=== PATIENT | male | born 1955 | race Caucasian/White ===

== ENCOUNTER 2017-05-25 12:20 | Inpatient (IN) | payer SELFPAY ==
[~2017-05-25] VITALS: Ht 188 cm; Wt 92.1 kg
[~2017-05-25 12:20] MED LIST: AMLO5TAB4 PO; CEPH-569 PO
[2017-05-25] MEDS ORDERED: METHYLPREDNISOLONE SOD SUCC 125 MG/2 ML VIAL IV STA (15:59)
[2017-05-25] MEDS ORDERED: ONDANSETRON HCL 4MG/2ML VIAL IV STA (15:59)
[2017-05-25] MEDS ORDERED: SODIUM CHLORIDE 0.9% 500 ML IV ONE (15:59)
[2017-05-25] MEDS ORDERED: FUROSEMIDE 40MG/4ML VIAL IV STA (15:59)
[2017-05-25] MEDS ORDERED: VANCOMYCIN 1 G PREMIX 200 ML IV ONE (16:00)
[2017-05-25] MEDS ORDERED: PIPERACILLIN/TAZ 3.375G PREMIX 50 ML IV ONE (16:00)
[2017-05-25] MEDS ORDERED: IPRATROPIUM/ALBUTEROL 0.5-3(2.5)MG/3ML NEB HHN ONE (16:15)
[2017-05-25 16:36] LABS: BASOPHILS % 1.2 % (0.0-2.0); EOSINOPHILS % 2.9 % (0.0-5.0); HEMATOCRIT. 41.2 % (42.0-52.0); HEMOGLOBIN. 13.4 g/dL (14.0-18.0); LYMPHOCYTES % 11.1 % (20.0-50.0); MEAN CORPUSCULAR HEMOGLOBIN 29.8 pg (28.0-32.0); MEAN CORPUSCULAR VOLUME 92.1 fL (80.0-94.0); MEAN PLATELET VOLUME 10.3 fl (7.4-10.4); MONOCYTES % 7.8 % (2.0-8.0); PLATELET 158 x1000/uL (130-400); RED BLOOD CELL COUNT 4.48 mill/uL (4.7-6.1); RED CELL DISTRIBUTION WIDTH 14.1 % (11.6-14.6)
[2017-05-25 16:42] LABS: CHLORIDE 111 mEq/L (98-107)
[2017-05-25 16:45] LABS: PARTIAL THROMBOPLASTIN TIME 24.5 sec (24.0-34.0); PROTHROMBIN TIME 10.3 sec
[2017-05-25 16:53] LABS: CARBON DIOXIDE 27 mEq/L (21-32); CREATINE KINASE 207 IU/L (39-308); ETHANOL BLOOD < 10 mg/dL
[2017-05-25] MEDS ORDERED: CLONIDINE 0.1MG TABLET PO ONE (18:45)
[2017-05-25 19:28] LABS: *AMPHETAMINES SCREEN URINE PRESUMTIVE POSITIVE (NEGATIVE); *BARBITURATES SCREEN URINE NEGATIVE (NEGATIVE); *BENZODIAZEPINES SCREEN URINE NEGATIVE (NEGATIVE); *COCAINE SCREEN URINE NEGATIVE (NEGATIVE); CANNABINOID URINE SCREEN NEGATIVE (NEGATIVE); METHADONE URINE SCREEN NEGATIVE (NEGATIVE); OPIATES URINE SCREEN NEGATIVE (NEGATIVE); PHENCYCLIDINE URINE SCREEN NEGATIVE (NEGATIVE)
[2017-05-25 20:41] VITALS: BP 160/103
[2017-05-25 20:47] VITALS: BP 160/103
[2017-05-25] MEDS ORDERED: ACETAMINOPHEN 325MG TABLET PO PRN (21:45)
[2017-05-25] MEDS ORDERED: VANCOMYCIN 1 G PREMIX 200 ML IV NR (23:00)
[2017-05-26 00:01] VITALS: BP 153/107
[2017-05-26] MEDS ORDERED: VANCOMYCIN 1 G PREMIX 200 ML IV NR (02:00)
[2017-05-26 04:00] VITALS: BP 154/98
[2017-05-26 06:02] LABS: HEMATOCRIT. 40.9 % (42.0-52.0); HEMOGLOBIN. 13.4 g/dL (14.0-18.0); MEAN CORPUSCULAR HEMOGLOBIN 29.9 pg (28.0-32.0); MEAN CORPUSCULAR VOLUME 91.3 fL (80.0-94.0); MEAN PLATELET VOLUME 10.5 fl (7.4-10.4); PLATELET 147 x1000/uL (130-400); RED BLOOD CELL COUNT 4.48 mill/uL (4.7-6.1); RED CELL DISTRIBUTION WIDTH 13.8 % (11.6-14.6)
[2017-05-26 08:00] VITALS: BP 150/99
[2017-05-26] MEDS: FUROSEMIDE 40MG TABLET PO SCH (08:22)
[2017-05-26] MEDS: AMLODIPINE 10MG TABLET PO SCH (08:25)
[2017-05-26 12:00] VITALS: BP 147/103
[2017-05-26] MEDS: CLONIDINE 0.1MG TABLET PO PRN ×2 (13:34→20:52)
[2017-05-26 13:48] LABS: PLATELET ESTIMATE NORMAL
[2017-05-26 16:00] VITALS: BP 137/99
[2017-05-26 20:00] VITALS: BP 138/109
[2017-05-27] VITALS (8 sets, daily range): BP systolic 141–156; BP diastolic 90–113
[2017-05-27] MEDS ORDERED: IPRATROPIUM/ALBUTEROL 0.5-3(2.5)MG/3ML NEB HHN PRN (06:00)
[2017-05-27] MEDS: FUROSEMIDE 40MG TABLET PO SCH (08:23)
[2017-05-27] MEDS: AMLODIPINE 10MG TABLET PO SCH (08:23)
[2017-05-27 09:33] LABS: T4 FREE 0.97 ng/dL (0.76-1.46)
[2017-05-27] MEDS: LOSARTAN POTASSIUM 50 MG TABLET PO SCH (13:05)
[2017-05-27] MEDS: VANCOMYCIN 1 G PREMIX 200 ML IV SCH (16:27)
[2017-05-27] MEDS: CLONIDINE 0.1MG TABLET PO PRN (16:33)
[2017-05-27 18:42] LABS: CREATINE KINASE MB FRACTION 3.2 ng/mL (0.5-3.6); TROPONIN I 0.08 ng/mL (0.00-0.04)
[2017-05-28 00:05] VITALS: BP 152/100
[2017-05-28 02:55] LABS: TROPONIN I 0.08 ng/mL (0.00-0.04)
[2017-05-28 04:00] VITALS: BP 155/99
[2017-05-28 08:00] VITALS: BP 162/97
[2017-05-28] MEDS: LOSARTAN POTASSIUM 50 MG TABLET PO SCH (08:57)
[2017-05-28] MEDS: FUROSEMIDE 40MG TABLET PO SCH (08:57)
[2017-05-28] MEDS: AMLODIPINE 10MG TABLET PO SCH (08:57)
[2017-05-28 09:18] LABS: CREATINE KINASE MB FRACTION 2.7 ng/mL (0.5-3.6); TROPONIN I 0.09 ng/mL (0.00-0.04)
[2017-05-28 12:00] VITALS: BP 127/87
[2017-05-28] MEDS ORDERED: CEFTRIAXONE 1 G PREMIX 50 ML IV SCH (12:00)
[2017-05-28 12:12] LABS: BASOPHILS % 1.3 % (0.0-2.0); EOSINOPHILS % 1.2 % (0.0-5.0); HEMATOCRIT. 45.1 % (42.0-52.0); HEMOGLOBIN. 14.8 g/dL (14.0-18.0); LYMPHOCYTES % 7.8 % (20.0-50.0); MEAN CORPUSCULAR HEMOGLOBIN 29.7 pg (28.0-32.0); MEAN CORPUSCULAR VOLUME 90.7 fL (80.0-94.0); MONOCYTES % 6.5 % (2.0-8.0); NEUTROPHILS % 83.2 % (40.0-76.0); PLATELET 171 x1000/uL (130-400); RED BLOOD CELL COUNT 4.97 mill/uL (4.7-6.1); RED CELL DISTRIBUTION WIDTH 14.1 % (11.6-14.6)
[2017-05-28 12:24] LABS: CARBON DIOXIDE 28 mEq/L (21-32); CHLORIDE 103 mEq/L (98-107)
[2017-05-28 16:00] VITALS: BP 140/99
[2017-05-28] MEDS: VANCOMYCIN 1 G PREMIX 200 ML IV SCH (16:03)
== END 2017-05-28 18:08 | disposition left against medical advice (07) | DRG 460 ==
LOC: ER 18:48 → 7WST 18:49 → EDBEDREQ 18:51 → ER 18:59 → ENRESERV 19:19
PROVIDERS: ADMIT Family Medicine; ATTEND Family Medicine
DX: N17.9 Acute kidney failure, unspecified (principal); E11.22 Type 2 diabetes mellitus with diabetic chronic kidney disease; I12.9 Hypertensive chronic kidney disease with stage 1 through stage 4 chronic kidney disease, or unspecified chronic kidney disease; J44.9 Chronic obstructive pulmonary disease, unspecified; Z53.21 Procedure and treatment not carried out due to patient leaving prior to being seen by health care provider; F15.10 Other stimulant abuse, uncomplicated; F17.210 Nicotine dependence, cigarettes, uncomplicated; I86.1 Scrotal varices; I89.0 Lymphedema, not elsewhere classified; N18.9 Chronic kidney disease, unspecified; Z60.2 Problems related to living alone; L03.90 Cellulitis, unspecified
CPT/HCPCS: 36415; 71010; 76770; 80048; 80053; 80061; 80202; 80305; 82550; 82553; 83036; 83605; 83690; 83880; 84439; 84443; 84484; 85025; 85379; 85610; 85730; 87040; 87086; 93005; 93970; 94640; 96365; 96367; 96375; 99285; 99406; G0482; J0696; J1940; J2405; J2543; J2930; J3370; J7040; J7050; J7620

== ENCOUNTER 2017-07-08 06:23 | Inpatient (IN) | payer SELFPAY ==
[~2017-07-08] VITALS: Ht 188 cm; Wt 93.7 kg
[2017-07-08 07:25] LABS: EOSINOPHILS % 2.7 % (0.0-5.0); HEMATOCRIT. 39.6 % (42.0-52.0); HEMOGLOBIN. 12.8 g/dL (14.0-18.0); LYMPHOCYTES % 11.8 % (20.0-50.0); MEAN CORPUSCULAR VOLUME 89.7 fL (80.0-94.0); MEAN PLATELET VOLUME 10.1 fl (7.4-10.4); MONOCYTES % 9.5 % (2.0-8.0); PLATELET 179 x1000/uL (130-400); RED BLOOD CELL COUNT 4.41 mill/uL (4.7-6.1); RED CELL DISTRIBUTION WIDTH 14.3 % (11.6-14.6)
[2017-07-08 07:30] LABS: PROTHROMBIN TIME 10.7 sec (9.4-11.6)
[2017-07-08 07:40] LABS: CARBON DIOXIDE 23 mEq/L (21-32); CHLORIDE 109 mEq/L (98-107); TROPONIN I 0.09 ng/mL (0.00-0.04)
[2017-07-08] MEDS ORDERED: FUROSEMIDE 20MG/2ML VIAL IVP ONE (09:00)
[2017-07-08] MEDS ORDERED: HYDRALAZINE 20MG/ML VIAL IV ONE (09:45)
[2017-07-08] MEDS ORDERED: MAGNESIUM/ALUMINUM HYDROXIDE/SIMETHICONE 30ML UDC PO PRN (10:45)
[2017-07-08] MEDS ORDERED: FUROSEMIDE 40MG/4ML VIAL IV SCH ×2 (10:45→15:45)
[2017-07-08] MEDS ORDERED: IPRATROPIUM/ALBUTEROL 0.5-3(2.5)MG/3ML NEB INH PRN (10:45)
[2017-07-08] MEDS ORDERED: GUAIFENESIN 200MG/10ML SUGAR FREE UDC PO PRN (10:45)
[2017-07-08] MEDS ORDERED: DOCUSATE SODIUM 100MG CAPSULE PO PRN (10:45)
[2017-07-08] MEDS ORDERED: CLONIDINE 0.1MG TABLET PO PRN (10:45)
[2017-07-08] MEDS ORDERED: AMLODIPINE 10MG TABLET PO SCH (10:45)
[2017-07-08] MEDS ORDERED: ENOXAPARIN 40MG/0.4ML SYR SUBCUT SCH (10:45)
[2017-07-08] MEDS ORDERED: DIPHENHYDRAMINE 50MG/ML VIAL IV PRN (10:45)
[2017-07-08] MEDS ORDERED: ONDANSETRON HCL 4MG/2ML VIAL IV PRN (10:45)
[2017-07-08] MEDS ORDERED: HYDROMORPHONE HCL/PF 2MG/ML CPJ IV PRN ×2 (10:45→15:45)
[2017-07-08] MEDS ORDERED: ACETAMINOPHEN 325MG TABLET PO PRN (10:45)
[2017-07-08 15:25] VITALS: BP 152/115
[2017-07-08 15:52] VITALS: BP 152/115
[2017-07-08 16:58] LABS: CREATINE KINASE MB FRACTION 5.9 ng/mL (0.5-3.6); TROPONIN I 0.07 ng/mL (0.00-0.04)
[2017-07-08] MEDS: CLONIDINE 0.1MG TABLET PO PRN (18:02)
[2017-07-08 18:03] VITALS: BP 159/118
[2017-07-08 19:59] VITALS: BP 148/88
[2017-07-09 00:02] VITALS: BP 154/115
[2017-07-09] MEDS: CLONIDINE 0.1MG TABLET PO PRN (00:30)
[2017-07-09 04:00] VITALS: BP 159/115
[2017-07-09 08:00] VITALS: BP 148/99
[2017-07-09] MEDS: ASPIRIN 81MG EC TABLET PO SCH (08:49)
[2017-07-09] MEDS: AMLODIPINE 10MG TABLET PO SCH (08:50)
[2017-07-09] MEDS: ENOXAPARIN 40MG/0.4ML SYR SUBCUT SCH (08:57)
[2017-07-09] MEDS ORDERED: ASPIRIN 81MG EC TABLET PO SCH (09:00)
[2017-07-09 12:00] VITALS: BP 145/93
[2017-07-09] MEDS: METOPROLOL TARTRATE 25MG TABLET PO SCH ×2 (12:30→20:59)
[2017-07-09 16:00] VITALS: BP 142/95
[2017-07-09 20:00] VITALS: BP 138/96
[2017-07-10] VITALS: BP 132/83
[2017-07-10 04:00] VITALS: BP 124/78
[2017-07-10 08:00] VITALS: BP 143/94
[2017-07-10] MEDS: METOPROLOL TARTRATE 25MG TABLET PO SCH (08:26)
[2017-07-10] MEDS: AMLODIPINE 10MG TABLET PO SCH (08:26)
[2017-07-10] MEDS: ASPIRIN 81MG EC TABLET PO SCH (08:26)
[2017-07-10] MEDS: ENOXAPARIN 40MG/0.4ML SYR SUBCUT SCH (08:27)
[2017-07-10] MEDS ORDERED: FUROSEMIDE 40MG/4ML VIAL IV SCH (09:00)
[2017-07-10 12:00] VITALS: BP 140/78
== END 2017-07-10 12:39 | disposition home or self-care (01) | DRG 194 ==
LOC: ER 06:23 → ENRESERV 13:23 → ER 15:30 → 7WST 15:39
PROVIDERS: ADMIT Hospitalist; ATTEND Hospitalist
DX: I13.0 Hypertensive heart and chronic kidney disease with heart failure and stage 1 through stage 4 chronic kidney disease, or unspecified chronic kidney disease (principal); F15.10 Other stimulant abuse, uncomplicated; I50.21 Acute systolic (congestive) heart failure; F17.200 Nicotine dependence, unspecified, uncomplicated; N18.9 Chronic kidney disease, unspecified; N50.89 Other specified disorders of the male genital organs
CPT/HCPCS: 36415; 71010; 80053; 82550; 82553; 83880; 84484; 85025; 85610; 93005; 93306; 93970; 96374; 96375; 99285; J0360; J1650; J1940

== ENCOUNTER 2017-08-09 14:51 | Emergency (ER) | payer SELFPAY ==
[~2017-08-09] VITALS: Ht 188 cm; Wt 95.0 kg
[2017-08-09 15:40] VITALS: BP 144/94
== END 2017-08-09 16:00 | disposition left against medical advice (07) ==
LOC: ER 15:53
DX: M79.89 Other specified soft tissue disorders (principal); Z53.21 Procedure and treatment not carried out due to patient leaving prior to being seen by health care provider

== ENCOUNTER 2017-08-10 03:32 | Emergency (ER) | payer SELFPAY ==
[~2017-08-10] VITALS: Ht 188 cm; Wt 95.0 kg
[2017-08-10 10:05] VITALS: BP 145/90
== END 2017-08-10 10:15 | disposition home or self-care (01) ==
LOC: ER 03:33
DX: L03.116 Cellulitis of left lower limb (principal); I10 Essential (primary) hypertension; F17.200 Nicotine dependence, unspecified, uncomplicated; F15.10 Other stimulant abuse, uncomplicated
CPT/HCPCS: 99283; Z7610

== ENCOUNTER 2017-10-13 12:48 | Inpatient (IN) | payer SELFPAY ==
[~2017-10-13] VITALS: Ht 190.5 cm; Wt 106.6 kg
[2017-10-13] MEDS ORDERED: SODIUM CHLORIDE 0.9% 1000ML BAG (SEPSIS BOLUS) IV ONE (17:15)
[2017-10-13] MEDS ORDERED: VANCOMYCIN 1 G PREMIX 200 ML IV ONE (17:15)
[2017-10-13 17:24] LABS: BASOPHILS % 0.9 % (0.0-2.0); EOSINOPHILS % 1.5 % (0.0-5.0); HEMATOCRIT. 39.9 % (42.0-52.0); HEMOGLOBIN. 12.5 g/dL (14.0-18.0); LYMPHOCYTES % 8.2 % (20.0-50.0); MEAN CORPUSCULAR HEMOGLOBIN 27.2 pg (28.0-32.0); MEAN CORPUSCULAR VOLUME 86.8 fL (80.0-94.0); MEAN PLATELET VOLUME 9.7 fl (7.4-10.4); MONOCYTES % 10.7 % (2.0-8.0); NEUTROPHILS % 78.7 % (40.0-76.0); PLATELET 149 x1000/uL (130-400); RED CELL DISTRIBUTION WIDTH 16.4 % (11.6-14.6)
[2017-10-13 17:28] LABS: CHLORIDE 109 mEq/L (98-107)
[2017-10-13 17:33] LABS: CARBON DIOXIDE 21 mEq/L (21-32)
[2017-10-13] MEDS ORDERED: DIPHENHYDRAMINE 50MG/ML VIAL IV PRN (19:30)
[2017-10-13] MEDS ORDERED: SODIUM CHLORIDE 0.9% 1,000 ML IV ONE (19:30)
[2017-10-13] MEDS ORDERED: DOCUSATE SODIUM 100MG CAPSULE PO PRN (19:30)
[2017-10-13] MEDS ORDERED: ACETAMINOPHEN 325MG TABLET PO PRN (19:30)
[2017-10-13] MEDS ORDERED: ONDANSETRON HCL 4MG/2ML VIAL IV PRN (19:30)
[2017-10-13] MEDS ORDERED: MORPHINE SULFATE 2 MG/ML CPJ (NOT FOR IM USE) IV PRN (19:30)
[2017-10-13] MEDS ORDERED: MAGNESIUM/ALUMINUM HYDROXIDE/SIMETHICONE 30ML UDC PO PRN (19:30)
[2017-10-13] MEDS: CLONIDINE 0.1MG TABLET PO PRN (20:51)
[2017-10-13 22:00] VITALS: BP 146/100
[2017-10-14] VITALS: BP 126/89
[2017-10-14] MEDS ORDERED: DEXTROSE 50% WATER 50ML SYRINGE IV PRN ×2 (01:45→02:45)
[2017-10-14 04:00] VITALS: BP 152/99
[2017-10-14 05:21] LABS: CLARITY URINE CLEAR (CLEAR); COLOR URINE YELLOW (YELLOW); KETONES URINE NEGATIVE (NEGATIVE); LEUKOCYTE ESTERASE URINE NEGATIVE (NEGATIVE); NITRITE URINE NEGATIVE (NEGATIVE); OCCULT BLOOD URINE NEGATIVE (NEGATIVE); PROTEIN URINE 2+ (NEGATIVE)
[2017-10-14 06:02] LABS: *AMPHETAMINES SCREEN URINE PRESUMTIVE POSITIVE (NEGATIVE); *BARBITURATES SCREEN URINE NEGATIVE (NEGATIVE); *BENZODIAZEPINES SCREEN URINE NEGATIVE (NEGATIVE); *COCAINE SCREEN URINE NEGATIVE (NEGATIVE); CANNABINOID URINE SCREEN NEGATIVE (NEGATIVE); METHADONE URINE SCREEN NEGATIVE (NEGATIVE); OPIATES URINE SCREEN NEGATIVE (NEGATIVE); PHENCYCLIDINE URINE SCREEN NEGATIVE (NEGATIVE)
[2017-10-14] MEDS: BLOOD SUGAR DIAGNOSTIC STRIP TEST SCH ×4 (06:42→21:21)
[2017-10-14 07:03] LABS: HEMATOCRIT. 36.5 % (42.0-52.0); HEMOGLOBIN. 11.8 g/dL (14.0-18.0); MEAN CORPUSCULAR HEMOGLOBIN 27.9 pg (28.0-32.0); MEAN CORPUSCULAR VOLUME 86.5 fL (80.0-94.0); MEAN PLATELET VOLUME 9.9 fl (7.4-10.4); PLATELET 135 x1000/uL (130-400); RED BLOOD CELL COUNT 4.22 mill/uL (4.7-6.1); RED CELL DISTRIBUTION WIDTH 16.7 % (11.6-14.6)
[2017-10-14 07:47] LABS: PHOSPHORUS 4.5 mg/dL (2.5-4.9)
[2017-10-14 08:00] VITALS: BP 156/100
[2017-10-14] MEDS: INSULIN LISPRO 100 UNITS/ML SUBCUT SCH ×4 (08:10→21:00)
[2017-10-14] MEDS: ENOXAPARIN 40MG/0.4ML SYR SUBCUT SCH (09:22)
[2017-10-14] MEDS: AMLODIPINE 5MG TABLET PO SCH (09:23)
[2017-10-14 09:26] LABS: PLATELET ESTIMATE NORMAL
[2017-10-14 12:00] VITALS: BP 147/97
[2017-10-14] MEDS ORDERED: VANCOMYCIN 1 G PREMIX 200 ML IV SCH (12:00)
[2017-10-14 16:00] VITALS: BP 155/97
[2017-10-14 20:00] VITALS: BP 156/89
[2017-10-14 22:17] LABS: PHOSPHORUS 3.7 mg/dL (2.5-4.9)
[2017-10-15] VITALS (7 sets, daily range): BP systolic 130–163; BP diastolic 83–100
[2017-10-15 07:32] LABS: HEMATOCRIT. 36.2 % (42.0-52.0); HEMOGLOBIN. 11.6 g/dL (14.0-18.0); MEAN CORPUSCULAR HEMOGLOBIN 27.6 pg (28.0-32.0); MEAN CORPUSCULAR VOLUME 86.4 fL (80.0-94.0); MEAN PLATELET VOLUME 10.2 fl (7.4-10.4); PLATELET 143 x1000/uL (130-400); RED BLOOD CELL COUNT 4.19 mill/uL (4.7-6.1); RED CELL DISTRIBUTION WIDTH 16.6 % (11.6-14.6)
[2017-10-15] MEDS: BLOOD SUGAR DIAGNOSTIC STRIP TEST SCH ×4 (07:40→21:56)
[2017-10-15] MEDS: INSULIN LISPRO 100 UNITS/ML SUBCUT SCH ×4 (08:10→21:00)
[2017-10-15] MEDS: AMLODIPINE 5MG TABLET PO SCH (09:36)
[2017-10-15] MEDS: ENOXAPARIN 40MG/0.4ML SYR SUBCUT SCH (09:37)
[2017-10-15 11:24] LABS: PLATELET ESTIMATE NORMAL
[2017-10-15] MEDS ORDERED: VANCOMYCIN 1 G PREMIX 200 ML IV SCH ×2 (12:00→14:00)
[2017-10-15] MEDS: PIPERACILLIN/TAZ 3.375G PREMIX 50 ML IV SCH ×2 (17:03→21:56)
[2017-10-15] MEDS ORDERED: IPRATROPIUM BROMIDE (0.02%) 0.5MG/2.5ML NEB HHN PRN (17:30)
[2017-10-15] MEDS: FUROSEMIDE 40MG/4ML VIAL IVP SCH (17:52)
[2017-10-16] VITALS: BP 122/73
[2017-10-16] MEDS: PIPERACILLIN/TAZ 3.375G PREMIX 50 ML IV SCH ×3 (03:45→17:23)
[2017-10-16 04:00] VITALS: BP 152/83
[2017-10-16] MEDS: BLOOD SUGAR DIAGNOSTIC STRIP TEST SCH ×4 (05:33→21:00)
[2017-10-16 07:28] LABS: BASOPHILS % 1.1 % (0.0-2.0); EOSINOPHILS % 3.2 % (0.0-5.0); HEMATOCRIT. 36.1 % (42.0-52.0); HEMOGLOBIN. 11.6 g/dL (14.0-18.0); MEAN CORPUSCULAR VOLUME 86.9 fL (80.0-94.0); MEAN PLATELET VOLUME 9.9 fl (7.4-10.4); MONOCYTES % 12.1 % (2.0-8.0); NEUTROPHILS % 74.6 % (40.0-76.0); PLATELET 146 x1000/uL (130-400); RED BLOOD CELL COUNT 4.15 mill/uL (4.7-6.1); RED CELL DISTRIBUTION WIDTH 16.7 % (11.6-14.6)
[2017-10-16 08:00] VITALS: BP 147/82
[2017-10-16] MEDS: INSULIN LISPRO 100 UNITS/ML SUBCUT SCH ×4 (08:10→20:59)
[2017-10-16] MEDS: AMLODIPINE 5MG TABLET PO SCH (09:20)
[2017-10-16] MEDS: ENOXAPARIN 40MG/0.4ML SYR SUBCUT SCH (09:21)
[2017-10-16] MEDS: VANCOMYCIN 1 G PREMIX 200 ML IV SCH (11:00)
[2017-10-16 12:00] VITALS: BP 146/89
[2017-10-16 13:59] LABS: HEPATITIS B CORE AB IGM <0.05
[2017-10-16 14:19] LABS: HEPATITIS B SURFACE AB < 3.1 mIU/mL
[2017-10-16 16:00] VITALS: BP 162/90
[2017-10-16] MEDS: FUROSEMIDE 40MG/4ML VIAL IVP SCH (17:23)
[2017-10-16 20:00] VITALS: BP 162/99
[2017-10-16] MEDS: CLONIDINE 0.1MG TABLET PO PRN (20:58)
[2017-10-17] VITALS: BP 149/92
[2017-10-17] MEDS: PIPERACILLIN/TAZ 3.375G PREMIX 50 ML IV SCH ×3 (02:34→16:19)
[2017-10-17 04:00] VITALS: BP 158/93
[2017-10-17] MEDS: INSULIN LISPRO 100 UNITS/ML SUBCUT SCH ×3 (07:33→16:20)
[2017-10-17] MEDS: BLOOD SUGAR DIAGNOSTIC STRIP TEST SCH ×3 (07:33→16:20)
[2017-10-17 08:00] VITALS: BP 166/104
[2017-10-17] MEDS: AMLODIPINE 5MG TABLET PO SCH (08:45)
[2017-10-17] MEDS: ENOXAPARIN 40MG/0.4ML SYR SUBCUT SCH (08:45)
[2017-10-17] MEDS: VANCOMYCIN 1 G PREMIX 200 ML IV SCH (11:35)
[2017-10-17 12:00] VITALS: BP 152/84
[2017-10-17 16:00] VITALS: BP 156/86
[2017-10-17] MEDS: FUROSEMIDE 40MG/4ML VIAL IVP SCH (16:19)
== END 2017-10-17 18:18 | disposition home or self-care (01) | DRG 383 ==
LOC: ER 12:48 → 7WST 17:06 → SUPCPDRO 19:19 → ENRESERV 20:56
PROVIDERS: ADMIT Internal Medicine Nephrology; ATTEND Internal Medicine Nephrology
DX: L03.116 Cellulitis of left lower limb (principal); E11.22 Type 2 diabetes mellitus with diabetic chronic kidney disease; N17.9 Acute kidney failure, unspecified; N18.4 Chronic kidney disease, stage 4 (severe); E44.1 Mild protein-calorie malnutrition; L03.115 Cellulitis of right lower limb; F17.210 Nicotine dependence, cigarettes, uncomplicated; I12.9 Hypertensive chronic kidney disease with stage 1 through stage 4 chronic kidney disease, or unspecified chronic kidney disease; F15.90 Other stimulant use, unspecified, uncomplicated; I87.2 Venous insufficiency (chronic) (peripheral); J44.1 Chronic obstructive pulmonary disease with (acute) exacerbation; K76.9 Liver disease, unspecified; F19.10 Other psychoactive substance abuse, uncomplicated; Z68.29 Body mass index [BMI] 29.0-29.9, adult; Z91.19 Patient's noncompliance with other medical treatment and regimen
CPT/HCPCS: 36415; 76770; 80048; 80053; 80202; 80305; 81001; 82962; 83036; 83735; 83970; 84100; 84153; 85025; 86705; 86706; 86803; 87040; 87186; 93970; 94640; 94664; 96365; 99285; A6261; J1650; J1940; J2543; J3370; J7030; J7040; A4315

== ENCOUNTER 2017-11-10 11:02 | Inpatient (IN) | payer SELFPAY ==
[~2017-11-10] VITALS: Ht 182.9 cm; Wt 105.7 kg
[2017-11-10] MEDS ORDERED: FUROSEMIDE 40MG/4ML VIAL IVP ONE (11:45)
[2017-11-10 12:13] LABS: BASOPHILS % 0.5 % (0.0-2.0); EOSINOPHILS % 1.6 % (0.0-5.0); HEMATOCRIT. 37.9 % (42.0-52.0); HEMOGLOBIN. 11.7 g/dL (14.0-18.0); MEAN CORPUSCULAR HEMOGLOBIN 26.1 pg (28.0-32.0); MEAN CORPUSCULAR VOLUME 84.8 fL (80.0-94.0); MEAN PLATELET VOLUME 9.6 fl (7.4-10.4); MONOCYTES % 9.1 % (2.0-8.0); NEUTROPHILS % 80.8 % (40.0-76.0); PLATELET 160 x1000/uL (130-400); RED BLOOD CELL COUNT 4.47 mill/uL (4.7-6.1); RED CELL DISTRIBUTION WIDTH 16.8 % (11.6-14.6)
[2017-11-10 12:16] LABS: INR 1.1; PROTHROMBIN TIME 11.7 sec (9.4-11.6)
[2017-11-10 12:28] LABS: CARBON DIOXIDE 24 mEq/L (21-32); CHLORIDE 110 mEq/L (98-107); TROPONIN I 0.26 ng/mL (0.00-0.04)
[2017-11-10] MEDS ORDERED: ASPIRIN 325MG TABLET PO ONE (13:00)
[2017-11-10] MEDS ORDERED: DOCUSATE SODIUM 100MG CAPSULE PO PRN (17:15)
[2017-11-10] MEDS ORDERED: CLONIDINE 0.1MG TABLET PO PRN (17:15)
[2017-11-10] MEDS ORDERED: DIPHENHYDRAMINE 50MG/ML VIAL IV PRN (17:15)
[2017-11-10] MEDS ORDERED: MAGNESIUM/ALUMINUM HYDROXIDE/SIMETHICONE 30ML UDC PO PRN (17:15)
[2017-11-10] MEDS ORDERED: NA PHOS,M-B/NA PHOS,DI-BA ENEMA 118ML PR PRN (17:15)
[2017-11-10] MEDS ORDERED: ACETAMINOPHEN 325MG TABLET PO PRN (17:15)
[2017-11-10] MEDS ORDERED: GUAIFENESIN 200MG/10ML SUGAR FREE UDC PO PRN (17:15)
[2017-11-10] MEDS ORDERED: MORPHINE SULFATE 4 MG/ML CPJ (NOT FOR IM USE) IV PRN (17:15)
[2017-11-10] MEDS ORDERED: HYDROCODONE/ACETAMINOPHEN 5/325MG TABLET PO PRN (17:15)
[2017-11-10] MEDS ORDERED: IPRATROPIUM/ALBUTEROL 0.5-3(2.5)MG/3ML NEB INH PRN (17:15)
[2017-11-10] MEDS ORDERED: ALBUTEROL (0.083%) 2.5MG/3ML NEB ONE (17:49)
[2017-11-10] MEDS ORDERED: IPRATROPIUM BROMIDE (0.02%) 0.5MG/2.5ML NEB ONE (17:49)
[2017-11-10 20:30] VITALS: BP 158/89
[2017-11-10] MEDS ORDERED: LORAZEPAM 2MG/ML CPJ IV PRN (20:32)
[2017-11-10] MEDS: ENOXAPARIN 30MG/0.3ML SYR SUBCUT SCH (21:18)
[2017-11-10 22:12] LABS: TROPONIN I 0.22 ng/mL (0.00-0.04)
[2017-11-10 22:32] VITALS: BP 158/89
[2017-11-11 00:21] VITALS: BP 128/79
[2017-11-11 04:00] VITALS: BP_SYST 120; BP_SYST 150; BP_DIAS 70; BP_DIAS 99
[2017-11-11 05:50] LABS: BASOPHILS % 1.4 % (0.0-2.0); EOSINOPHILS % 1.9 % (0.0-5.0); HEMATOCRIT. 37.2 % (42.0-52.0); HEMOGLOBIN. 11.9 g/dL (14.0-18.0); LYMPHOCYTES % 11.5 % (20.0-50.0); MEAN CORPUSCULAR HEMOGLOBIN 27.1 pg (28.0-32.0); MEAN CORPUSCULAR VOLUME 84.5 fL (80.0-94.0); MEAN PLATELET VOLUME 9.6 fl (7.4-10.4); NEUTROPHILS % 76.2 % (40.0-76.0); PLATELET 159 x1000/uL (130-400); RED CELL DISTRIBUTION WIDTH 16.6 % (11.6-14.6)
[2017-11-11 07:15] LABS: CARBON DIOXIDE 24 mEq/L (21-32); CHLORIDE 107 mEq/L (98-107); HDL CHOLESTEROL 30 mg/dL (40-59); LDL CHOLESTEROL 66 mg/dL (5-100); T4 FREE 1.18 ng/dL (0.76-1.46); TROPONIN I 0.27 ng/mL (0.00-0.04)
[2017-11-11 08:00] VITALS: BP 154/106
[2017-11-11] MEDS: FUROSEMIDE 40MG/4ML VIAL IV SCH ×2 (08:12→14:12)
[2017-11-11] MEDS: HYDRALAZINE HCL 25MG TABLET PO SCH ×2 (08:13→14:14)
[2017-11-11] MEDS: ENOXAPARIN 30MG/0.3ML SYR SUBCUT SCH (08:14)
[2017-11-11] MEDS ORDERED: ASPIRIN 81MG EC TABLET PO SCH (09:00)
[2017-11-11] MEDS ORDERED: CARVEDILOL 3.125 MG TABLET PO SCH (09:00)
[2017-11-11] MEDS ORDERED: FUROSEMIDE 40MG/4ML VIAL IV SCH (09:00)
[2017-11-11 12:00] VITALS: BP 147/106
[2017-11-11 16:00] VITALS: BP 154/107
[2017-11-11 17:03] VITALS: BP 154/107
[2017-11-12] MEDS ORDERED: ENOXAPARIN 40MG/0.4ML SYR SUBCUT SCH (09:00)
== END 2017-11-11 18:40 | disposition home or self-care (01) | DRG 194 ==
LOC: ER 11:02 → 7WST 13:06 → EDBEDREQTM 13:08 → EDBEDREQ 13:08 → ENRESERV 18:57
PROVIDERS: ADMIT Internal Medicine; ATTEND Internal Medicine
DX: I13.0 Hypertensive heart and chronic kidney disease with heart failure and stage 1 through stage 4 chronic kidney disease, or unspecified chronic kidney disease (principal); N17.0 Acute kidney failure with tubular necrosis; I24.9 Acute ischemic heart disease, unspecified; I25.10 Atherosclerotic heart disease of native coronary artery without angina pectoris; N18.9 Chronic kidney disease, unspecified; F17.200 Nicotine dependence, unspecified, uncomplicated; F15.10 Other stimulant abuse, uncomplicated; D64.9 Anemia, unspecified; I50.43 Acute on chronic combined systolic (congestive) and diastolic (congestive) heart failure; E46 Unspecified protein-calorie malnutrition; Z68.31 Body mass index [BMI] 31.0-31.9, adult; Z91.19 Patient's noncompliance with other medical treatment and regimen
CPT/HCPCS: 36415; 71045; 80048; 80053; 80061; 83605; 83690; 83880; 84439; 84443; 84484; 85025; 85610; 87040; 93005; 94640; 96374; 99285; J1650; J1940; J7611

== ENCOUNTER 2018-03-08 07:42 | Emergency (ER) | payer MEDICAID ==
[~2018-03-08] VITALS: Ht 188 cm; Wt 95.0 kg
[~2018-03-08 07:42] MED LIST changes: +ALBU6.7H INH; -AMLO5TAB4 PO; -CEPH-569 PO; +FLUT1DIS3 IH; +NICO-682 TD
[2018-03-08 08:50] VITALS: BP 162/98
== END 2018-03-08 08:52 | disposition home or self-care (01) ==
LOC: ER 07:42
DX: R60.9 Edema, unspecified (principal); I50.9 Heart failure, unspecified; I11.0 Hypertensive heart disease with heart failure; F17.200 Nicotine dependence, unspecified, uncomplicated; F15.10 Other stimulant abuse, uncomplicated
CPT/HCPCS: 99283; Z7610

== ENCOUNTER 2018-07-16 11:17 | Inpatient (IN) | payer MEDICAID ==
[~2018-07-16] VITALS: Ht 190.5 cm; Wt 72.6 kg
[2018-07-16] MEDS ORDERED: ALBUTEROL (0.083%) 2.5MG/3ML NEB HHN STA (12:56)
[2018-07-16] MEDS ORDERED: PREDNISONE 20MG TABLET PO STA (12:56)
[2018-07-16] MEDS ORDERED: IPRATROPIUM BROMIDE (0.02%) 0.5MG/2.5ML NEB HHN STA (12:56)
[2018-07-16 14:51] LABS: BASOPHILS % 1.5 % (0.0-2.0); EOSINOPHILS % 0.6 % (0.0-5.0); HEMATOCRIT. 40.1 % (42.0-52.0); LYMPHOCYTES % 18.3 % (20.0-50.0); MEAN CORPUSCULAR HEMOGLOBIN 27.8 pg (28.0-32.0); MEAN CORPUSCULAR VOLUME 85.9 fL (80.0-94.0); MEAN PLATELET VOLUME 10.7 fl (7.4-10.4); MONOCYTES % 10.5 % (2.0-8.0); NEUTROPHILS % 69.1 % (40.0-76.0); PLATELET 120 x1000/uL (130-400); RED BLOOD CELL COUNT 4.67 mill/uL (4.7-6.1); RED CELL DISTRIBUTION WIDTH 18.6 % (11.6-14.6)
[2018-07-16 14:53] LABS: CHLORIDE 105 mEq/L (98-107); INR 1.2; PROTHROMBIN TIME 12.4 sec (9.1-11.1)
[2018-07-16] MEDS ORDERED: NITROGLYCERIN 0.4MG TABLET SL SL PRN ×2 (15:30→16:30)
[2018-07-16] MEDS ORDERED: ASPIRIN 81MG TABLET PO ONE (15:30)
[2018-07-16] MEDS ORDERED: FUROSEMIDE 40MG/4ML VIAL IVP ONE (15:30)
[2018-07-16] MEDS ORDERED: NITROGLYCERIN OINT 1GM/INCH UDPKT TD ONE (15:30)
[2018-07-16] MEDS ORDERED: DOCUSATE SODIUM 100MG CAPSULE PO PRN (16:30)
[2018-07-16] MEDS ORDERED: MAGNESIUM/ALUMINUM HYDROXIDE/SIMETHICONE 30ML UDC PO PRN (16:30)
[2018-07-16] MEDS ORDERED: IPRATROPIUM/ALBUTEROL 0.5-3(2.5)MG/3ML NEB INH PRN (16:30)
[2018-07-16] MEDS ORDERED: LORAZEPAM 0.5MG TABLET PO PRN (16:30)
[2018-07-16] MEDS ORDERED: ONDANSETRON HCL 4MG/2ML INJ IV PRN (16:30)
[2018-07-16] MEDS ORDERED: GUAIFENESIN 200MG/10ML SUGAR FREE UDC PO PRN (16:30)
[2018-07-16] MEDS ORDERED: LEVOFLOXACIN 500MG PREMIX 100 ML IV SCH (16:30)
[2018-07-16] MEDS ORDERED: ACETAMINOPHEN 325MG TABLET PO PRN (16:30)
[2018-07-16] MEDS ORDERED: NA PHOS,M-B/NA PHOS,DI-BA ENEMA 118ML PR PRN (16:30)
[2018-07-16] MEDS ORDERED: ENOXAPARIN 40MG/0.4ML SYR SUBCUT SCH (16:30)
[2018-07-16] MEDS ORDERED: TRAMADOL 50MG TABLET PO PRN (17:15)
[2018-07-16] MEDS: CLONIDINE 0.2MG TABLET PO PRN ×2 (20:17→22:34)
[2018-07-16] MEDS ORDERED: ZOLPIDEM TARTRATE 5MG TABLET PO PRN (21:00)
[2018-07-16 22:55] VITALS: BP 164/100
[2018-07-17] MEDS: HYDRALAZINE HCL 50MG TABLET PO SCH ×3 (01:10→14:00)
[2018-07-17] MEDS: LISINOPRIL 20MG TABLET PO SCH ×2 (01:10→09:52)
[2018-07-17] MEDS: AMLODIPINE 10MG TABLET PO SCH ×2 (01:10→09:52)
[2018-07-17] MEDS: FUROSEMIDE 40MG/4ML VIAL IVP SCH ×2 (01:11→09:51)
[2018-07-17] MEDS ORDERED: LEVOFLOXACIN 500MG PREMIX 100 ML IV SCH (02:00)
[2018-07-17] MEDS: IPRATROPIUM/ALBUTEROL 0.5-3(2.5)MG/3ML NEB HHN SCH ×4 (04:21→15:53)
[2018-07-17] MEDS: METHYLPREDNISOLONE SOD SUCC 125 MG/2 ML VIAL IV SCH ×2 (05:14→14:00)
[2018-07-17 07:55] VITALS: BP 123/75
[2018-07-17 08:08] LABS: CREATINE KINASE MB FRACTION 8.9 ng/mL (0.5-3.6)
[2018-07-17] MEDS ORDERED: ASPIRIN 325MG EC TABLET PO SCH (09:00)
[2018-07-17] MEDS ORDERED: ENOXAPARIN 30MG/0.3ML SYR SUBCUT SCH (09:00)
[2018-07-17] MEDS ORDERED: GUAIFENESIN/DM 600MG/30MG ER TAB 12HR PO SCH (09:00)
[2018-07-17] MEDS ORDERED: FAMOTIDINE 20MG TABLET PO SCH ×2 (09:00)
[2018-07-17 12:00] VITALS: BP 115/74
[2018-07-17 13:33] VITALS: BP 115/74
[2018-07-17 16:00] VITALS: BP 105/70
[2018-07-17 17:34] LABS: *BENZODIAZEPINES SCREEN URINE NEGATIVE (NEGATIVE); *COCAINE SCREEN URINE NEGATIVE (NEGATIVE); METHADONE URINE SCREEN NEGATIVE (NEGATIVE); OPIATES URINE SCREEN NEGATIVE (NEGATIVE)
[2018-07-17 17:35] LABS: *AMPHETAMINES SCREEN URINE PRESUMTIVE POSITIVE (NEGATIVE); *BARBITURATES SCREEN URINE NEGATIVE (NEGATIVE); CANNABINOID URINE SCREEN NEGATIVE (NEGATIVE); PHENCYCLIDINE URINE SCREEN NEGATIVE (NEGATIVE)
[2018-07-18] MEDS ORDERED: LEVOFLOXACIN 250MG PREMIX 50 ML IV SCH (02:00)
== END 2018-07-17 14:35 | disposition home or self-care (01) | DRG 194 ==
LOC: ER 11:17 → 8WST 16:36 → EDBEDREQ 16:45 → ENRESERV 20:23
PROVIDERS: ADMIT Internal Medicine; ATTEND Internal Medicine
DX: I13.0 Hypertensive heart and chronic kidney disease with heart failure and stage 1 through stage 4 chronic kidney disease, or unspecified chronic kidney disease (principal); J96.00 Acute respiratory failure, unspecified whether with hypoxia or hypercapnia; N17.0 Acute kidney failure with tubular necrosis; D63.8 Anemia in other chronic diseases classified elsewhere; F15.10 Other stimulant abuse, uncomplicated; F17.210 Nicotine dependence, cigarettes, uncomplicated; J44.1 Chronic obstructive pulmonary disease with (acute) exacerbation; R79.89 Other specified abnormal findings of blood chemistry; K59.00 Constipation, unspecified; F41.9 Anxiety disorder, unspecified; I50.40 Unspecified combined systolic (congestive) and diastolic (congestive) heart failure; E44.1 Mild protein-calorie malnutrition; Z68.20 Body mass index [BMI] 20.0-20.9, adult
CPT/HCPCS: 36415; 71045; 80053; 80061; 80305; 82550; 82553; 83036; 83880; 84484; 85025; 85610; 93005; 93970; 99285; J1650; J1940; J1956; J2930; J7512; J7611; J7620

== ENCOUNTER 2018-08-17 09:11 | Inpatient (IN) | payer MEDICAID ==
[~2018-08-17] VITALS: Ht 188 cm; Wt 88.5 kg
[2018-08-17] MEDS ORDERED: METHYLPREDNISOLONE SOD SUCC 125 MG/2 ML VIAL IV STA (10:11)
[2018-08-17] MEDS ORDERED: IPRATROPIUM/ALBUTEROL 0.5-3(2.5)MG/3ML NEB HHN ONE (10:15)
[2018-08-17] MEDS ORDERED: FUROSEMIDE 40MG/4ML VIAL IV ONE (10:15)
[2018-08-17] MEDS ORDERED: ASPIRIN 81MG TABLET PO ONE (10:15)
[2018-08-17 10:27] LABS: BASOPHILS % 1.1 % (0.0-2.0); EOSINOPHILS % 0.5 % (0.0-5.0); HEMATOCRIT. 40.8 % (42.0-52.0); HEMOGLOBIN. 13.2 g/dL (14.0-18.0); LYMPHOCYTES % 13.3 % (20.0-50.0); MEAN CORPUSCULAR HEMOGLOBIN 27.9 pg (28.0-32.0); MEAN CORPUSCULAR VOLUME 86.2 fL (80.0-94.0); MEAN PLATELET VOLUME 10.2 fl (7.4-10.4); MONOCYTES % 9.5 % (2.0-8.0); NEUTROPHILS % 75.6 % (40.0-76.0); PLATELET 137 x1000/uL (130-400); RED BLOOD CELL COUNT 4.74 mill/uL (4.7-6.1); RED CELL DISTRIBUTION WIDTH 16.8 % (11.6-14.6)
[2018-08-17 10:36] LABS: INR 1.1; PARTIAL THROMBOPLASTIN TIME 26.8 sec (23.4-31.0); PROTHROMBIN TIME 11.5 sec (9.1-11.1)
[2018-08-17 10:37] LABS: BG BASE EXCESS -3.4 mmol/L (-2.0-2.0); BG CARBOXYHEMOGLOBIN 1.2 % (0.5-1.5); BG DEOXYHEMOGLOBIN 3.3 % (0.0-5.0); BG FRACTION INSPIRED OXYGEN 21; BG METHEMOGLOBIN 0.2 % (0.0-1.5); BG OXYGEN SATURATION 96.7 % (92.0-98.5); BG OXYHEMOGLOBIN 95.3 % (94.0-97.0); BG PCO2 27.4 mmHg (35.0-45.0); BG PO2 90.5 mmHg (75.0-100.0); BG SAMPLE SITE LEFT RADIAL; BG TOTAL HEMOGLOBIN 13.2 g/dL (12.0-18.0); BG VENT MODE ROOM AIR
[2018-08-17 10:39] LABS: CHLORIDE 106 mEq/L (98-107); ETHANOL BLOOD < 10 mg/dL
[2018-08-17 11:07] LABS: CLARITY URINE CLEAR (CLEAR); COLOR URINE YELLOW (YELLOW); KETONES URINE NEGATIVE (NEGATIVE); LEUKOCYTE ESTERASE URINE NEGATIVE (NEGATIVE); NITRITE URINE NEGATIVE (NEGATIVE); OCCULT BLOOD URINE TRACE (NEGATIVE); PROTEIN URINE 2+ (NEGATIVE); SPECIFIC GRAVITY URINE 1.011 (1.005-1.030); UROBILINOGEN URINE 0.2 E.U./dL (0.2-1.0)
[2018-08-17 11:22] LABS: *AMPHETAMINES SCREEN URINE PRESUMTIVE POSITIVE (NEGATIVE); *BARBITURATES SCREEN URINE NEGATIVE (NEGATIVE); *BENZODIAZEPINES SCREEN URINE NEGATIVE (NEGATIVE); *COCAINE SCREEN URINE NEGATIVE (NEGATIVE); CANNABINOID URINE SCREEN NEGATIVE (NEGATIVE); METHADONE URINE SCREEN NEGATIVE (NEGATIVE); OPIATES URINE SCREEN NEGATIVE (NEGATIVE); PHENCYCLIDINE URINE SCREEN NEGATIVE (NEGATIVE)
[2018-08-17] MEDS ORDERED: CLONIDINE 0.2MG TABLET PO ONE (14:30)
[2018-08-17 15:36] VITALS: BP 162/106
[2018-08-17 15:51] VITALS: BP 162/106
[2018-08-17] MEDS ORDERED: ACETAMINOPHEN 325MG TABLET PO PRN (16:00)
[2018-08-17] MEDS ORDERED: ONDANSETRON HCL 4MG/2ML INJ IV PRN (16:00)
[2018-08-17] MEDS ORDERED: CLONIDINE 0.1MG TABLET PO PRN (16:00)
[2018-08-17] MEDS ORDERED: IPRATROPIUM/ALBUTEROL 0.5-3(2.5)MG/3ML NEB INH PRN (16:00)
[2018-08-17] MEDS ORDERED: MAGNESIUM/ALUMINUM HYDROXIDE/SIMETHICONE 30ML UDC PO PRN (16:00)
[2018-08-17] MEDS ORDERED: ACETAMINOPHEN 650MG/20.3ML UDC GT PRN (16:00)
[2018-08-17] MEDS ORDERED: ACETAMINOPHEN 650MG SUPP PR PRN (16:00)
[2018-08-17] MEDS ORDERED: AMLODIPINE 10MG TABLET PO NR (18:00)
[2018-08-17] MEDS: METHYLPREDNISOLONE SOD SUCC 125 MG/2 ML VIAL IV SCH (18:18)
[2018-08-17] MEDS: ENOXAPARIN 30MG/0.3ML SYR SUBCUT SCH (18:18)
[2018-08-17 20:00] VITALS: BP 138/87
[2018-08-17] MEDS: IPRATROPIUM/ALBUTEROL 0.5-3(2.5)MG/3ML NEB INH SCH (20:20)
[2018-08-17] MEDS: SODIUM CHLORIDE 0.9% INJ 3ML FLUSH IVF SCH (20:57)
[2018-08-17] MEDS ORDERED: NA PHOS,M-B/NA PHOS,DI-BA ENEMA 118ML PR PRN (21:00)
[2018-08-17 23:32] LABS: CREATINE KINASE MB FRACTION 7.4 ng/mL (0.5-3.6)
[2018-08-18 00:05] VITALS: BP 141/69
[2018-08-18] MEDS: METHYLPREDNISOLONE SOD SUCC 125 MG/2 ML VIAL IV SCH ×4 (00:07→18:41)
[2018-08-18] MEDS: IPRATROPIUM/ALBUTEROL 0.5-3(2.5)MG/3ML NEB INH SCH ×4 (02:36→20:05)
[2018-08-18 04:00] VITALS: BP 133/79
[2018-08-18] MEDS: SODIUM CHLORIDE 0.9% INJ 3ML FLUSH IVF SCH ×3 (05:41→21:03)
[2018-08-18 07:49] LABS: CREATINE KINASE MB FRACTION 6.6 ng/mL (0.5-3.6)
[2018-08-18 08:00] VITALS: BP 138/90
[2018-08-18] MEDS: AMLODIPINE 10MG TABLET PO SCH (09:24)
[2018-08-18 12:00] VITALS: BP 124/84
[2018-08-18 16:00] VITALS: BP 137/96
[2018-08-18] MEDS: ENOXAPARIN 30MG/0.3ML SYR SUBCUT SCH (18:41)
[2018-08-18] MEDS ORDERED: FUROSEMIDE 40MG/4ML VIAL IVP NR (19:30)
[2018-08-18 20:00] VITALS: BP 129/88
[2018-08-19] VITALS (7 sets, daily range): BP systolic 117–149; BP diastolic 76–104
[2018-08-19] MEDS: IPRATROPIUM/ALBUTEROL 0.5-3(2.5)MG/3ML NEB INH SCH ×4 (01:50→20:11)
[2018-08-19] MEDS: SODIUM CHLORIDE 0.9% INJ 3ML FLUSH IVF SCH ×3 (05:23→21:32)
[2018-08-19] MEDS: METHYLPREDNISOLONE SOD SUCC 40 MG/ML VIAL IV SCH ×2 (05:23→19:09)
[2018-08-19 06:26] LABS: HEMATOCRIT. 39.4 % (42.0-52.0); HEMOGLOBIN. 12.8 g/dL (14.0-18.0); MEAN CORPUSCULAR HEMOGLOBIN 27.7 pg (28.0-32.0); MEAN CORPUSCULAR VOLUME 85.4 fL (80.0-94.0); MEAN PLATELET VOLUME 10.1 fl (7.4-10.4); PLATELET 138 x1000/uL (130-400); RED BLOOD CELL COUNT 4.62 mill/uL (4.7-6.1); RED CELL DISTRIBUTION WIDTH 16.8 % (11.6-14.6)
[2018-08-19 06:55] LABS: CHLORIDE 101 mEq/L (98-107)
[2018-08-19] MEDS: FUROSEMIDE 40MG/4ML VIAL IVP SCH (09:18)
[2018-08-19] MEDS: AMLODIPINE 10MG TABLET PO SCH (09:19)
[2018-08-19 13:40] LABS: T4 FREE 0.91 ng/dL (0.76-1.46)
[2018-08-19 14:01] LABS: PLATELET ESTIMATE NORMAL
[2018-08-19] MEDS: ENOXAPARIN 30MG/0.3ML SYR SUBCUT SCH (19:10)
[2018-08-19] MEDS ORDERED: BUMETANIDE 1MG TABLET PO SCH (20:30)
[2018-08-19] MEDS ORDERED: DIPHENHYDRAMINE 50MG/ML VIAL ONE (22:06)
[2018-08-20 01:04] LABS: CREATINE KINASE MB FRACTION 3.8 ng/mL (0.5-3.6)
[2018-08-20] MEDS: IPRATROPIUM/ALBUTEROL 0.5-3(2.5)MG/3ML NEB INH SCH ×3 (01:50→14:24)
[2018-08-20 04:00] VITALS: BP 133/79
[2018-08-20] MEDS: METHYLPREDNISOLONE SOD SUCC 40 MG/ML VIAL IV SCH ×2 (06:11→09:21)
[2018-08-20] MEDS: SODIUM CHLORIDE 0.9% INJ 3ML FLUSH IVF SCH (06:11)
[2018-08-20 06:36] LABS: HEMATOCRIT. 40.2 % (42.0-52.0); HEMOGLOBIN. 12.7 g/dL (14.0-18.0); MEAN CORPUSCULAR HEMOGLOBIN 27.2 pg (28.0-32.0); MEAN CORPUSCULAR VOLUME 85.8 fL (80.0-94.0); MEAN PLATELET VOLUME 10.3 fl (7.4-10.4); PLATELET 144 x1000/uL (130-400); RED BLOOD CELL COUNT 4.69 mill/uL (4.7-6.1); RED CELL DISTRIBUTION WIDTH 17.2 % (11.6-14.6)
[2018-08-20 07:01] LABS: CREATINE KINASE MB FRACTION 3.7 ng/mL (0.5-3.6); PHOSPHORUS 3.3 mg/dL (2.5-4.9)
[2018-08-20 07:58] VITALS: BP 129/82
[2018-08-20] MEDS: FUROSEMIDE 40MG/4ML VIAL IVP SCH (09:21)
[2018-08-20] MEDS: AMLODIPINE 10MG TABLET PO SCH (09:21)
[2018-08-20] MEDS: ENOXAPARIN 30MG/0.3ML SYR SUBCUT SCH (09:22)
[2018-08-20 12:11] VITALS: BP 130/97
[2018-08-20 13:56] LABS: PLATELET ESTIMATE NORMAL
[2018-08-20 15:44] VITALS: BP 130/97
[2018-08-21] MEDS ORDERED: ENOXAPARIN 40MG/0.4ML SYR SUBCUT SCH (09:00)
== END 2018-08-20 16:00 | disposition home or self-care (01) | DRG 133 ==
LOC: ER 10:50 → 7WST 13:29 → EDBEDREQ 13:31 → ENRESERV 14:17
PROVIDERS: ADMIT Family Medicine; ATTEND Family Medicine
DX: J96.90 Respiratory failure, unspecified, unspecified whether with hypoxia or hypercapnia (principal); E43 Unspecified severe protein-calorie malnutrition; E87.3 Alkalosis; N17.9 Acute kidney failure, unspecified; N18.4 Chronic kidney disease, stage 4 (severe); I13.0 Hypertensive heart and chronic kidney disease with heart failure and stage 1 through stage 4 chronic kidney disease, or unspecified chronic kidney disease; J44.1 Chronic obstructive pulmonary disease with (acute) exacerbation; I50.9 Heart failure, unspecified; E44.1 Mild protein-calorie malnutrition; D72.829 Elevated white blood cell count, unspecified; E78.5 Hyperlipidemia, unspecified; R80.9 Proteinuria, unspecified; F15.129 Other stimulant abuse with intoxication, unspecified; R74.8 Abnormal levels of other serum enzymes; F17.210 Nicotine dependence, cigarettes, uncomplicated; Z82.49 Family history of ischemic heart disease and other diseases of the circulatory system; Z59.0 Homelessness; Z68.25 Body mass index [BMI] 25.0-25.9, adult; Z71.6 Tobacco abuse counseling
CPT/HCPCS: 36415; 36600; 71045; 76770; 80048; 80061; 80305; 82375; 82550; 82553; 82805; 83036; 83735; 83880; 84100; 84153; 84439; 84443; 84484; 85379; 93005; 93306; 93970; 94640; 96374; 96375; 99285; G0482; J1200; J1650; J1940; J2920; J2930; J7620; G0103

== ENCOUNTER 2018-10-18 23:21 | Inpatient (IN) | payer SELFPAY ==
[~2018-10-18] VITALS: Ht 182.9 cm; Wt 90.7 kg
[~2018-10-18 23:21] MED LIST changes: +FURO-151 PO; +SPIR25TA PO
[2018-10-19] MEDS ORDERED: FUROSEMIDE 40MG/4ML VIAL IV ONE (00:45)
[2018-10-19] MEDS ORDERED: PIPERACILLIN/TAZ 3.375G PREMIX 50 ML IV ONE (00:45)
[2018-10-19] MEDS ORDERED: VANCOMYCIN 1 G PREMIX 200 ML IV SCH (00:45)
[2018-10-19] MEDS ORDERED: ASPIRIN 81MG TABLET PO ONE (00:45)
[2018-10-19] MEDS ORDERED: NITROGLYCERIN OINT 1GM/INCH UDPKT TD ONE (00:45)
[2018-10-19 00:58] LABS: BASOPHILS % 0.4 % (0.0-2.0); EOSINOPHILS % 0.2 % (0.0-5.0); HEMATOCRIT. 41.4 % (42.0-52.0); HEMOGLOBIN. 12.6 g/dL (14.0-18.0); LYMPHOCYTES % 11.2 % (20.0-50.0); MEAN CORPUSCULAR HEMOGLOBIN 25.8 pg (28.0-32.0); MEAN CORPUSCULAR VOLUME 84.5 fL (80.0-94.0); MEAN PLATELET VOLUME 9.3 fl (7.4-10.4); MONOCYTES % 4.8 % (2.0-8.0); NEUTROPHILS % 83.4 % (40.0-76.0); PLATELET 180 x1000/uL (130-400); RED BLOOD CELL COUNT 4.89 mill/uL (4.7-6.1); RED CELL DISTRIBUTION WIDTH 18.8 % (11.6-14.6)
[2018-10-19 01:03] LABS: CHLORIDE 110 mEq/L (98-107)
[2018-10-19 01:04] LABS: INR 1.1; PROTHROMBIN TIME 11.1 sec (9.1-11.1)
[2018-10-19 01:47] LABS: CLARITY URINE CLEAR (CLEAR); COLOR URINE YELLOW (YELLOW); KETONES URINE NEGATIVE (NEGATIVE); LEUKOCYTE ESTERASE URINE NEGATIVE (NEGATIVE); NITRITE URINE NEGATIVE (NEGATIVE); OCCULT BLOOD URINE NEGATIVE (NEGATIVE); PH URINE 5.5 (4.5-8.0); PROTEIN URINE 2+ (NEGATIVE); SPECIFIC GRAVITY URINE 1.011 (1.005-1.030); UROBILINOGEN URINE 0.2 E.U./dL (0.2-1.0)
[2018-10-19] MEDS: ALBUTEROL (0.083%) 2.5MG/3ML NEB HHN SCH (03:00)
[2018-10-19] MEDS ORDERED: IPRATROPIUM/ALBUTEROL 0.5-3(2.5)MG/3ML NEB INH PRN (08:15)
[2018-10-19] MEDS ORDERED: NA PHOS,M-B/NA PHOS,DI-BA ENEMA 118ML PR PRN (08:15)
[2018-10-19] MEDS ORDERED: MAGNESIUM/ALUMINUM HYDROXIDE/SIMETHICONE 30ML UDC PO PRN (08:15)
[2018-10-19] MEDS ORDERED: ACETAMINOPHEN 325MG TABLET PO PRN (08:15)
[2018-10-19] MEDS ORDERED: ONDANSETRON HCL 4MG/2ML INJ IV PRN (08:15)
[2018-10-19] MEDS ORDERED: ACETAMINOPHEN 650MG SUPP PR PRN (08:15)
[2018-10-19] MEDS ORDERED: ACETAMINOPHEN 650MG/20.3ML UDC GT PRN (08:15)
[2018-10-19] MEDS ORDERED: HYDROCODONE/ACETAMINOPHEN 5/325MG TABLET PO PRN (08:15)
[2018-10-19] MEDS ORDERED: DIPHENHYDRAMINE 50MG/ML VIAL IV PRN (08:15)
[2018-10-19 08:46] LABS: BASOPHILS % 1.1 % (0.0-2.0); EOSINOPHILS % 0.6 % (0.0-5.0); HEMATOCRIT. 37.7 % (42.0-52.0); HEMOGLOBIN. 11.9 g/dL (14.0-18.0); LYMPHOCYTES % 12.7 % (20.0-50.0); MEAN CORPUSCULAR HEMOGLOBIN 26.4 pg (28.0-32.0); MEAN PLATELET VOLUME 9.3 fl (7.4-10.4); NEUTROPHILS % 76.6 % (40.0-76.0); PLATELET 170 x1000/uL (130-400); RED BLOOD CELL COUNT 4.48 mill/uL (4.7-6.1); RED CELL DISTRIBUTION WIDTH 18.8 % (11.6-14.6)
[2018-10-19 08:50] LABS: CHLORIDE 109 mEq/L (98-107)
[2018-10-19 10:00] VITALS: BP 145/111
[2018-10-19 11:24] LABS: *BARBITURATES SCREEN URINE NEGATIVE (NEGATIVE)
[2018-10-19 11:25] LABS: *BENZODIAZEPINES SCREEN URINE NEGATIVE (NEGATIVE); *COCAINE SCREEN URINE NEGATIVE (NEGATIVE); CANNABINOID URINE SCREEN NEGATIVE (NEGATIVE); METHADONE URINE SCREEN NEGATIVE (NEGATIVE); OPIATES URINE SCREEN NEGATIVE (NEGATIVE); PHENCYCLIDINE URINE SCREEN NEGATIVE (NEGATIVE)
[2018-10-19] MEDS: FUROSEMIDE 40MG/4ML VIAL IV SCH ×2 (11:28→17:33)
[2018-10-19] MEDS: ENOXAPARIN 30MG/0.3ML SYR SUBCUT SCH (11:29)
[2018-10-19 11:36] LABS: *AMPHETAMINES SCREEN URINE PRESUMTIVE POSITIVE (NEGATIVE)
[2018-10-19 12:00] VITALS: BP 153/98
[2018-10-19 12:57] VITALS: BP 145/111
[2018-10-19] MEDS ORDERED: VANCOMYCIN 500 MG PREMIX 100 ML IV NR (13:00)
[2018-10-19] MEDS: SODIUM CHLORIDE 0.9% INJ 3ML FLUSH IVF SCH ×2 (13:04→21:15)
[2018-10-19 16:09] VITALS: BP 153/115
[2018-10-19 17:23] LABS: CREATINE KINASE MB FRACTION 5.5 ng/mL (0.5-3.6)
[2018-10-19 17:34] LABS: T4 FREE 1.03 ng/dL (0.76-1.46)
[2018-10-19 20:00] VITALS: BP 151/102
[2018-10-19 21:00] VITALS: BP 145/85
[2018-10-19] MEDS ORDERED: VANCOMYCIN 750 MG PREMIX 150 ML IV SCH (22:00)
[2018-10-19 23:07] LABS: CREATINE KINASE MB FRACTION 4.4 ng/mL (0.5-3.6)
[2018-10-20] VITALS (7 sets, daily range): BP systolic 135–159; BP diastolic 80–117
[2018-10-20] MEDS: CLONIDINE 0.1MG TABLET PO PRN ×3 (01:39→16:50)
[2018-10-20] MEDS: SODIUM CHLORIDE 0.9% INJ 3ML FLUSH IVF SCH ×2 (06:12→13:49)
[2018-10-20] MEDS: FUROSEMIDE 40MG/4ML VIAL IV SCH ×2 (06:12→16:50)
[2018-10-20] MEDS ORDERED: AMLODIPINE 5MG TABLET PO NR (06:55)
[2018-10-20 07:02] LABS: BASOPHILS % 1.3 % (0.0-2.0); EOSINOPHILS % 1.7 % (0.0-5.0); HEMATOCRIT. 36.7 % (42.0-52.0); HEMOGLOBIN. 11.6 g/dL (14.0-18.0); LYMPHOCYTES % 14.1 % (20.0-50.0); MEAN CORPUSCULAR HEMOGLOBIN 26.4 pg (28.0-32.0); MEAN CORPUSCULAR VOLUME 83.6 fL (80.0-94.0); MEAN PLATELET VOLUME 9.8 fl (7.4-10.4); MONOCYTES % 7.9 % (2.0-8.0); PLATELET 158 x1000/uL (130-400); RED BLOOD CELL COUNT 4.39 mill/uL (4.7-6.1); RED CELL DISTRIBUTION WIDTH 18.6 % (11.6-14.6)
[2018-10-20 07:44] LABS: CHLORIDE 107 mEq/L (98-107)
[2018-10-20 07:54] LABS: LDL CHOLESTEROL 77 mg/dL (5-100)
[2018-10-20 07:55] LABS: HDL CHOLESTEROL 38 mg/dL (40-59)
[2018-10-20] MEDS: ENOXAPARIN 30MG/0.3ML SYR SUBCUT SCH (11:24)
[2018-10-20] MEDS ORDERED: VANCOMYCIN 1500MG in DEXTROSE 5% WATER 250ML IV NR (12:00)
[2018-10-20] MEDS: ALBUTEROL (0.083%) 2.5MG/3ML NEB HHN SCH ×2 (14:53→20:24)
[2018-10-21 00:11] VITALS: BP 120/77
[2018-10-21 04:00] VITALS: BP 145/87
[2018-10-21] MEDS: SODIUM CHLORIDE 0.9% INJ 3ML FLUSH IVF SCH ×3 (05:25→14:08)
[2018-10-21] MEDS: FUROSEMIDE 40MG/4ML VIAL IV SCH (05:26)
[2018-10-21] MEDS: ALBUTEROL (0.083%) 2.5MG/3ML NEB HHN SCH (07:47)
[2018-10-21 08:00] VITALS: BP 131/87
[2018-10-21 12:00] VITALS: BP 142/78
[2018-10-21] MEDS: ENOXAPARIN 30MG/0.3ML SYR SUBCUT SCH (13:49)
[2018-10-21 14:27] VITALS: BP 131/87
[2018-10-21] MEDS ORDERED: VANCOMYCIN 1500MG in DEXTROSE 5% WATER 250ML IV NR (15:00)
== END 2018-10-21 17:07 | disposition home or self-care (01) | DRG 194 ==
LOC: ER 23:21 → 7WST 10-19 01:39 → EDBEDREQ 10-19 01:41 → EDBEDREQTM 10-19 01:41 → ENRESERV 10-19 08:55
PROVIDERS: ADMIT Family Medicine; ATTEND Family Medicine
DX: I13.0 Hypertensive heart and chronic kidney disease with heart failure and stage 1 through stage 4 chronic kidney disease, or unspecified chronic kidney disease (principal); E11.22 Type 2 diabetes mellitus with diabetic chronic kidney disease; E44.0 Moderate protein-calorie malnutrition; I42.9 Cardiomyopathy, unspecified; L03.115 Cellulitis of right lower limb; I50.33 Acute on chronic diastolic (congestive) heart failure; L03.116 Cellulitis of left lower limb; F15.10 Other stimulant abuse, uncomplicated; F17.210 Nicotine dependence, cigarettes, uncomplicated; J44.9 Chronic obstructive pulmonary disease, unspecified; K46.9 Unspecified abdominal hernia without obstruction or gangrene; N18.9 Chronic kidney disease, unspecified; Z59.0 Homelessness; Z79.899 Other long term (current) drug therapy; Z68.27 Body mass index [BMI] 27.0-27.9, adult
CPT/HCPCS: 36415; 71045; 78580; 80061; 80202; 80305; 82550; 82553; 83036; 83605; 83880; 84439; 84443; 84484; 85379; 93005; 93306; 93970; 94640; 96365; 96366; 99291; J1650; J1940; J2543; J3370; J7040; J7060; J7611

== ENCOUNTER 2018-11-04 09:20 | Inpatient (IN) | payer MEDICAID ==
[~2018-11-04] VITALS: Ht 184.2 cm; Wt 77.2 kg
[2018-11-04] MEDS ORDERED: FUROSEMIDE 40MG/4ML VIAL IV ONE (10:45)
[2018-11-04] MEDS ORDERED: NITROGLYCERIN OINT 1GM/INCH UDPKT TD ONE (10:45)
[2018-11-04] MEDS ORDERED: ASPIRIN 81MG TABLET PO ONE (10:45)
[2018-11-04 11:42] LABS: HEMATOCRIT. 38.9 % (42.0-52.0); HEMOGLOBIN. 12.1 g/dL (14.0-18.0); MEAN CORPUSCULAR HEMOGLOBIN 26.2 pg (28.0-32.0); MEAN CORPUSCULAR VOLUME 84.2 fL (80.0-94.0); MEAN PLATELET VOLUME 9.7 fl (7.4-10.4); PLATELET 160 x1000/uL (130-400); RED BLOOD CELL COUNT 4.63 mill/uL (4.7-6.1); RED CELL DISTRIBUTION WIDTH 19.8 % (11.6-14.6)
[2018-11-04 11:50] LABS: CHLORIDE 110 mEq/L (98-107)
[2018-11-04 11:56] LABS: INR 1.1; PARTIAL THROMBOPLASTIN TIME 26.6 sec (23.4-31.0); PROTHROMBIN TIME 10.8 sec (9.1-11.1)
[2018-11-04 12:32] LABS: PLATELET ESTIMATE NORMAL
[2018-11-04] MEDS ORDERED: CLONIDINE 0.1MG TABLET PO PRN (14:15)
[2018-11-04] MEDS ORDERED: HYDROCODONE/ACETAMINOPHEN 5/325MG TABLET PO PRN (14:15)
[2018-11-04] MEDS ORDERED: ONDANSETRON HCL 4MG/2ML INJ IV PRN (14:15)
[2018-11-04] MEDS ORDERED: ACETAMINOPHEN 325MG TABLET PO PRN (14:15)
[2018-11-04] MEDS ORDERED: DOCUSATE SODIUM 100MG CAPSULE PO PRN (14:15)
[2018-11-04] MEDS ORDERED: AMLODIPINE 2.5MG TABLET PO NR (20:34)
[2018-11-04] MEDS ORDERED: FUROSEMIDE 40MG/4ML VIAL IV NR (20:36)
[2018-11-04] MEDS ORDERED: SPIRONOLACTONE 25MG TABLET PO SCH (20:38)
[2018-11-04 21:30] VITALS: BP 155/110
[2018-11-05] VITALS: BP 155/89
[2018-11-05 04:00] VITALS: BP 150/85
[2018-11-05 06:07] LABS: BASOPHILS % 1.1 % (0.0-2.0); EOSINOPHILS % 1.3 % (0.0-5.0); HEMATOCRIT. 35.4 % (42.0-52.0); HEMOGLOBIN. 11.3 g/dL (14.0-18.0); LYMPHOCYTES % 16.3 % (20.0-50.0); MEAN CORPUSCULAR HEMOGLOBIN 26.4 pg (28.0-32.0); MEAN CORPUSCULAR VOLUME 82.8 fL (80.0-94.0); MEAN PLATELET VOLUME 9.4 fl (7.4-10.4); MONOCYTES % 8.3 % (2.0-8.0); PLATELET 150 x1000/uL (130-400); RED BLOOD CELL COUNT 4.28 mill/uL (4.7-6.1); RED CELL DISTRIBUTION WIDTH 19.9 % (11.6-14.6)
[2018-11-05 06:22] LABS: CLARITY URINE CLEAR (CLEAR); COLOR URINE YELLOW (YELLOW); KETONES URINE NEGATIVE (NEGATIVE); LEUKOCYTE ESTERASE URINE NEGATIVE (NEGATIVE); NITRITE URINE NEGATIVE (NEGATIVE); OCCULT BLOOD URINE NEGATIVE (NEGATIVE); PROTEIN URINE 1+ (NEGATIVE); SPECIFIC GRAVITY URINE 1.013 (1.005-1.030); UROBILINOGEN URINE 0.2 E.U./dL (0.2-1.0)
[2018-11-05 06:40] LABS: *AMPHETAMINES SCREEN URINE PRESUMTIVE POSITIVE (NEGATIVE); *BARBITURATES SCREEN URINE NEGATIVE (NEGATIVE); *BENZODIAZEPINES SCREEN URINE NEGATIVE (NEGATIVE); *COCAINE SCREEN URINE NEGATIVE (NEGATIVE); CANNABINOID URINE SCREEN NEGATIVE (NEGATIVE); METHADONE URINE SCREEN NEGATIVE (NEGATIVE); OPIATES URINE SCREEN NEGATIVE (NEGATIVE); PHENCYCLIDINE URINE SCREEN NEGATIVE (NEGATIVE)
[2018-11-05 08:00] VITALS: BP 164/100
[2018-11-05] MEDS: SPIRONOLACTONE 25MG TABLET PO SCH (08:16)
[2018-11-05] MEDS: FUROSEMIDE 40MG/4ML VIAL IV SCH ×2 (08:18→16:52)
[2018-11-05] MEDS ORDERED: AMLODIPINE 2.5MG TABLET PO SCH (09:00)
[2018-11-05 12:00] VITALS: BP 144/81
[2018-11-05] MEDS: CLONIDINE 0.1MG TABLET PO SCH ×2 (14:26→21:35)
[2018-11-05] MEDS: HEPARIN 5000 UNITS/ML VIAL SUBCUT SCH ×2 (14:28→20:22)
[2018-11-05 16:41] VITALS: BP 146/91
[2018-11-05 19:55] VITALS: BP 155/97
[2018-11-05] MEDS: AMLODIPINE 5MG TABLET PO SCH (20:23)
[2018-11-06] VITALS: BP 149/89
[2018-11-06 04:00] VITALS: BP 145/85
[2018-11-06 06:18] LABS: CHLORIDE 107 mEq/L (98-107)
[2018-11-06] MEDS: FUROSEMIDE 40MG/4ML VIAL IV SCH ×2 (06:22→18:57)
[2018-11-06 06:25] LABS: HEMOGLOBIN. 11.5 g/dL (14.0-18.0); MEAN CORPUSCULAR HEMOGLOBIN 25.6 pg (28.0-32.0); MEAN CORPUSCULAR VOLUME 82.7 fL (80.0-94.0); MEAN PLATELET VOLUME 9.7 fl (7.4-10.4); PLATELET 151 x1000/uL (130-400); RED BLOOD CELL COUNT 4.47 mill/uL (4.7-6.1); RED CELL DISTRIBUTION WIDTH 19.6 % (11.6-14.6)
[2018-11-06] MEDS: SPIRONOLACTONE 25MG TABLET PO SCH (08:40)
[2018-11-06] MEDS: AMLODIPINE 5MG TABLET PO SCH ×2 (08:40→21:36)
[2018-11-06] MEDS: CLONIDINE 0.1MG TABLET PO SCH ×2 (08:41→21:00)
[2018-11-06] MEDS: HEPARIN 5000 UNITS/ML VIAL SUBCUT SCH ×2 (08:43→21:54)
[2018-11-06] MEDS ORDERED: FUROSEMIDE 40MG/4ML VIAL IVP NR (13:45)
[2018-11-06 15:19] LABS: PLATELET ESTIMATE NORMAL
[2018-11-07] VITALS: BP 141/93
[2018-11-07 04:00] VITALS: BP 141/93
[2018-11-07] MEDS: FUROSEMIDE 40MG/4ML VIAL IV SCH ×2 (06:29→19:11)
[2018-11-07 08:00] VITALS: BP 146/98
[2018-11-07] MEDS: AMLODIPINE 5MG TABLET PO SCH ×2 (09:27→21:00)
[2018-11-07] MEDS: CLONIDINE 0.1MG TABLET PO SCH ×2 (09:27→21:00)
[2018-11-07] MEDS: SPIRONOLACTONE 25MG TABLET PO SCH (09:27)
[2018-11-07] MEDS: HEPARIN 5000 UNITS/ML VIAL SUBCUT SCH ×2 (09:28→21:46)
[2018-11-07 12:00] VITALS: BP 137/95
[2018-11-07] MEDS: IPRATROPIUM/ALBUTEROL 0.5-3(2.5)MG/3ML NEB INH PRN ×2 (14:17→21:11)
[2018-11-07 16:00] VITALS: BP 147/100
[2018-11-07 20:00] VITALS: BP 115/58
[2018-11-08] VITALS: BP 129/78
[2018-11-08 04:00] VITALS: BP 125/79
[2018-11-08] MEDS: FUROSEMIDE 40MG/4ML VIAL IV SCH ×2 (06:43→16:39)
[2018-11-08 07:00] LABS: BASOPHILS % 1.2 % (0.0-2.0); EOSINOPHILS % 1.3 % (0.0-5.0); HEMATOCRIT. 41.7 % (42.0-52.0); HEMOGLOBIN. 13.2 g/dL (14.0-18.0); LYMPHOCYTES % 17.7 % (20.0-50.0); MEAN CORPUSCULAR HEMOGLOBIN 26.2 pg (28.0-32.0); MEAN CORPUSCULAR VOLUME 82.4 fL (80.0-94.0); MONOCYTES % 8.7 % (2.0-8.0); NEUTROPHILS % 71.1 % (40.0-76.0); PLATELET 163 x1000/uL (130-400); RED BLOOD CELL COUNT 5.06 mill/uL (4.7-6.1); RED CELL DISTRIBUTION WIDTH 19.6 % (11.6-14.6)
[2018-11-08 07:57] LABS: PHOSPHORUS 3.6 mg/dL (2.5-4.9)
[2018-11-08 08:00] VITALS: BP 141/95
[2018-11-08] MEDS: AMLODIPINE 5MG TABLET PO SCH (09:13)
[2018-11-08] MEDS: CLONIDINE 0.1MG TABLET PO SCH (09:13)
[2018-11-08] MEDS: HEPARIN 5000 UNITS/ML VIAL SUBCUT SCH (09:14)
[2018-11-08] MEDS: SPIRONOLACTONE 25MG TABLET PO SCH (09:14)
[2018-11-08 12:00] VITALS: BP 109/79
[2018-11-08] MEDS ORDERED: AMLO5TAB88 PO (13:24)
[2018-11-08 16:00] VITALS: BP 121/78
[2018-11-08 17:18] VITALS: BP 121/78
== END 2018-11-08 19:10 | disposition home or self-care (01) | DRG 812 ==
LOC: ER 09:20 → 7WST 14:43 → EDBEDREQ 14:46 → EDBEDREQTM 14:46 → ENRESERV 20:12 → 7WST 23:58
PROVIDERS: ADMIT Internal Medicine; ATTEND Internal Medicine
DX: T43.621A Poisoning by amphetamines, accidental (unintentional), initial encounter (principal); J96.91 Respiratory failure, unspecified with hypoxia; I47.2 Ventricular tachycardia; E43 Unspecified severe protein-calorie malnutrition; N18.4 Chronic kidney disease, stage 4 (severe); N17.9 Acute kidney failure, unspecified; I07.1 Rheumatic tricuspid insufficiency; I13.0 Hypertensive heart and chronic kidney disease with heart failure and stage 1 through stage 4 chronic kidney disease, or unspecified chronic kidney disease; D64.9 Anemia, unspecified; I27.20 Pulmonary hypertension, unspecified; I50.9 Heart failure, unspecified; R74.0 Nonspecific elevation of levels of transaminase and lactic acid dehydrogenase [LDH]; F17.210 Nicotine dependence, cigarettes, uncomplicated; J44.9 Chronic obstructive pulmonary disease, unspecified; F15.129 Other stimulant abuse with intoxication, unspecified; I42.0 Dilated cardiomyopathy; Z82.49 Family history of ischemic heart disease and other diseases of the circulatory system; Z59.0 Homelessness; Z79.899 Other long term (current) drug therapy; Z68.22 Body mass index [BMI] 22.0-22.9, adult; Z79.51 Long term (current) use of inhaled steroids; Y92.89 Other specified places as the place of occurrence of the external cause
CPT/HCPCS: 36415; 71045; 76770; 78582; 80048; 80061; 80305; 82550; 82553; 83735; 83880; 84100; 84443; 84484; 85379; 93005; 93970; 94640; 99285; A9558; J1644; J1940; J7620

== ENCOUNTER 2018-12-08 06:01 | Inpatient (IN) | payer MEDICAID ==
[~2018-12-08] VITALS: Ht 188 cm; Wt 98.0 kg
[~2018-12-08 06:01] MED LIST changes: +AMLO5TAB88 PO
[2018-12-08] MEDS ORDERED: FUROSEMIDE 100MG/10ML VIAL IVP ONE (09:00)
[2018-12-08 09:11] LABS: HEMATOCRIT. 39.4 % (42.0-52.0); HEMOGLOBIN. 12.1 g/dL (14.0-18.0); MEAN CORPUSCULAR HEMOGLOBIN 25.4 pg (28.0-32.0); MEAN CORPUSCULAR VOLUME 82.8 fL (80.0-94.0); MEAN PLATELET VOLUME 9.5 fl (7.4-10.4); PLATELET 152 x1000/uL (130-400); RED BLOOD CELL COUNT 4.76 mill/uL (4.7-6.1); RED CELL DISTRIBUTION WIDTH 20.6 % (11.6-14.6)
[2018-12-08 09:17] LABS: CHLORIDE 112 mEq/L (98-107)
[2018-12-08 09:54] LABS: PLATELET ESTIMATE NORMAL
[2018-12-08 11:19] LABS: HEMATOCRIT. 37.2 % (42.0-52.0); HEMOGLOBIN. 11.5 g/dL (14.0-18.0); MEAN CORPUSCULAR HEMOGLOBIN 25.6 pg (28.0-32.0); MEAN CORPUSCULAR VOLUME 83.2 fL (80.0-94.0); MEAN PLATELET VOLUME 9.7 fl (7.4-10.4); PLATELET 157 x1000/uL (130-400); RED BLOOD CELL COUNT 4.47 mill/uL (4.7-6.1); RED CELL DISTRIBUTION WIDTH 20.6 % (11.6-14.6)
[2018-12-08 11:25] LABS: CHLORIDE 112 mEq/L (98-107)
[2018-12-08] MEDS ORDERED: LABETALOL HCL 20MG/4ML CARPUJECT IV ONE (11:45)
[2018-12-08 11:56] LABS: NUCLEATED RED BLOOD CELLS 2 /100 WBC
[2018-12-08 11:59] LABS: PLATELET ESTIMATE NORMAL
[2018-12-08] MEDS ORDERED: HYDROCODONE/ACETAMINOPHEN 5/325MG TABLET PO PRN (13:15)
[2018-12-08] MEDS ORDERED: IPRATROPIUM/ALBUTEROL 0.5-3(2.5)MG/3ML NEB HHN PRN (13:15)
[2018-12-08] MEDS ORDERED: DOCUSATE SODIUM 100MG CAPSULE PO PRN (13:15)
[2018-12-08] MEDS ORDERED: ACETAMINOPHEN 325MG TABLET PO PRN (13:15)
[2018-12-08] MEDS: CLONIDINE 0.1MG TABLET PO PRN (18:51)
[2018-12-09] MEDS: CLONIDINE 0.1MG TABLET PO PRN (01:22)
[2018-12-09 03:09] VITALS: BP 171/122
[2018-12-09 04:00] VITALS: BP 152/96
[2018-12-09 06:14] LABS: CHLORIDE 110 mEq/L (98-107)
[2018-12-09 06:18] LABS: BASOPHILS % 0.9 % (0.0-2.0); EOSINOPHILS % 1.5 % (0.0-5.0); HEMATOCRIT. 36.8 % (42.0-52.0); HEMOGLOBIN. 11.4 g/dL (14.0-18.0); LYMPHOCYTES % 12.6 % (20.0-50.0); MEAN CORPUSCULAR HEMOGLOBIN 25.6 pg (28.0-32.0); MEAN CORPUSCULAR VOLUME 82.5 fL (80.0-94.0); MEAN PLATELET VOLUME 9.5 fl (7.4-10.4); MONOCYTES % 8.9 % (2.0-8.0); NEUTROPHILS % 76.1 % (40.0-76.0); PLATELET 141 x1000/uL (130-400); RED BLOOD CELL COUNT 4.47 mill/uL (4.7-6.1); RED CELL DISTRIBUTION WIDTH 20.7 % (11.6-14.6)
[2018-12-09 06:23] LABS: LDL CHOLESTEROL 77 mg/dL (5-100)
[2018-12-09 06:25] LABS: HDL CHOLESTEROL 28 mg/dL (40-59)
[2018-12-09 08:00] VITALS: BP 146/114
[2018-12-09] MEDS: FUROSEMIDE 40MG/4ML VIAL IV SCH ×2 (08:55→16:56)
[2018-12-09] MEDS: SPIRONOLACTONE 50MG TABLET PO SCH (08:56)
[2018-12-09] MEDS: AMLODIPINE 10MG TABLET PO SCH (08:56)
[2018-12-09] MEDS: ENOXAPARIN 30MG/0.3ML SYR SUBCUT SCH (08:56)
[2018-12-09] MEDS: ASPIRIN 81MG EC TABLET PO SCH (08:56)
[2018-12-09] MEDS ORDERED: INFLUENZA VIRUS VACCINE(AFLURIA) 0.5ML SYR IM ONE (10:00)
[2018-12-09 12:00] VITALS: BP 137/86
[2018-12-09] MEDS ORDERED: ONDANSETRON HCL 4MG/2ML INJ IV PRN (15:30)
[2018-12-09 16:00] VITALS: BP 131/89
[2018-12-09 20:00] VITALS: BP 128/86
[2018-12-10] VITALS: BP 132/82
[2018-12-10 04:00] VITALS: BP 136/89
[2018-12-10 08:05] VITALS: BP 123/89
[2018-12-10] MEDS: FUROSEMIDE 40MG/4ML VIAL IV SCH (09:07)
[2018-12-10] MEDS: ASPIRIN 81MG EC TABLET PO SCH (09:07)
[2018-12-10] MEDS: SPIRONOLACTONE 50MG TABLET PO SCH (09:08)
[2018-12-10] MEDS: ENOXAPARIN 30MG/0.3ML SYR SUBCUT SCH (09:08)
[2018-12-10] MEDS: AMLODIPINE 10MG TABLET PO SCH (09:08)
[2018-12-10 12:00] VITALS: BP 130/79
[2018-12-10 16:00] VITALS: BP 125/80
[2018-12-10 20:27] VITALS: BP 143/86
[2018-12-11 00:30] VITALS: BP 132/70
[2018-12-11 04:10] VITALS: BP 128/69
[2018-12-11 08:00] VITALS: BP 134/83
[2018-12-11] MEDS: AMLODIPINE 10MG TABLET PO SCH (08:35)
[2018-12-11] MEDS: ASPIRIN 81MG EC TABLET PO SCH (08:35)
[2018-12-11] MEDS: SPIRONOLACTONE 50MG TABLET PO SCH (08:35)
[2018-12-11] MEDS: ENOXAPARIN 30MG/0.3ML SYR SUBCUT SCH (08:36)
[2018-12-11] MEDS ORDERED: FUROSEMIDE 40MG TABLET PO SCH (09:00)
[2018-12-11] MEDS ORDERED: IODIXANOL 320MG/ML 100 ML BOTTLE IV ONE (11:05)
[2018-12-11] MEDS ORDERED: LIDOCAINE HCL 1% 20ML VIAL (Pyxis) INJ ONE (11:06)
[2018-12-11 11:57] VITALS: BP 123/67
[2018-12-11 12:00] VITALS: BP 123/67
== END 2018-12-11 14:15 | disposition home or self-care (01) | DRG 194 ==
LOC: ER 06:01 → 7WST 11:13 → EDBEDREQSVC 11:18 → EDBEDREQTM 11:18 → EDBEDREQ 11:18 → EDBEDREQSVC 11:32 → EDBEDREQTM 11:32 → ENRESERV 12-09 00:54
PROVIDERS: ADMIT Hospitalist; ATTEND Hospitalist
DX: I13.0 Hypertensive heart and chronic kidney disease with heart failure and stage 1 through stage 4 chronic kidney disease, or unspecified chronic kidney disease (principal); E87.8 Other disorders of electrolyte and fluid balance, not elsewhere classified; E44.1 Mild protein-calorie malnutrition; F17.210 Nicotine dependence, cigarettes, uncomplicated; J44.9 Chronic obstructive pulmonary disease, unspecified; I50.23 Acute on chronic systolic (congestive) heart failure; N18.9 Chronic kidney disease, unspecified
CPT/HCPCS: 36415; 71045; 80061; 83880; 84484; 93005; 93970; 96374; 96375; 99285; J1644; J1650; J1940; J2405; J3490; Q9967

== ENCOUNTER 2019-01-13 04:19 | Emergency (ER) | payer MEDICAID ==
[~2019-01-13] VITALS: Ht 188 cm; Wt 97.0 kg
[~2019-01-13 04:19] MED LIST changes: -FLUT1DIS3 IH; -NICO-682 TD; -SPIR25TA PO
[2019-01-13 04:33] VITALS: BP 151/101
== END 2019-01-13 14:49 | disposition left against medical advice (07) ==
LOC: ER 04:19
DX: Z53.21 Procedure and treatment not carried out due to patient leaving prior to being seen by health care provider (principal)

== ENCOUNTER 2019-01-14 07:15 | Emergency (ER) | payer MEDICAID ==
[~2019-01-14] VITALS: Ht 188 cm; Wt 95.0 kg
[2019-01-14 07:31] VITALS: BP 147/98
== END 2019-01-14 12:43 | disposition left against medical advice (07) ==
LOC: ER 07:15
DX: I50.9 Heart failure, unspecified (principal); Z53.21 Procedure and treatment not carried out due to patient leaving prior to being seen by health care provider

== ENCOUNTER 2019-08-02 11:36 | Emergency (ER) | payer MEDICAID ==
[~2019-08-02] VITALS: Ht 188 cm; Wt 90.0 kg
[~2019-08-02 11:36] MED LIST changes: +COR25 MT; -FURO-151 PO
[2019-08-02 12:37] LABS: CHLORIDE 110 mEq/L (98-107)
[2019-08-02 12:39] LABS: BASOPHILS % 0.8 % (0.0-2.0); EOSINOPHILS % 0.8 % (0.0-5.0); HEMATOCRIT. 33.7 % (42.0-52.0); HEMOGLOBIN. 10.6 g/dL (14.0-18.0); LYMPHOCYTES % 7.6 % (20.0-50.0); MEAN CORPUSCULAR HEMOGLOBIN 26.5 pg (28.0-32.0); MEAN CORPUSCULAR VOLUME 84.7 fL (80.0-94.0); MEAN PLATELET VOLUME 9.2 fl (7.4-10.4); MONOCYTES % 10.3 % (2.0-8.0); NEUTROPHILS % 80.5 % (40.0-76.0); PLATELET 148 x1000/uL (130-400); RED BLOOD CELL COUNT 3.98 mill/uL (4.7-6.1); RED CELL DISTRIBUTION WIDTH 18.7 % (11.6-14.6)
[2019-08-02 12:46] LABS: INR 1.1; PARTIAL THROMBOPLASTIN TIME 28.2 sec (23.4-31.0)
[2019-08-02] MEDS ORDERED: PIPERACILLIN/TAZ 3.375G PREMIX 50 ML IV ONE (13:30)
[2019-08-02] MEDS ORDERED: FUROSEMIDE 40MG/4ML VIAL IVP ONE (13:30)
[2019-08-02] MEDS ORDERED: VANCOMYCIN 1 G PREMIX 200 ML IV SCH (13:30)
[2019-08-02 16:01] VITALS: BP 115/68
== END 2019-08-02 17:30 | disposition home or self-care (01) ==
LOC: ER 12:02
DX: L03.116 Cellulitis of left lower limb (principal); L03.115 Cellulitis of right lower limb; R60.9 Edema, unspecified; I11.0 Hypertensive heart disease with heart failure; I50.9 Heart failure, unspecified; F17.200 Nicotine dependence, unspecified, uncomplicated
CPT/HCPCS: 36415; 71045; 80053; 83880; 84484; 85025; 85610; 85730; 93005; 93970; 96365; 96368; 96375; 99284; J1940; J2543; J3370

== ENCOUNTER 2019-09-14 06:58 | Inpatient (IN) | payer MEDICAID ==
[~2019-09-14] VITALS: Ht 188 cm; Wt 83.9 kg
[2019-09-14] MEDS ORDERED: METHYLPREDNISOLONE SOD SUCC 125 MG/2 ML VIAL IV STA (07:36)
[2019-09-14] MEDS ORDERED: ALBUTEROL (0.083%) 2.5MG/3ML NEB HHN STA (07:36)
[2019-09-14] MEDS ORDERED: IPRATROPIUM BROMIDE (0.02%) 0.5MG/2.5ML NEB HHN STA (07:36)
[2019-09-14] MEDS ORDERED: MAGNESIUM 2 G PREMIX 50 ML IV STA (07:36)
[2019-09-14] MEDS ORDERED: FUROSEMIDE 20MG/2ML VIAL IVP ONE (07:45)
[2019-09-14 08:25] LABS: BASOPHILS % 1.6 % (0.0-2.0); EOSINOPHILS % 0.3 % (0.0-5.0); HEMATOCRIT. 37.1 % (42.0-52.0); HEMOGLOBIN. 11.5 g/dL (14.0-18.0); LYMPHOCYTES % 11.2 % (20.0-50.0); MEAN CORPUSCULAR HEMOGLOBIN 26.2 pg (28.0-32.0); MEAN CORPUSCULAR VOLUME 84.2 fL (80.0-94.0); MONOCYTES % 10.7 % (2.0-8.0); NEUTROPHILS % 76.2 % (40.0-76.0); PLATELET 166 x1000/uL (130-400); RED BLOOD CELL COUNT 4.41 mill/uL (4.7-6.1)
[2019-09-14 08:30] LABS: CHLORIDE 108 mEq/L (98-107)
[2019-09-14 08:34] LABS: ETHANOL BLOOD < 10 mg/dL
[2019-09-14] MEDS ORDERED: HYDRALAZINE 20MG/ML VIAL IV ONE (08:45)
[2019-09-14] MEDS ORDERED: LORAZEPAM 2MG/ML CPJ IV ONE (08:45)
[2019-09-14] MEDS ORDERED: ONDANSETRON HCL 4MG/2ML INJ IV ONE (10:30)
[2019-09-14] MEDS ORDERED: MORPHINE SULFATE 4 MG/ML CPJ (NOT FOR IM USE) IV ONE (10:30)
[2019-09-14 12:00] VITALS: BP 157/117
[2019-09-14] MEDS ORDERED: MILRINONE 20MG-DEXT 5% PREMIX 100 ML IV SCH (12:15)
[2019-09-14] MEDS ORDERED: FENTANYL CITRATE/PF 50MCG/ML 2ML VIAL ONE (12:18)
[2019-09-14] MEDS ORDERED: PHENYLEPHRINE HCL 10 MG/ML 1ML (IV VIAL) IV ONE (12:21)
[2019-09-14] MEDS ORDERED: MIDAZOLAM HCL 2 MG/2 ML VIAL ONE (12:22)
[2019-09-14] MEDS ORDERED: ROCURONIUM BROMIDE 10MG/ML VIAL 5ML IV ONE (12:24)
[2019-09-14] MEDS ORDERED: SUCCINYLCHOLINE CHLORIDE 200MG/10ML IV ONE (12:24)
[2019-09-14 12:38] LABS: *BARBITURATES SCREEN URINE NEGATIVE (NEGATIVE); *COCAINE SCREEN URINE NEGATIVE (NEGATIVE); OPIATES URINE SCREEN NEGATIVE (NEGATIVE)
[2019-09-14 12:39] LABS: *AMPHETAMINES SCREEN URINE PRESUMTIVE POSITIVE (NEGATIVE); CANNABINOID URINE SCREEN NEGATIVE (NEGATIVE); PHENCYCLIDINE URINE SCREEN NEGATIVE (NEGATIVE)
[2019-09-14 12:45] LABS: METHADONE URINE SCREEN NEGATIVE (NEGATIVE)
[2019-09-14 12:47] LABS: *BENZODIAZEPINES SCREEN URINE NEGATIVE (NEGATIVE)
[2019-09-14 13:25] VITALS: BP 157/117
[2019-09-14 16:00] VITALS: BP 157/113
[2019-09-14] MEDS ORDERED: CLONIDINE 0.1MG TABLET PO PRN (16:00)
[2019-09-14] MEDS ORDERED: MAGNESIUM/ALUMINUM HYDROXIDE/SIMETHICONE 30ML UDC PO PRN (16:00)
[2019-09-14] MEDS ORDERED: LORAZEPAM 0.5MG TABLET PO PRN (16:00)
[2019-09-14] MEDS ORDERED: KETOROLAC 15MG/ML VIAL IV PRN (16:00)
[2019-09-14] MEDS ORDERED: ACETAMINOPHEN 325MG TABLET PO PRN (16:00)
[2019-09-14] MEDS ORDERED: GUAIFENESIN 200MG/10ML SUGAR FREE UDC PO PRN (16:00)
[2019-09-14] MEDS ORDERED: DOCUSATE SODIUM 100MG CAPSULE PO PRN (16:00)
[2019-09-14] MEDS ORDERED: NITROGLYCERIN 0.4MG TABLET SL SL PRN (16:00)
[2019-09-14] MEDS ORDERED: ONDANSETRON HCL 4MG/2ML INJ IV PRN (16:00)
[2019-09-14] MEDS ORDERED: IPRATROPIUM/ALBUTEROL 0.5-3(2.5)MG/3ML NEB NEB PRN (16:00)
[2019-09-14] MEDS ORDERED: METOLAZONE 10MG TABLET PO NR (16:30)
[2019-09-14] MEDS: FUROSEMIDE 40MG/4ML VIAL IVP SCH (16:42)
[2019-09-14] MEDS: DILTIAZEM HCL 300MG CAPSULE SR 24HR PO SCH (16:49)
[2019-09-14] MEDS ORDERED: ENOXAPARIN 30MG/0.3ML SYR SUBCUT SCH (17:00)
[2019-09-14 20:00] VITALS: BP 165/115
[2019-09-14] MEDS ORDERED: ZOLPIDEM TARTRATE 5MG TABLET PO PRN (21:00)
[2019-09-14] MEDS ORDERED: FAMOTIDINE 20MG TABLET PO SCH (21:00)
[2019-09-15] VITALS: BP 130/85
[2019-09-15 04:00] VITALS: BP 104/68
[2019-09-15] MEDS: FUROSEMIDE 40MG/4ML VIAL IVP SCH (06:55)
[2019-09-15 07:36] LABS: CHLORIDE 104 mEq/L (98-107)
[2019-09-15 08:00] VITALS: BP 145/96
[2019-09-15] MEDS: DILTIAZEM HCL 300MG CAPSULE SR 24HR PO SCH (09:32)
[2019-09-15 09:36] VITALS: BP 145/96
[2019-09-15] MEDS ORDERED: INFLUENZA VIRUS VACCINE(AFLURIA) 0.5ML SYR IM ONE (10:00)
== END 2019-09-15 11:19 | disposition home or self-care (01) | DRG 254 ==
LOC: ER 06:58 → 6WST 10:15 → ENRESERV 12:45
PROVIDERS: ADMIT Internal Medicine; ATTEND Internal Medicine
DX: K42.0 Umbilical hernia with obstruction, without gangrene (principal); N17.0 Acute kidney failure with tubular necrosis; I50.43 Acute on chronic combined systolic (congestive) and diastolic (congestive) heart failure; I13.0 Hypertensive heart and chronic kidney disease with heart failure and stage 1 through stage 4 chronic kidney disease, or unspecified chronic kidney disease; F15.10 Other stimulant abuse, uncomplicated; N18.9 Chronic kidney disease, unspecified; K43.6 Other and unspecified ventral hernia with obstruction, without gangrene; F17.210 Nicotine dependence, cigarettes, uncomplicated; I48.91 Unspecified atrial fibrillation; J44.9 Chronic obstructive pulmonary disease, unspecified; Z91.11 Patient's noncompliance with dietary regimen; Z91.14 Patient's other noncompliance with medication regimen; Z71.51 Drug abuse counseling and surveillance of drug abuser
CPT/HCPCS: 36415; 71045; 74176; 80305; 80320; 83036; 83880; 84484; 93005; 93970; 94644; 96365; 96366; 96375; 99285; J0330; J0360; J1650; J1940; J2060; J2250; J2260; J2370; J2930; J3010; J3475; J3490; J7611; G0480

== ENCOUNTER 2019-09-17 19:12 | Inpatient (IN) | payer MEDICAID ==
[~2019-09-17] VITALS: Ht 188 cm; Wt 94.4 kg
[~2019-09-17 19:12] MED LIST changes: -ALBU6.7H INH; +ALBU6.7H11 INH
[2019-09-17] MEDS ORDERED: HYDROCODONE/APAP 7.5/325MG 1 TAB TABLET PO ONE (19:45)
[2019-09-17] MEDS ORDERED: FUROSEMIDE 40MG TABLET PO ONE (19:45)
[2019-09-17 20:56] LABS: HEMATOCRIT. 38.8 % (42.0-52.0); HEMOGLOBIN. 12.4 g/dL (14.0-18.0); MEAN CORPUSCULAR HEMOGLOBIN 26.3 pg (28.0-32.0); MEAN CORPUSCULAR VOLUME 82.1 fL (80.0-94.0); MEAN PLATELET VOLUME 10.2 fl (7.4-10.4); RED BLOOD CELL COUNT 4.73 mill/uL (4.7-6.1); RED CELL DISTRIBUTION WIDTH 18.1 % (11.6-14.6)
[2019-09-17 20:59] LABS: PLATELET 34 x1000/uL (130-400)
[2019-09-17 21:28] LABS: CHLORIDE 101 mEq/L (98-107)
[2019-09-17] MEDS ORDERED: ONDANSETRON HCL 4MG/2ML INJ IV ONE (21:45)
[2019-09-17] MEDS ORDERED: MORPHINE SULFATE 4 MG/ML CPJ (NOT FOR IM USE) IV ONE (21:45)
[2019-09-17 21:53] LABS: ETHANOL BLOOD < 10 mg/dL
[2019-09-17] MEDS ORDERED: PIPERACILLIN/TAZ 3.375G PREMIX 50 ML IV ONE (22:15)
[2019-09-17] MEDS ORDERED: DEXTROSE 50% WATER 50ML SYRINGE IV ONE ×4 (22:15→23:15)
[2019-09-17] MEDS ORDERED: VANCOMYCIN 1 G PREMIX 200 ML IV SCH (22:15)
[2019-09-17 22:16] LABS: NUCLEATED RED BLOOD CELLS 2 /100 WBC
[2019-09-17 22:17] LABS: PLATELET ESTIMATE MARKEDLY DECREASED
[2019-09-17] MEDS ORDERED: DEXT 10% WATER 1,000 ML IV ONE (22:43)
[2019-09-17] MEDS ORDERED: GLUCAGON,HUMAN RECOMBINANT 1MG/VIAL IM ONE (22:45)
[2019-09-17] MEDS ORDERED: GLUCAGON,HUMAN RECOMBINANT 1MG/VIAL ONE (22:47)
[2019-09-17] MEDS ORDERED: OCTREOTIDE ACETATE 50 MCG/ML 1ML IV ONE (23:15)
[2019-09-18] VITALS (78 sets, daily range): BP systolic 59–151; BP diastolic 19–83
[2019-09-18 00:09] LABS: HEMATOCRIT. 34.8 % (42.0-52.0); HEMOGLOBIN. 11.1 g/dL (14.0-18.0); MEAN CORPUSCULAR HEMOGLOBIN 26.3 pg (28.0-32.0); MEAN CORPUSCULAR VOLUME 82.2 fL (80.0-94.0); MEAN PLATELET VOLUME 9.5 fl (7.4-10.4); RED BLOOD CELL COUNT 4.23 mill/uL (4.7-6.1); RED CELL DISTRIBUTION WIDTH 17.8 % (11.6-14.6)
[2019-09-18 00:14] LABS: PLATELET 21 x1000/uL (130-400)
[2019-09-18] MEDS: MORPHINE SULFATE 2 MG/ML CPJ (NOT FOR IM USE) IV PRN ×3 (01:07→21:01)
[2019-09-18 01:11] LABS: PLATELET ESTIMATE MARKEDLY DECREASED
[2019-09-18 01:42] LABS: *AMPHETAMINES SCREEN URINE PRESUMTIVE POSITIVE (NEGATIVE); *BARBITURATES SCREEN URINE NEGATIVE (NEGATIVE); *BENZODIAZEPINES SCREEN URINE NEGATIVE (NEGATIVE); *COCAINE SCREEN URINE NEGATIVE (NEGATIVE)
[2019-09-18 01:43] LABS: CANNABINOID URINE SCREEN NEGATIVE (NEGATIVE); METHADONE URINE SCREEN NEGATIVE (NEGATIVE); OPIATES URINE SCREEN PRESUMTIVE POSITIVE (NEGATIVE); PHENCYCLIDINE URINE SCREEN NEGATIVE (NEGATIVE)
[2019-09-18] MEDS ORDERED: POTASSIUM CHLORIDE 20MEQ TABLET SR PO SCH (03:15)
[2019-09-18] MEDS ORDERED: DEXT 10% WATER 1,000 ML IV SCH (03:15)
[2019-09-18] MEDS: BLOOD SUGAR DIAGNOSTIC STRIP TEST SCH ×7 (05:24→23:59)
[2019-09-18] MEDS ORDERED: PIPERACILLIN/TAZOBACTAM 3.375 G in DEXT 5% WATER 100 ML IV SCH (06:00)
[2019-09-18] MEDS ORDERED: VASOTEC (06:06)
[2019-09-18] MEDS ORDERED: CARDIZEM (06:06)
[2019-09-18 06:07] LABS: HEMATOCRIT 35.5 % (42.0-52.0); HEMOGLOBIN 11.4 g/dL (14.0-18.0); MEAN CORPUSCULAR HEMOGLOBIN 26.2 pg (28.0-32.0); MEAN CORPUSCULAR VOLUME 81.5 fL (80.0-94.0); RED BLOOD CELL COUNT 4.35 mill/uL (4.7-6.1); RED CELL DISTRIBUTION WIDTH 17.7 % (11.6-14.6)
[2019-09-18] MEDS: PIPERACILLIN/TAZOBACTAM 2.25 G in DEXTROSE 5% WATER 50 ML IV SCH ×3 (06:19→22:16)
[2019-09-18] MEDS ORDERED: PHENYLEPHRINE 40 MG in DEXT 5% WATER 246 ML IV PRN ×2 (07:00→08:00)
[2019-09-18] MEDS ORDERED: SODIUM CHLORIDE 0.9% 1,000 ML IV SCH (07:00)
[2019-09-18] MEDS: DILTIAZEM HCL 125 MG in DEXT 5% WATER 100 ML IV SCH ×2 (07:56→21:01)
[2019-09-18 11:08] LABS: PHOSPHORUS 8.4 mg/dL (2.5-4.9)
[2019-09-18 11:40] LABS: PLATELET 19 x1000/uL (130-400)
[2019-09-18] MEDS ORDERED: PHENYLEPHRINE 80 MG in DEXT 5% WATER 500 ML IV PRN (12:00)
[2019-09-18] MEDS ORDERED: ALBUMIN HUMAN 12.5G/250ML (5%) IV NR (12:15)
[2019-09-18] MEDS: DEXT 5%/0.9% NACL 1,000 ML IV SCH (12:44)
[2019-09-18] MEDS: DEXTROSE 50% WATER 50ML SYRINGE IV PRN ×2 (12:44→22:16)
[2019-09-18] MEDS: PHENYLEPHRINE 80 MG in DEXT 5% WATER 500 ML IV PRN (14:42)
[2019-09-18] MEDS ORDERED: AMIKACIN 500MG in SODIUM CHLORIDE 0.9% 100ML IV SCH (18:00)
[2019-09-19] VITALS (93 sets, daily range): BP systolic 26–115; BP diastolic 15–67
[2019-09-19] MEDS: MORPHINE SULFATE 2 MG/ML CPJ (NOT FOR IM USE) IV PRN (01:51)
[2019-09-19] MEDS: DEXT 5%/0.9% NACL 1,000 ML IV SCH (02:08)
[2019-09-19] MEDS: BLOOD SUGAR DIAGNOSTIC STRIP TEST SCH ×6 (04:51→23:29)
[2019-09-19] MEDS: PIPERACILLIN/TAZOBACTAM 2.25 G in DEXTROSE 5% WATER 50 ML IV SCH (05:02)
[2019-09-19 05:27] LABS: CHLORIDE 101 mEq/L (98-107)
[2019-09-19 05:32] LABS: PHOSPHORUS 7.7 mg/dL (2.5-4.9)
[2019-09-19 05:36] LABS: CREATINE KINASE 88 IU/L (39-308)
[2019-09-19 05:40] LABS: HEMATOCRIT. 32.5 % (42.0-52.0); HEMOGLOBIN. 10.5 g/dL (14.0-18.0); MEAN CORPUSCULAR HEMOGLOBIN 26.2 pg (28.0-32.0); MEAN CORPUSCULAR VOLUME 81.1 fL (80.0-94.0); MEAN PLATELET VOLUME 12.6 fl (7.4-10.4); RED BLOOD CELL COUNT 4.01 mill/uL (4.7-6.1); RED CELL DISTRIBUTION WIDTH 17.8 % (11.6-14.6)
[2019-09-19 06:02] LABS: HEPATITIS B SURFACE ANTIGEN NEGATIVE
[2019-09-19 06:32] LABS: HEPATITIS A AB IGM NEGATIVE (NEGATIVE)
[2019-09-19] MEDS ORDERED: DILTIAZEM HCL 125 MG in DEXT 5% WATER 100 ML IV PRN (07:15)
[2019-09-19] MEDS: DEXTROSE 50% WATER 50ML SYRINGE IV PRN (07:46)
[2019-09-19 08:03] LABS: PLATELET ESTIMATE MARKEDLY DECREASED
[2019-09-19 08:04] LABS: PLATELET 7 x1000/uL (130-400)
[2019-09-19] MEDS: PHENYLEPHRINE 80 MG in DEXT 5% WATER 500 ML IV PRN (08:22)
[2019-09-19] MEDS ORDERED: FILGRASTIM-TBO 480 MCG/0.8 ML SYRINGE SQ SCH (09:00)
[2019-09-19] MEDS: DILTIAZEM HCL 125 MG in DEXT 5% WATER 100 ML IV SCH (09:22)
[2019-09-19 09:36] LABS: BG BASE EXCESS -11.2 mmol/L (-2.0-2.0); BG DEOXYHEMOGLOBIN 3.1 % (0.0-5.0); BG FRACTION INSPIRED OXYGEN 32; BG HCO3 ACT 15.3 mmol/L (22.0-26.0); BG OXYGEN SATURATION 96.9 % (92.0-98.5); BG OXYHEMOGLOBIN 95.9 % (94.0-97.0); BG PCO2 36.2 mmHg (35.0-45.0); BG PH 7.243 (7.350-7.450); BG PO2 104.4 mmHg (75.0-100.0); BG SAMPLE SITE RIGHT RADIAL; BG TOTAL HEMOGLOBIN 11.1 g/dL (12.0-18.0); BG VENT MODE NASAL CANNULA
[2019-09-19] MEDS ORDERED: SODIUM BICARBONATE 8.4% 1 MEQ/ML 50ML SYR IV NR (09:45)
[2019-09-19 10:52] LABS: CLARITY URINE CLEAR (CLEAR); COLOR URINE DARK YELLOW (YELLOW); KETONES URINE NEGATIVE (NEGATIVE); LEUKOCYTE ESTERASE URINE NEGATIVE (NEGATIVE); NITRITE URINE NEGATIVE (NEGATIVE); OCCULT BLOOD URINE NEGATIVE (NEGATIVE); PH URINE >=9.0 (4.5-8.0); PROTEIN URINE 3+ (NEGATIVE); SPECIFIC GRAVITY URINE 1.015 (1.005-1.030)
[2019-09-19] MEDS: DEXT 10% WATER 1,000 ML IV SCH ×2 (11:28→23:09)
[2019-09-19] MEDS ORDERED: CEFEPIME 1,000 MG in DEXTROSE 5% WATER 50 ML IV SCH (12:00)
[2019-09-19] MEDS: METRONIDAZOLE 500 MG PREMIX 100 ML IV SCH ×2 (12:37→23:09)
[2019-09-19] MEDS ORDERED: VANCOMYCIN 1500MG in DEXTROSE 5% WATER 250ML IV NR (15:00)
[2019-09-19] MEDS ORDERED: VANCOMYCIN 750 MG PREMIX 150 ML IV SCH (22:00)
[2019-09-20] VITALS (88 sets, daily range): BP systolic 90–141; BP diastolic 51–105
[2019-09-20] MEDS: CEFAZOLIN 1000MG PREMIX 50 ML IV SCH ×3 (00:48→17:16)
[2019-09-20] MEDS: BLOOD SUGAR DIAGNOSTIC STRIP TEST SCH ×5 (03:50→20:33)
[2019-09-20] MEDS: PHENYLEPHRINE 80 MG in DEXT 5% WATER 500 ML IV PRN (05:52)
[2019-09-20 07:08] LABS: HEMATOCRIT. 31.7 % (42.0-52.0); HEMOGLOBIN. 10.3 g/dL (14.0-18.0); MEAN CORPUSCULAR HEMOGLOBIN 25.9 pg (28.0-32.0); MEAN PLATELET VOLUME 10.7 fl (7.4-10.4); RED BLOOD CELL COUNT 3.97 mill/uL (4.7-6.1); RED CELL DISTRIBUTION WIDTH 17.7 % (11.6-14.6)
[2019-09-20 07:17] LABS: PHOSPHORUS 7.6 mg/dL (2.5-4.9)
[2019-09-20] MEDS: DILTIAZEM HCL 125 MG in DEXT 5% WATER 100 ML IV SCH ×2 (07:20→22:06)
[2019-09-20 08:07] LABS: HIV SCREEN 4G Non Reactive (Non Reactive)
[2019-09-20] MEDS: THIAMINE HCL 100MG TABLET PO SCH (09:06)
[2019-09-20] MEDS: FOLIC ACID/VITAMIN B COMP W-C TABLET PO SCH (09:06)
[2019-09-20] MEDS: FOLIC ACID 1MG TABLET PO SCH (09:06)
[2019-09-20 10:31] LABS: PLATELET ESTIMATE MARKEDLY DECREASED
[2019-09-20 10:32] LABS: PLATELET 11 x1000/uL (130-400)
[2019-09-20] MEDS ORDERED: GUAIFENESIN-DM 200MG-20MG/10ML UDC PO PRN (11:30)
[2019-09-20] MEDS: METRONIDAZOLE 500 MG PREMIX 100 ML IV SCH (12:41)
[2019-09-20] MEDS: DEXT 10% WATER 1,000 ML IV SCH (12:42)
[2019-09-20] MEDS: SODIUM BICARBONATE 150 MEQ in DEXTROSE 5% WATER 850 ML IV SCH (20:34)
[2019-09-20] MEDS ORDERED: FILGRASTIM-TBO 480 MCG/0.8 ML SYRINGE SQ SCH (21:00)
[2019-09-20] MEDS: GUAIFENESIN 600MG ER TABLET PO SCH (22:10)
[2019-09-21] VITALS (96 sets, daily range): BP systolic 33–140; BP diastolic 22–96
[2019-09-21] MEDS: CEFAZOLIN 1000MG PREMIX 50 ML IV SCH ×3 (01:00→16:04)
[2019-09-21] MEDS: PHENYLEPHRINE 80 MG in DEXT 5% WATER 500 ML IV PRN (02:53)
[2019-09-21] MEDS: BLOOD SUGAR DIAGNOSTIC STRIP TEST SCH ×6 (04:00→20:24)
[2019-09-21 05:35] LABS: HEMATOCRIT. 31.2 % (42.0-52.0); HEMOGLOBIN. 10.2 g/dL (14.0-18.0); MEAN CORPUSCULAR HEMOGLOBIN 25.9 pg (28.0-32.0); MEAN CORPUSCULAR VOLUME 79.2 fL (80.0-94.0); MEAN PLATELET VOLUME 11.9 fl (7.4-10.4); RED BLOOD CELL COUNT 3.95 mill/uL (4.7-6.1)
[2019-09-21 06:13] LABS: PLATELET 10 x1000/uL (130-400)
[2019-09-21 06:40] LABS: INR 1.3; PARTIAL THROMBOPLASTIN TIME 42.4 sec (23.4-31.0)
[2019-09-21] MEDS: GUAIFENESIN 600MG ER TABLET PO SCH ×2 (08:35→21:22)
[2019-09-21] MEDS: THIAMINE HCL 100MG TABLET PO SCH (08:35)
[2019-09-21] MEDS: FOLIC ACID 1MG TABLET PO SCH (08:35)
[2019-09-21] MEDS: FOLIC ACID/VITAMIN B COMP W-C TABLET PO SCH (08:35)
[2019-09-21 09:05] LABS: BG BASE EXCESS -6.1 mmol/L (-2.0-2.0); BG CARBOXYHEMOGLOBIN 1.5 % (0.5-1.5); BG DEOXYHEMOGLOBIN 6.2 % (0.0-5.0); BG FRACTION INSPIRED OXYGEN 21; BG HCO3 ACT 18.1 mmol/L (22.0-26.0); BG METHEMOGLOBIN 0.4 % (0.0-1.5); BG OXYGEN SATURATION 93.7 % (92.0-98.5); BG OXYHEMOGLOBIN 91.9 % (94.0-97.0); BG PCO2 31.3 mmHg (35.0-45.0); BG PH 7.379 (7.350-7.450); BG SAMPLE SITE RIGHT RADIAL; BG TOTAL HEMOGLOBIN 10.9 g/dL (12.0-18.0); BG VENT MODE ROOM AIR
[2019-09-21 10:38] LABS: PLATELET ESTIMATE MARKEDLY DECREASED
[2019-09-21] MEDS: METRONIDAZOLE 500 MG PREMIX 100 ML IV SCH ×2 (12:09)
[2019-09-21] MEDS: METHYLPREDNISOLONE SOD SUCC 40 MG/ML VIAL IV SCH ×2 (14:32→21:22)
[2019-09-21] MEDS: MORPHINE SULFATE 2 MG/ML CPJ (NOT FOR IM USE) IV PRN (21:21)
[2019-09-21] MEDS: SODIUM BICARBONATE 150 MEQ in DEXTROSE 5% WATER 850 ML IV SCH (21:21)
[2019-09-22] VITALS (88 sets, daily range): BP systolic 54–165; BP diastolic 24–120
[2019-09-22] MEDS: BLOOD SUGAR DIAGNOSTIC STRIP TEST SCH ×7 (00:22→20:19)
[2019-09-22] MEDS: METRONIDAZOLE 500 MG PREMIX 100 ML IV SCH ×3 (00:31→23:07)
[2019-09-22] MEDS: CEFAZOLIN 1000MG PREMIX 50 ML IV SCH ×3 (00:36→17:09)
[2019-09-22] MEDS: MORPHINE SULFATE 2 MG/ML CPJ (NOT FOR IM USE) IV PRN ×3 (03:19→19:54)
[2019-09-22] MEDS: METHYLPREDNISOLONE SOD SUCC 40 MG/ML VIAL IV SCH ×3 (05:26→21:02)
[2019-09-22 07:11] LABS: HEMATOCRIT. 31.9 % (42.0-52.0); HEMOGLOBIN. 10.3 g/dL (14.0-18.0); MEAN CORPUSCULAR HEMOGLOBIN 25.5 pg (28.0-32.0); MEAN CORPUSCULAR VOLUME 78.6 fL (80.0-94.0); MEAN PLATELET VOLUME 11.7 fl (7.4-10.4); RED BLOOD CELL COUNT 4.06 mill/uL (4.7-6.1); RED CELL DISTRIBUTION WIDTH 18.2 % (11.6-14.6)
[2019-09-22 07:24] LABS: PLATELET 13 x1000/uL (130-400)
[2019-09-22 09:39] LABS: PLATELET ESTIMATE MARKEDLY DECREASED
[2019-09-22] MEDS: FOLIC ACID/VITAMIN B COMP W-C TABLET PO SCH (09:50)
[2019-09-22] MEDS: THIAMINE HCL 100MG TABLET PO SCH (09:50)
[2019-09-22] MEDS: GUAIFENESIN 600MG ER TABLET PO SCH ×2 (09:51→20:01)
[2019-09-22] MEDS: FOLIC ACID 1MG TABLET PO SCH (09:51)
[2019-09-22] MEDS ORDERED: PHENYLEPHRINE 80 MG in SODIUM CHLORIDE 0.9% 492 ML IV PRN (11:15)
[2019-09-22] MEDS ORDERED: PHENYLEPHRINE 80 MG in DEXT 5% WATER 500 ML IV PRN (11:18)
[2019-09-22] MEDS ORDERED: DEXTROSE 50% WATER 50ML SYRINGE IV PRN (11:30)
[2019-09-22] MEDS: MIDODRINE HCL 5MG TABLET PO SCH ×3 (12:15→17:10)
[2019-09-22] MEDS: DILTIAZEM HCL 30MG TABLET PO SCH ×3 (12:15→23:07)
[2019-09-22] MEDS: SODIUM BICARBONATE 150 MEQ in DEXTROSE 5% WATER 850 ML IV SCH (21:04)
[2019-09-23] VITALS (56 sets, daily range): BP systolic 65–155; BP diastolic 14–96
[2019-09-23] MEDS: CEFAZOLIN 1000MG PREMIX 50 ML IV SCH ×3 (00:40→21:59)
[2019-09-23] MEDS: MORPHINE SULFATE 2 MG/ML CPJ (NOT FOR IM USE) IV PRN (00:54)
[2019-09-23] MEDS: LINEZOLID 600 MG PREMIX 300 ML IV SCH ×2 (01:11→12:03)
[2019-09-23] MEDS: METHYLPREDNISOLONE SOD SUCC 40 MG/ML VIAL IV SCH (05:04)
[2019-09-23] MEDS: DILTIAZEM HCL 30MG TABLET PO SCH ×3 (05:05→17:46)
[2019-09-23 06:08] LABS: HEMATOCRIT. 30.3 % (42.0-52.0); HEMOGLOBIN. 9.8 g/dL (14.0-18.0); MEAN CORPUSCULAR HEMOGLOBIN 25.5 pg (28.0-32.0); MEAN CORPUSCULAR VOLUME 78.6 fL (80.0-94.0); MEAN PLATELET VOLUME 11.9 fl (7.4-10.4); RED BLOOD CELL COUNT 3.85 mill/uL (4.7-6.1); RED CELL DISTRIBUTION WIDTH 18.1 % (11.6-14.6)
[2019-09-23 06:42] LABS: PLATELET 17 x1000/uL (130-400)
[2019-09-23 07:47] LABS: PLATELET ESTIMATE MARKEDLY DECREASED
[2019-09-23] MEDS: BLOOD SUGAR DIAGNOSTIC STRIP TEST SCH ×4 (07:50→21:54)
[2019-09-23] MEDS: THIAMINE HCL 100MG TABLET PO SCH (09:49)
[2019-09-23] MEDS: GUAIFENESIN 600MG ER TABLET PO SCH ×2 (09:49→21:59)
[2019-09-23] MEDS: FOLIC ACID/VITAMIN B COMP W-C TABLET PO SCH (09:49)
[2019-09-23] MEDS: FOLIC ACID 1MG TABLET PO SCH (09:49)
[2019-09-23] MEDS ORDERED: MIDODRINE HCL 2.5MG TABLET PO SCH (10:00)
[2019-09-23] MEDS: HYDROCODONE/ACETAMINOPHEN 5/325MG TABLET PO PRN ×2 (11:26→17:51)
[2019-09-23] MEDS: METRONIDAZOLE 500 MG PREMIX 100 ML IV SCH (12:03)
[2019-09-23] MEDS: CALCIUM ACETATE 667MG CAPSULE PO SCH ×2 (13:48→17:46)
[2019-09-23] MEDS: MIDODRINE HCL 5MG TABLET PO SCH ×2 (15:21→17:46)
[2019-09-23] MEDS: SODIUM BICARBONATE 150 MEQ in DEXTROSE 5% WATER 850 ML IV SCH (18:40)
[2019-09-23] MEDS ORDERED: LORAZEPAM 2MG/ML CPJ IV PRN (22:42)
[2019-09-24] VITALS (47 sets, daily range): BP systolic 85–128; BP diastolic 50–96
[2019-09-24] MEDS: METRONIDAZOLE 500 MG PREMIX 100 ML IV SCH ×2 (00:47→14:16)
[2019-09-24] MEDS: DILTIAZEM HCL 30MG TABLET PO SCH ×4 (00:47→21:08)
[2019-09-24] MEDS: LINEZOLID 600 MG PREMIX 300 ML IV SCH ×2 (00:47→14:16)
[2019-09-24] MEDS: SODIUM BICARBONATE 150 MEQ in DEXTROSE 5% WATER 850 ML IV SCH ×2 (02:00→18:02)
[2019-09-24 05:43] LABS: HEMATOCRIT. 29.4 % (42.0-52.0); HEMOGLOBIN. 9.6 g/dL (14.0-18.0); MEAN CORPUSCULAR HEMOGLOBIN 25.5 pg (28.0-32.0); MEAN CORPUSCULAR VOLUME 78.1 fL (80.0-94.0); MEAN PLATELET VOLUME 11.2 fl (7.4-10.4); RED BLOOD CELL COUNT 3.77 mill/uL (4.7-6.1); RED CELL DISTRIBUTION WIDTH 17.6 % (11.6-14.6)
[2019-09-24 05:57] LABS: PHOSPHORUS 8.5 mg/dL (2.5-4.9)
[2019-09-24] MEDS ORDERED: SODIUM CHLORIDE 0.9% 500 ML IV ONE (06:15)
[2019-09-24] MEDS: BLOOD SUGAR DIAGNOSTIC STRIP TEST SCH ×4 (07:50→19:33)
[2019-09-24 09:17] LABS: PLATELET ESTIMATE MARKEDLY DECREASED
[2019-09-24 09:26] LABS: PLATELET 20 x1000/uL (130-400)
[2019-09-24] MEDS ORDERED: MORPHINE SULFATE 4 MG/ML CPJ (NOT FOR IM USE) IV ONE (09:28)
[2019-09-24] MEDS ORDERED: MORPHINE SULFATE 4 MG/ML CPJ (NOT FOR IM USE) IV SCH (09:30)
[2019-09-24] MEDS ORDERED: LORAZEPAM 2MG/ML CPJ IV SCH ×2 (09:30→10:15)
[2019-09-24] MEDS ORDERED: LORAZEPAM 2MG/ML CPJ IV ONE (09:50)
[2019-09-24] MEDS: CALCIUM ACETATE 667MG CAPSULE PO SCH ×3 (10:17→18:08)
[2019-09-24] MEDS: FOLIC ACID/VITAMIN B COMP W-C TABLET PO SCH (10:17)
[2019-09-24] MEDS: FOLIC ACID 1MG TABLET PO SCH (10:17)
[2019-09-24] MEDS: METHYLPREDNISOLONE SOD SUCC 40 MG/ML VIAL IV SCH (10:17)
[2019-09-24] MEDS: THIAMINE HCL 100MG TABLET PO SCH (10:17)
[2019-09-24] MEDS: CEFAZOLIN 1000MG PREMIX 50 ML IV SCH ×2 (10:17→19:33)
[2019-09-24] MEDS: GUAIFENESIN 600MG ER TABLET PO SCH ×2 (10:18→19:33)
[2019-09-24] MEDS: MIDODRINE HCL 5MG TABLET PO SCH ×3 (10:18→18:09)
[2019-09-24] MEDS ORDERED: ALBUMIN HUMAN 25GM/100ML (25%) IV NR (12:15)
[2019-09-25] VITALS (16 sets, daily range): BP systolic 95–158; BP diastolic 56–90
[2019-09-25] MEDS: METRONIDAZOLE 500 MG PREMIX 100 ML IV SCH ×2 (00:10→12:35)
[2019-09-25] MEDS: LINEZOLID 600 MG PREMIX 300 ML IV SCH ×2 (00:25→13:59)
[2019-09-25] MEDS: DILTIAZEM HCL 30MG TABLET PO SCH ×3 (06:32→22:12)
[2019-09-25] MEDS: BLOOD SUGAR DIAGNOSTIC STRIP TEST SCH ×4 (06:33→21:00)
[2019-09-25] MEDS: CALCIUM ACETATE 667MG CAPSULE PO SCH (06:35)
[2019-09-25 07:14] LABS: HEMATOCRIT. 30.7 % (42.0-52.0); HEMOGLOBIN. 9.9 g/dL (14.0-18.0); MEAN CORPUSCULAR HEMOGLOBIN 25.4 pg (28.0-32.0); MEAN CORPUSCULAR VOLUME 78.7 fL (80.0-94.0); MEAN PLATELET VOLUME 11.9 fl (7.4-10.4); RED CELL DISTRIBUTION WIDTH 17.8 % (11.6-14.6)
[2019-09-25 07:40] LABS: PLATELET 18 x1000/uL (130-400)
[2019-09-25 08:22] LABS: PHOSPHORUS 0.7 mg/dL (2.5-4.9)
[2019-09-25] MEDS: MIDODRINE HCL 5MG TABLET PO SCH ×3 (09:28→17:00)
[2019-09-25] MEDS: GUAIFENESIN 600MG ER TABLET PO SCH ×2 (09:28→22:14)
[2019-09-25] MEDS: FOLIC ACID/VITAMIN B COMP W-C TABLET PO SCH (09:29)
[2019-09-25] MEDS: METHYLPREDNISOLONE SOD SUCC 40 MG/ML VIAL IV SCH (09:29)
[2019-09-25] MEDS: THIAMINE HCL 100MG TABLET PO SCH (09:29)
[2019-09-25] MEDS: FOLIC ACID 1MG TABLET PO SCH (09:29)
[2019-09-25] MEDS: HYDROCODONE/ACETAMINOPHEN 5/325MG TABLET PO PRN (09:39)
[2019-09-25] MEDS ORDERED: LIDOCAINE HCL 1% 20ML VIAL (Pyxis) INJ ONE (09:58)
[2019-09-25 11:10] LABS: PLATELET ESTIMATE MARKEDLY DECREASED
[2019-09-25] MEDS: CEFAZOLIN 1000MG PREMIX 50 ML IV SCH ×2 (11:42→22:13)
[2019-09-25] MEDS ORDERED: SODIUM PHOS,M-BASIC-D-BASIC 30 MM in DEXT 5% WATER 500 ML IV NR (12:30)
[2019-09-25] MEDS ORDERED: BLOOD SUGAR DIAGNOSTIC STRIP TEST SCH (16:50)
[2019-09-25] MEDS ORDERED: DEXTROSE 50% WATER 50ML SYRINGE IV PRN (17:00)
[2019-09-25] MEDS: INSULIN LISPRO 100 UNITS/ML SUBCUT SCH ×2 (18:05→21:00)
[2019-09-25] MEDS ORDERED: METOPROLOL TARTRATE 5MG/5ML VIAL IV NR (18:15)
[2019-09-26] VITALS (12 sets, daily range): BP systolic 114–137; BP diastolic 69–89
[2019-09-26] MEDS: METRONIDAZOLE 500 MG PREMIX 100 ML IV SCH ×2 (01:26→12:16)
[2019-09-26] MEDS: LINEZOLID 600 MG PREMIX 300 ML IV SCH ×2 (02:33→14:05)
[2019-09-26] MEDS: DILTIAZEM HCL 30MG TABLET PO SCH ×3 (06:01→22:05)
[2019-09-26] MEDS: BLOOD SUGAR DIAGNOSTIC STRIP TEST SCH ×4 (06:01→21:00)
[2019-09-26] MEDS: INSULIN LISPRO 100 UNITS/ML SUBCUT SCH ×4 (07:20→21:00)
[2019-09-26] MEDS: MORPHINE SULFATE 2 MG/ML CPJ (NOT FOR IM USE) IV PRN (07:44)
[2019-09-26 07:45] LABS: HEMATOCRIT. 27.5 % (42.0-52.0); MEAN CORPUSCULAR HEMOGLOBIN 25.8 pg (28.0-32.0); MEAN CORPUSCULAR VOLUME 79.1 fL (80.0-94.0); MEAN PLATELET VOLUME 11.7 fl (7.4-10.4); RED BLOOD CELL COUNT 3.47 mill/uL (4.7-6.1); RED CELL DISTRIBUTION WIDTH 17.7 % (11.6-14.6)
[2019-09-26 07:52] LABS: PLATELET 28 x1000/uL (130-400)
[2019-09-26] MEDS: FOLIC ACID/VITAMIN B COMP W-C TABLET PO SCH ×2 (09:00→09:19)
[2019-09-26] MEDS: FOLIC ACID 1MG TABLET PO SCH ×2 (09:00→09:19)
[2019-09-26] MEDS: THIAMINE HCL 100MG TABLET PO SCH ×2 (09:00→09:19)
[2019-09-26] MEDS: MIDODRINE HCL 5MG TABLET PO SCH ×4 (09:00→18:25)
[2019-09-26] MEDS: GUAIFENESIN 600MG ER TABLET PO SCH ×3 (09:00→21:34)
[2019-09-26 09:12] LABS: PLATELET ESTIMATE MARKEDLY DECREASED
[2019-09-26] MEDS: CEFAZOLIN 1000MG PREMIX 50 ML IV SCH ×2 (09:18→22:17)
[2019-09-26] MEDS: METHYLPREDNISOLONE SOD SUCC 40 MG/ML VIAL IV SCH (09:19)
[2019-09-26 09:23] LABS: PHOSPHORUS 8.9 mg/dL (2.5-4.9)
[2019-09-26] MEDS: FUROSEMIDE 100MG/10ML VIAL IVP SCH (12:15)
[2019-09-27] VITALS (13 sets, daily range): BP systolic 112–137; BP diastolic 69–89
[2019-09-27] MEDS: LINEZOLID 600 MG PREMIX 300 ML IV SCH (01:00)
[2019-09-27] MEDS: HYDROCODONE/ACETAMINOPHEN 5/325MG TABLET PO PRN (01:27)
[2019-09-27] MEDS: BLOOD SUGAR DIAGNOSTIC STRIP TEST SCH ×4 (06:46→21:00)
[2019-09-27] MEDS: DILTIAZEM HCL 30MG TABLET PO SCH ×3 (06:46→23:32)
[2019-09-27] MEDS: INSULIN LISPRO 100 UNITS/ML SUBCUT SCH ×4 (07:12→21:00)
[2019-09-27 07:17] LABS: HEMATOCRIT. 27.7 % (42.0-52.0); HEMOGLOBIN. 8.9 g/dL (14.0-18.0); MEAN CORPUSCULAR HEMOGLOBIN 25.7 pg (28.0-32.0); MEAN CORPUSCULAR VOLUME 80.5 fL (80.0-94.0); MEAN PLATELET VOLUME 13.2 fl (7.4-10.4); RED BLOOD CELL COUNT 3.44 mill/uL (4.7-6.1); RED CELL DISTRIBUTION WIDTH 17.7 % (11.6-14.6)
[2019-09-27 07:21] LABS: PLATELET 33 x1000/uL (130-400)
[2019-09-27] MEDS: GUAIFENESIN 600MG ER TABLET PO SCH ×2 (08:07→23:32)
[2019-09-27] MEDS: THIAMINE HCL 100MG TABLET PO SCH (08:07)
[2019-09-27] MEDS: CEFAZOLIN 1000MG PREMIX 50 ML IV SCH ×2 (08:08→23:32)
[2019-09-27] MEDS: FUROSEMIDE 100MG/10ML VIAL IVP SCH (08:08)
[2019-09-27] MEDS: FOLIC ACID/VITAMIN B COMP W-C TABLET PO SCH (08:08)
[2019-09-27] MEDS: METHYLPREDNISOLONE SOD SUCC 40 MG/ML VIAL IV SCH (08:08)
[2019-09-27 08:27] LABS: PHOSPHORUS 8.7 mg/dL (2.5-4.9)
[2019-09-27] MEDS: MIDODRINE HCL 5MG TABLET PO SCH ×3 (09:00→16:19)
[2019-09-27 10:09] LABS: PLATELET ESTIMATE MARKEDLY DECREASED
[2019-09-27] MEDS: CALCIUM ACETATE 667MG CAPSULE PO SCH ×2 (12:19→16:18)
[2019-09-28] VITALS (10 sets, daily range): BP systolic 111–155; BP diastolic 70–85
[2019-09-28] MEDS: BLOOD SUGAR DIAGNOSTIC STRIP TEST SCH ×4 (06:08→21:55)
[2019-09-28] MEDS: DILTIAZEM HCL 30MG TABLET PO SCH ×3 (06:08→21:55)
[2019-09-28 06:34] LABS: HEMOGLOBIN. 8.9 g/dL (14.0-18.0); MEAN CORPUSCULAR HEMOGLOBIN 25.5 pg (28.0-32.0); MEAN CORPUSCULAR VOLUME 80.6 fL (80.0-94.0); RED BLOOD CELL COUNT 3.47 mill/uL (4.7-6.1); RED CELL DISTRIBUTION WIDTH 17.6 % (11.6-14.6)
[2019-09-28 06:41] LABS: PLATELET 19 x1000/uL (130-400)
[2019-09-28 07:01] LABS: PHOSPHORUS 7.6 mg/dL (2.5-4.9)
[2019-09-28] MEDS: CALCIUM ACETATE 667MG CAPSULE PO SCH ×2 (07:56→12:20)
[2019-09-28] MEDS: INSULIN LISPRO 100 UNITS/ML SUBCUT SCH ×5 (07:57→21:00)
[2019-09-28] MEDS: THIAMINE HCL 100MG TABLET PO SCH (09:30)
[2019-09-28] MEDS: FOLIC ACID/VITAMIN B COMP W-C TABLET PO SCH (09:30)
[2019-09-28] MEDS: MIDODRINE HCL 5MG TABLET PO SCH ×3 (09:32→18:48)
[2019-09-28] MEDS: METHYLPREDNISOLONE SOD SUCC 40 MG/ML VIAL IV SCH (09:32)
[2019-09-28] MEDS: FUROSEMIDE 100MG/10ML VIAL IVP SCH (09:34)
[2019-09-28] MEDS: CEFAZOLIN 1000MG PREMIX 50 ML IV SCH ×2 (09:41→21:55)
[2019-09-28] MEDS: GUAIFENESIN 600MG ER TABLET PO SCH ×2 (09:41→21:53)
[2019-09-28 17:03] LABS: PLATELET ESTIMATE MARKEDLY DECREASED
[2019-09-28] MEDS: SEVELAMER CARBONATE 800 MG TABLET PO SCH (18:48)
[2019-09-29] VITALS (7 sets, daily range): BP systolic 119–162; BP diastolic 62–86
[2019-09-29] MEDS: BLOOD SUGAR DIAGNOSTIC STRIP TEST SCH ×4 (06:34→21:26)
[2019-09-29] MEDS: DILTIAZEM HCL 30MG TABLET PO SCH ×3 (06:34→21:02)
[2019-09-29 07:28] LABS: PHOSPHORUS 7.8 mg/dL (2.5-4.9)
[2019-09-29 07:37] LABS: HEMOGLOBIN. 8.3 g/dL (14.0-18.0); MEAN CORPUSCULAR VOLUME 81.1 fL (80.0-94.0); MEAN PLATELET VOLUME 15.9 fl (7.4-10.4); RED BLOOD CELL COUNT 3.21 mill/uL (4.7-6.1); RED CELL DISTRIBUTION WIDTH 17.5 % (11.6-14.6)
[2019-09-29 07:41] LABS: PLATELET 38 x1000/uL (130-400)
[2019-09-29] MEDS: INSULIN LISPRO 100 UNITS/ML SUBCUT SCH ×4 (07:50→21:00)
[2019-09-29] MEDS: GUAIFENESIN 600MG ER TABLET PO SCH ×2 (09:00→20:33)
[2019-09-29] MEDS: THIAMINE HCL 100MG TABLET PO SCH (09:38)
[2019-09-29] MEDS: SEVELAMER CARBONATE 800 MG TABLET PO SCH ×3 (09:38→18:11)
[2019-09-29] MEDS: FUROSEMIDE 100MG/10ML VIAL IVP SCH (09:38)
[2019-09-29] MEDS: METHYLPREDNISOLONE SOD SUCC 40 MG/ML VIAL IV SCH (09:38)
[2019-09-29] MEDS: CEFAZOLIN 1000MG PREMIX 50 ML IV SCH ×2 (09:39→20:32)
[2019-09-29] MEDS: MIDODRINE HCL 5MG TABLET PO SCH ×3 (09:39→17:13)
[2019-09-29] MEDS: FOLIC ACID/VITAMIN B COMP W-C TABLET PO SCH (09:39)
[2019-09-29 13:32] LABS: PLATELET ESTIMATE MARKEDLY DECREASED
[2019-09-29] MEDS: DIPHENHYDRAMINE 50MG/ML VIAL IV PRN (20:33)
[2019-09-29] MEDS: ZOLPIDEM TARTRATE 5MG TABLET PO PRN (20:55)
[2019-09-30] VITALS (7 sets, daily range): BP systolic 131–153; BP diastolic 72–95
[2019-09-30] MEDS: MORPHINE SULFATE 2 MG/ML CPJ (NOT FOR IM USE) IV PRN ×2 (02:06→20:49)
[2019-09-30] MEDS: DILTIAZEM HCL 30MG TABLET PO SCH ×3 (05:31→21:02)
[2019-09-30] MEDS: BLOOD SUGAR DIAGNOSTIC STRIP TEST SCH ×4 (05:32→21:14)
[2019-09-30] MEDS: INSULIN LISPRO 100 UNITS/ML SUBCUT SCH ×4 (07:50→21:00)
[2019-09-30 08:58] LABS: HEMATOCRIT. 26.3 % (42.0-52.0); HEMOGLOBIN. 8.2 g/dL (14.0-18.0); MEAN CORPUSCULAR HEMOGLOBIN 25.9 pg (28.0-32.0); MEAN CORPUSCULAR VOLUME 83.2 fL (80.0-94.0); RED BLOOD CELL COUNT 3.16 mill/uL (4.7-6.1); RED CELL DISTRIBUTION WIDTH 18.1 % (11.6-14.6)
[2019-09-30] MEDS: GUAIFENESIN 600MG ER TABLET PO SCH ×2 (09:00→20:49)
[2019-09-30] MEDS: FOLIC ACID/VITAMIN B COMP W-C TABLET PO SCH (09:00)
[2019-09-30] MEDS: FUROSEMIDE 100MG/10ML VIAL IVP SCH (09:00)
[2019-09-30] MEDS: THIAMINE HCL 100MG TABLET PO SCH (09:00)
[2019-09-30 09:59] LABS: PHOSPHORUS 8.1 mg/dL (2.5-4.9)
[2019-09-30 10:06] LABS: PLATELET 25 x1000/uL (130-400)
[2019-09-30] MEDS: SEVELAMER CARBONATE 800 MG TABLET PO SCH ×3 (10:36→19:06)
[2019-09-30] MEDS: MIDODRINE HCL 5MG TABLET PO SCH ×3 (10:37→19:06)
[2019-09-30] MEDS: METHYLPREDNISOLONE SOD SUCC 40 MG/ML VIAL IV SCH (10:37)
[2019-09-30 18:48] LABS: PLATELET ESTIMATE MARKEDLY DECREASED
[2019-09-30] MEDS: DIPHENHYDRAMINE 50MG/ML VIAL IV PRN (21:02)
[2019-09-30] MEDS: ZOLPIDEM TARTRATE 5MG TABLET PO PRN (21:22)
[2019-10-01] VITALS: BP_SYST 130; BP_SYST 132; BP_DIAS 80; BP_DIAS 82
[2019-10-01 04:00] VITALS: BP 135/90
[2019-10-01] MEDS: DILTIAZEM HCL 30MG TABLET PO SCH ×3 (05:09→21:16)
[2019-10-01] MEDS: BLOOD SUGAR DIAGNOSTIC STRIP TEST SCH ×4 (05:24→21:17)
[2019-10-01 07:36] LABS: HEMATOCRIT. 25.4 % (42.0-52.0); MEAN CORPUSCULAR HEMOGLOBIN 26.1 pg (28.0-32.0); MEAN CORPUSCULAR VOLUME 82.7 fL (80.0-94.0); MEAN PLATELET VOLUME 8.8 fl (7.4-10.4); RED BLOOD CELL COUNT 3.07 mill/uL (4.7-6.1); RED CELL DISTRIBUTION WIDTH 17.8 % (11.6-14.6)
[2019-10-01 07:48] LABS: PLATELET 44 x1000/uL (130-400)
[2019-10-01] MEDS: INSULIN LISPRO 100 UNITS/ML SUBCUT SCH ×4 (07:50→21:00)
[2019-10-01 08:17] VITALS: BP 122/84
[2019-10-01 09:16] LABS: PHOSPHORUS 6.5 mg/dL (2.5-4.9)
[2019-10-01] MEDS: GUAIFENESIN 600MG ER TABLET PO SCH ×2 (10:16→20:33)
[2019-10-01] MEDS: FOLIC ACID/VITAMIN B COMP W-C TABLET PO SCH (10:16)
[2019-10-01] MEDS: THIAMINE HCL 100MG TABLET PO SCH (10:16)
[2019-10-01] MEDS: SEVELAMER CARBONATE 800 MG TABLET PO SCH ×3 (10:16→17:50)
[2019-10-01] MEDS: MIDODRINE HCL 5MG TABLET PO SCH ×3 (10:17→17:00)
[2019-10-01] MEDS: METHYLPREDNISOLONE SOD SUCC 40 MG/ML VIAL IV SCH (10:32)
[2019-10-01 12:09] VITALS: BP 166/85
[2019-10-01 16:11] VITALS: BP 125/84
[2019-10-01 20:00] VITALS: BP 147/84
[2019-10-01 20:03] LABS: PLATELET ESTIMATE MARKEDLY DECREASED
[2019-10-01] MEDS: MORPHINE SULFATE 2 MG/ML CPJ (NOT FOR IM USE) IV PRN (20:33)
[2019-10-01] MEDS: ZOLPIDEM TARTRATE 5MG TABLET PO PRN (21:17)
[2019-10-02] VITALS (12 sets, daily range): BP systolic 121–151; BP diastolic 74–96
[2019-10-02] MEDS: MORPHINE SULFATE 2 MG/ML CPJ (NOT FOR IM USE) IV PRN (01:45)
[2019-10-02] MEDS: DIPHENHYDRAMINE 50MG/ML VIAL IV PRN (02:03)
[2019-10-02] MEDS: DILTIAZEM HCL 30MG TABLET PO SCH ×3 (06:05→21:40)
[2019-10-02] MEDS: BLOOD SUGAR DIAGNOSTIC STRIP TEST SCH ×4 (06:15→21:40)
[2019-10-02] MEDS: INSULIN LISPRO 100 UNITS/ML SUBCUT SCH ×4 (07:50→21:00)
[2019-10-02] MEDS: SEVELAMER CARBONATE 800 MG TABLET PO SCH ×3 (07:50→17:14)
[2019-10-02] MEDS: GUAIFENESIN 600MG ER TABLET PO SCH ×2 (09:04→21:40)
[2019-10-02] MEDS: MIDODRINE HCL 5MG TABLET PO SCH ×3 (09:05→17:00)
[2019-10-02] MEDS: METHYLPREDNISOLONE SOD SUCC 40 MG/ML VIAL IV SCH (09:05)
[2019-10-02] MEDS: FOLIC ACID/VITAMIN B COMP W-C TABLET PO SCH (09:05)
[2019-10-02] MEDS: THIAMINE HCL 100MG TABLET PO SCH (09:11)
[2019-10-02 09:27] LABS: HEMATOCRIT. 24.3 % (42.0-52.0); HEMOGLOBIN. 7.6 g/dL (14.0-18.0); MEAN CORPUSCULAR HEMOGLOBIN 25.8 pg (28.0-32.0); MEAN CORPUSCULAR VOLUME 82.8 fL (80.0-94.0); MEAN PLATELET VOLUME 11.7 fl (7.4-10.4); RED BLOOD CELL COUNT 2.94 mill/uL (4.7-6.1); RED CELL DISTRIBUTION WIDTH 17.7 % (11.6-14.6)
[2019-10-02 09:30] LABS: PLATELET 31 x1000/uL (130-400)
[2019-10-02 16:37] LABS: PLATELET ESTIMATE MARKEDLY DECREASED
[2019-10-03] VITALS (14 sets, daily range): BP systolic 127–149; BP diastolic 67–98
[2019-10-03] MEDS: DILTIAZEM HCL 30MG TABLET PO SCH ×3 (05:11→21:51)
[2019-10-03 06:54] LABS: HEMATOCRIT. 22.6 % (42.0-52.0); HEMOGLOBIN. 7.1 g/dL (14.0-18.0); MEAN CORPUSCULAR VOLUME 83.4 fL (80.0-94.0); MEAN PLATELET VOLUME 10.6 fl (7.4-10.4); RED BLOOD CELL COUNT 2.72 mill/uL (4.7-6.1); RED CELL DISTRIBUTION WIDTH 17.9 % (11.6-14.6)
[2019-10-03] MEDS: BLOOD SUGAR DIAGNOSTIC STRIP TEST SCH ×5 (07:20→21:00)
[2019-10-03 07:46] LABS: PLATELET 44 x1000/uL (130-400)
[2019-10-03] MEDS: INSULIN LISPRO 100 UNITS/ML SUBCUT SCH ×4 (07:50→21:50)
[2019-10-03 07:59] LABS: PHOSPHORUS 6.6 mg/dL (2.5-4.9)
[2019-10-03] MEDS: FOLIC ACID/VITAMIN B COMP W-C TABLET PO SCH (10:00)
[2019-10-03] MEDS: THIAMINE HCL 100MG TABLET PO SCH (10:00)
[2019-10-03] MEDS: METHYLPREDNISOLONE SOD SUCC 40 MG/ML VIAL IV SCH (10:00)
[2019-10-03] MEDS: SEVELAMER CARBONATE 800 MG TABLET PO SCH ×3 (10:01→18:26)
[2019-10-03] MEDS: MIDODRINE HCL 5MG TABLET PO SCH ×3 (10:01→18:27)
[2019-10-03] MEDS: GUAIFENESIN 600MG ER TABLET PO SCH ×2 (10:07→21:50)
[2019-10-03] MEDS ORDERED: SODIUM BICARBONATE 4% (2.4MEQ) 5ML VIAL IV ONE (13:21)
[2019-10-03] MEDS ORDERED: LIDOCAINE HCL 1% 20ML VIAL (Pyxis) INJ ONE (13:21)
[2019-10-03] MEDS ORDERED: LIDOCAINE HCL/EPINEPHRINE 1%-EPI 1:100,000 20 ML VIAL ONE (13:21)
[2019-10-03] MEDS ORDERED: HEPARIN 1000 UNITS/ML 10ML ONE (13:22)
[2019-10-03] MEDS ORDERED: CEFAZOLIN 1000MG PREMIX 50 ML IV NR (13:30)
[2019-10-03 13:44] LABS: PLATELET ESTIMATE MARKEDLY DECREASED
[2019-10-03] MEDS ORDERED: CEFAZOLIN 1000MG PREMIX 50 ML IV ONE (14:16)
[2019-10-03] MEDS: ZOLPIDEM TARTRATE 5MG TABLET PO PRN (21:51)
[2019-10-04 00:08] VITALS: BP 126/74
[2019-10-04 04:25] VITALS: BP 154/99
[2019-10-04] MEDS: DILTIAZEM HCL 30MG TABLET PO SCH ×3 (06:14→21:43)
[2019-10-04] MEDS: BLOOD SUGAR DIAGNOSTIC STRIP TEST SCH ×4 (06:42→21:43)
[2019-10-04] MEDS: INSULIN LISPRO 100 UNITS/ML SUBCUT SCH ×4 (07:41→21:00)
[2019-10-04 08:00] VITALS: BP 141/102
[2019-10-04 08:21] LABS: HEMATOCRIT. 24.5 % (42.0-52.0); HEMOGLOBIN. 7.6 g/dL (14.0-18.0); MEAN CORPUSCULAR VOLUME 84.1 fL (80.0-94.0); MEAN PLATELET VOLUME 11.9 fl (7.4-10.4); RED BLOOD CELL COUNT 2.91 mill/uL (4.7-6.1); RED CELL DISTRIBUTION WIDTH 17.9 % (11.6-14.6)
[2019-10-04] MEDS: METHYLPREDNISOLONE SOD SUCC 40 MG/ML VIAL IV SCH (08:38)
[2019-10-04 08:39] LABS: PHOSPHORUS 7.2 mg/dL (2.5-4.9)
[2019-10-04] MEDS: FOLIC ACID/VITAMIN B COMP W-C TABLET PO SCH (08:39)
[2019-10-04] MEDS: THIAMINE HCL 100MG TABLET PO SCH (08:39)
[2019-10-04] MEDS: GUAIFENESIN 600MG ER TABLET PO SCH ×2 (08:39→21:42)
[2019-10-04] MEDS: SEVELAMER CARBONATE 800 MG TABLET PO SCH ×3 (08:39→17:51)
[2019-10-04] MEDS: MIDODRINE HCL 5MG TABLET PO SCH ×3 (08:40→17:51)
[2019-10-04 09:14] LABS: PLATELET 42 x1000/uL (130-400)
[2019-10-04 12:00] VITALS: BP 137/97
[2019-10-04 16:00] VITALS: BP 133/95
[2019-10-04 20:19] LABS: BG BASE EXCESS -2.3 mmol/L (-2.0-2.0); BG CARBOXYHEMOGLOBIN 0.9 % (0.5-1.5); BG DEOXYHEMOGLOBIN 3.6 % (0.0-5.0); BG FRACTION INSPIRED OXYGEN 28; BG HCO3 ACT 22.7 mmol/L (22.0-26.0); BG METHEMOGLOBIN 0.3 % (0.0-1.5); BG OXYGEN SATURATION 96.4 % (92.0-98.5); BG OXYHEMOGLOBIN 95.2 % (94.0-97.0); BG PCO2 39.4 mmHg (35.0-45.0); BG PH 7.378 (7.350-7.450); BG PO2 95.4 mmHg (75.0-100.0); BG SAMPLE SITE LEFT RADIAL; BG TOTAL HEMOGLOBIN 8.3 g/dL (12.0-18.0); BG VENT MODE NASAL CANNULA
[2019-10-04 20:50] VITALS: BP 141/96
[2019-10-05 00:43] VITALS: BP 127/83
[2019-10-05] MEDS ORDERED: ZOLPIDEM TARTRATE 5MG TABLET PO PRN (01:00)
[2019-10-05 04:00] VITALS: BP 140/93
[2019-10-05] MEDS: BLOOD SUGAR DIAGNOSTIC STRIP TEST SCH ×4 (06:40→21:00)
[2019-10-05] MEDS: DILTIAZEM HCL 30MG TABLET PO SCH ×3 (06:40→22:00)
[2019-10-05 07:31] LABS: HEMATOCRIT. 22.6 % (42.0-52.0); MEAN CORPUSCULAR HEMOGLOBIN 25.8 pg (28.0-32.0); MEAN CORPUSCULAR VOLUME 83.9 fL (80.0-94.0); MEAN PLATELET VOLUME 11.4 fl (7.4-10.4); RED BLOOD CELL COUNT 2.69 mill/uL (4.7-6.1); RED CELL DISTRIBUTION WIDTH 18.3 % (11.6-14.6)
[2019-10-05] MEDS: INSULIN LISPRO 100 UNITS/ML SUBCUT SCH ×4 (07:50→21:00)
[2019-10-05 08:03] LABS: HEMOGLOBIN. 6.9 g/dL (14.0-18.0); PLATELET 43 x1000/uL (130-400)
[2019-10-05 08:06] LABS: PHOSPHORUS 7.2 mg/dL (2.5-4.9)
[2019-10-05] MEDS: MIDODRINE HCL 5MG TABLET PO SCH ×3 (08:19→17:26)
[2019-10-05] MEDS: GUAIFENESIN 600MG ER TABLET PO SCH ×2 (08:19→22:18)
[2019-10-05] MEDS: METHYLPREDNISOLONE SOD SUCC 40 MG/ML VIAL IV SCH (08:19)
[2019-10-05] MEDS: FOLIC ACID/VITAMIN B COMP W-C TABLET PO SCH (08:19)
[2019-10-05] MEDS: SEVELAMER CARBONATE 800 MG TABLET PO SCH ×3 (08:19→17:26)
[2019-10-05] MEDS: THIAMINE HCL 100MG TABLET PO SCH (08:19)
[2019-10-05] MEDS ORDERED: BISACODYL 10MG SUPP PR NR (10:15)
[2019-10-05 12:00] VITALS: BP 126/90
[2019-10-05 12:34] LABS: HEMATOCRIT 22.6 % (42.0-52.0)
[2019-10-05 12:45] LABS: PROTHROMBIN TIME 10.3 sec (9.6-11.0)
[2019-10-05 13:01] LABS: TOTAL IRON BINDING CAPACITY 191 ug/dL (250-450)
[2019-10-05 15:07] LABS: PLATELET ESTIMATE MARKEDLY DECREASED
[2019-10-05 16:00] VITALS: BP_SYST 151; BP_DIAS 103; BP_DIAS 80
[2019-10-05 17:36] VITALS: BP 133/88
[2019-10-05 20:38] VITALS: BP 139/87
[2019-10-06] VITALS (9 sets, daily range): BP systolic 130–150; BP diastolic 82–98
[2019-10-06] MEDS: DILTIAZEM HCL 30MG TABLET PO SCH ×3 (05:05→22:58)
[2019-10-06 06:37] LABS: HEMATOCRIT. 24.7 % (42.0-52.0); HEMOGLOBIN. 7.8 g/dL (14.0-18.0); MEAN CORPUSCULAR HEMOGLOBIN 26.5 pg (28.0-32.0); MEAN CORPUSCULAR VOLUME 84.2 fL (80.0-94.0); MEAN PLATELET VOLUME 11.6 fl (7.4-10.4); RED BLOOD CELL COUNT 2.93 mill/uL (4.7-6.1); RED CELL DISTRIBUTION WIDTH 17.7 % (11.6-14.6)
[2019-10-06 06:51] LABS: PHOSPHORUS 5.8 mg/dL (2.5-4.9)
[2019-10-06] MEDS: BLOOD SUGAR DIAGNOSTIC STRIP TEST SCH ×4 (07:12→21:00)
[2019-10-06] MEDS: INSULIN LISPRO 100 UNITS/ML SUBCUT SCH ×4 (07:50→21:00)
[2019-10-06] MEDS: THIAMINE HCL 100MG TABLET PO SCH (09:20)
[2019-10-06] MEDS: FOLIC ACID/VITAMIN B COMP W-C TABLET PO SCH (09:20)
[2019-10-06] MEDS: SEVELAMER CARBONATE 800 MG TABLET PO SCH ×3 (09:21→18:09)
[2019-10-06] MEDS: MIDODRINE HCL 5MG TABLET PO SCH ×2 (09:23→15:00)
[2019-10-06] MEDS: METHYLPREDNISOLONE SOD SUCC 40 MG/ML VIAL IV SCH (09:30)
[2019-10-06] MEDS: GUAIFENESIN 600MG ER TABLET PO SCH (09:30)
[2019-10-06 13:38] LABS: PLATELET ESTIMATE MARKEDLY DECREASED
[2019-10-06 14:35] LABS: PLATELET ESTIMATE MARKEDLY DECREASED
[2019-10-06 14:38] LABS: PLATELET 45 x1000/uL (130-400)
[2019-10-06] MEDS ORDERED: HYDROCODONE/ACETAMINOPHEN 5/325MG TABLET PO PRN (17:30)
[2019-10-07 00:44] VITALS: BP 145/90
[2019-10-07 04:00] VITALS: BP 144/81
[2019-10-07] MEDS: BLOOD SUGAR DIAGNOSTIC STRIP TEST SCH ×4 (07:20→21:02)
[2019-10-07] MEDS: INSULIN LISPRO 100 UNITS/ML SUBCUT SCH ×4 (07:50→21:00)
[2019-10-07 08:00] VITALS: BP 134/80
[2019-10-07] MEDS: DILTIAZEM HCL 30MG TABLET PO SCH ×3 (08:23→21:02)
[2019-10-07 08:38] LABS: HEMATOCRIT. 23.3 % (42.0-52.0); HEMOGLOBIN. 7.3 g/dL (14.0-18.0); MEAN CORPUSCULAR HEMOGLOBIN 26.7 pg (28.0-32.0); MEAN CORPUSCULAR VOLUME 85.5 fL (80.0-94.0); MEAN PLATELET VOLUME 11.6 fl (7.4-10.4); RED BLOOD CELL COUNT 2.73 mill/uL (4.7-6.1); RED CELL DISTRIBUTION WIDTH 18.8 % (11.6-14.6)
[2019-10-07 09:05] LABS: PHOSPHORUS 7.3 mg/dL (2.5-4.9)
[2019-10-07 09:38] LABS: PLATELET 45 x1000/uL (130-400)
[2019-10-07] MEDS: METHYLPREDNISOLONE SOD SUCC 40 MG/ML VIAL IV SCH (10:06)
[2019-10-07] MEDS: SEVELAMER CARBONATE 800 MG TABLET PO SCH ×3 (10:06→17:50)
[2019-10-07] MEDS: GUAIFENESIN 600MG ER TABLET PO SCH ×2 (10:06→21:00)
[2019-10-07] MEDS: THIAMINE HCL 100MG TABLET PO SCH (16:21)
[2019-10-07] MEDS: FOLIC ACID/VITAMIN B COMP W-C TABLET PO SCH (16:22)
[2019-10-07] MEDS: IPRATROPIUM BROMIDE (0.02%) 0.5MG/2.5ML NEB HHN SCH ×3 (16:33→22:45)
[2019-10-07 19:49] LABS: PLATELET ESTIMATE MARKEDLY DECREASED
[2019-10-07 20:32] VITALS: BP 125/88
[2019-10-07] MEDS: DIPHENHYDRAMINE 50MG/ML VIAL IV PRN (21:14)
[2019-10-08] VITALS: BP 140/93
[2019-10-08] MEDS: IPRATROPIUM BROMIDE (0.02%) 0.5MG/2.5ML NEB HHN SCH ×3 (00:10→21:30)
[2019-10-08 04:00] VITALS: BP 162/96
[2019-10-08] MEDS: DILTIAZEM HCL 30MG TABLET PO SCH ×3 (05:49→21:33)
[2019-10-08 06:25] LABS: HEMATOCRIT. 22.9 % (42.0-52.0); HEMOGLOBIN. 7.3 g/dL (14.0-18.0); MEAN PLATELET VOLUME 11.5 fl (7.4-10.4); RED CELL DISTRIBUTION WIDTH 19.2 % (11.6-14.6)
[2019-10-08 06:27] LABS: PHOSPHORUS 5.6 mg/dL (2.5-4.9)
[2019-10-08 06:47] LABS: PLATELET 45 x1000/uL (130-400)
[2019-10-08] MEDS: BLOOD SUGAR DIAGNOSTIC STRIP TEST SCH ×4 (06:59→21:00)
[2019-10-08] MEDS: INSULIN LISPRO 100 UNITS/ML SUBCUT SCH ×4 (07:50→21:00)
[2019-10-08] MEDS: FOLIC ACID/VITAMIN B COMP W-C TABLET PO SCH (09:16)
[2019-10-08] MEDS: GUAIFENESIN 600MG ER TABLET PO SCH ×2 (09:16→21:33)
[2019-10-08] MEDS: SEVELAMER CARBONATE 800 MG TABLET PO SCH ×3 (09:16→17:50)
[2019-10-08] MEDS: THIAMINE HCL 100MG TABLET PO SCH (09:16)
[2019-10-08 12:00] VITALS: BP 128/95
[2019-10-08 16:11] LABS: PLATELET ESTIMATE MARKEDLY DECREASED
[2019-10-08 20:00] VITALS: BP 125/77
[2019-10-08] MEDS: DIPHENHYDRAMINE 50MG/ML VIAL IV PRN (23:14)
[2019-10-09] VITALS: BP 113/72
[2019-10-09] MEDS: IPRATROPIUM BROMIDE (0.02%) 0.5MG/2.5ML NEB HHN SCH ×4 (02:27→21:26)
[2019-10-09 04:00] VITALS: BP 126/77
[2019-10-09] MEDS: DILTIAZEM HCL 30MG TABLET PO SCH ×3 (05:41→21:10)
[2019-10-09] MEDS: BLOOD SUGAR DIAGNOSTIC STRIP TEST SCH ×4 (07:20→21:07)
[2019-10-09] MEDS: INSULIN LISPRO 100 UNITS/ML SUBCUT SCH ×4 (07:50→21:00)
[2019-10-09 08:00] VITALS: BP 138/84
[2019-10-09 10:08] LABS: HEMATOCRIT. 23.5 % (42.0-52.0); HEMOGLOBIN. 7.4 g/dL (14.0-18.0); MEAN CORPUSCULAR VOLUME 85.5 fL (80.0-94.0); MEAN PLATELET VOLUME 11.4 fl (7.4-10.4); RED BLOOD CELL COUNT 2.75 mill/uL (4.7-6.1); RED CELL DISTRIBUTION WIDTH 19.7 % (11.6-14.6)
[2019-10-09 10:25] LABS: PHOSPHORUS 4.6 mg/dL (2.5-4.9)
[2019-10-09 10:30] LABS: PLATELET 40 x1000/uL (130-400)
[2019-10-09] MEDS: SEVELAMER CARBONATE 800 MG TABLET PO SCH ×3 (10:40→17:50)
[2019-10-09] MEDS: THIAMINE HCL 100MG TABLET PO SCH (10:40)
[2019-10-09] MEDS: GUAIFENESIN 600MG ER TABLET PO SCH ×2 (10:40→21:07)
[2019-10-09] MEDS: FOLIC ACID/VITAMIN B COMP W-C TABLET PO SCH (10:40)
[2019-10-09 11:25] LABS: PLATELET ESTIMATE MARKEDLY DECREASED
[2019-10-09 12:00] VITALS: BP 127/66
[2019-10-09 12:29] LABS: HEPATITIS B SURFACE AB < 3.1 mIU/mL
[2019-10-09 12:40] LABS: HEPATITIS B SURFACE ANTIGEN NEGATIVE
[2019-10-09] MEDS: FERROUS SULFATE 325MG TABLET PO SCH (13:45)
[2019-10-09 16:00] VITALS: BP 119/79
[2019-10-09 20:00] VITALS: BP 90/54
[2019-10-10] VITALS (13 sets, daily range): BP systolic 89–130; BP diastolic 46–82
[2019-10-10] MEDS: IPRATROPIUM BROMIDE (0.02%) 0.5MG/2.5ML NEB HHN SCH ×4 (03:15→20:34)
[2019-10-10] MEDS: DILTIAZEM HCL 30MG TABLET PO SCH (05:22)
[2019-10-10] MEDS: BLOOD SUGAR DIAGNOSTIC STRIP TEST SCH ×3 (06:28→17:50)
[2019-10-10 07:14] LABS: HEMATOCRIT. 25.4 % (42.0-52.0); HEMOGLOBIN. 8.3 g/dL (14.0-18.0); MEAN CORPUSCULAR VOLUME 85.7 fL (80.0-94.0); MEAN PLATELET VOLUME 11.8 fl (7.4-10.4); RED BLOOD CELL COUNT 2.96 mill/uL (4.7-6.1); RED CELL DISTRIBUTION WIDTH 20.1 % (11.6-14.6)
[2019-10-10] MEDS: INSULIN LISPRO 100 UNITS/ML SUBCUT SCH ×3 (07:50→18:20)
[2019-10-10 07:51] LABS: PLATELET 42 x1000/uL (130-400)
[2019-10-10 07:52] LABS: PHOSPHORUS 4.9 mg/dL (2.5-4.9)
[2019-10-10 10:07] LABS: PLATELET ESTIMATE MARKEDLY DECREASED
[2019-10-10] MEDS: THIAMINE HCL 100MG TABLET PO SCH (10:26)
[2019-10-10] MEDS: FOLIC ACID/VITAMIN B COMP W-C TABLET PO SCH (10:26)
[2019-10-10] MEDS: FERROUS SULFATE 325MG TABLET PO SCH (10:26)
[2019-10-10] MEDS: SEVELAMER CARBONATE 800 MG TABLET PO SCH ×2 (10:27→12:50)
[2019-10-10] MEDS: GUAIFENESIN 600MG ER TABLET PO SCH (10:31)
[2019-10-10] MEDS ORDERED: NOREPINEPHRINE 4MG/250ML PMX 250 ML IV SCH (16:15)
[2019-10-10] MEDS ORDERED: DEXTROSE 50% WATER 50ML SYRINGE IV PRN ×2 (16:30→19:15)
[2019-10-10] MEDS ORDERED: FENTANYL CITRATE/PF 500 MCG in SODIUM CHLORIDE 0.9% 40 ML IV PRN (16:30)
[2019-10-10 17:05] LABS: BG BASE EXCESS -8.1 mmol/L (-2.0-2.0); BG CARBOXYHEMOGLOBIN 0.6 % (0.5-1.5); BG DEOXYHEMOGLOBIN 0.5 % (0.0-5.0); BG FRACTION INSPIRED OXYGEN 100; BG HCO3 ACT 17.2 mmol/L (22.0-26.0); BG METHEMOGLOBIN 0.2 % (0.0-1.5); BG OXYGEN SATURATION 99.5 % (92.0-98.5); BG OXYHEMOGLOBIN 98.7 % (94.0-97.0); BG PCO2 34.2 mmHg (35.0-45.0); BG PH 7.319 (7.350-7.450); BG PO2 270.7 mmHg (75.0-100.0); BG SAMPLE SITE RIGHT FEMORAL; BG TIDAL VOLUME(mL) 500 mL; BG TOTAL HEMOGLOBIN 9.7 g/dL (12.0-18.0); BG VENT MODE VENT - A/C; BG VENT RATE 16 set
[2019-10-10] MEDS: NOREPINEPHRINE 32 MG in DEXT 5% WATER 468 ML IV PRN ×2 (17:06→19:05)
[2019-10-10] MEDS: DEXT 5%/0.45% NACL 1000ML 1,000 ML IV SCH ×2 (17:17→23:32)
[2019-10-10] MEDS: PHENYLEPHRINE 40 MG in DEXT 5% WATER 246 ML IV PRN ×2 (17:22→19:04)
[2019-10-10] MEDS ORDERED: SODIUM BICARBONATE 8.4% 1 MEQ/ML 50ML SYR IV SCH (20:30)
[2019-10-10] MEDS ORDERED: SODIUM CHLORIDE 0.9% 1,000 ML IV SCH (20:30)
[2019-10-10] MEDS: MIDAZOLAM HCL 50 MG in DEXTROSE 5% WATER 40 ML IV PRN (20:37)
[2019-10-10] MEDS ORDERED: PHENYLEPHRINE 80 MG in DEXT 5% WATER 492 ML IV PRN (22:45)
[2019-10-10] MEDS ORDERED: ALBUMIN HUMAN 12.5G/250ML (5%) IV NR (23:30)
[2019-10-11] VITALS (108 sets, daily range): BP systolic 64–140; BP diastolic 24–86
[2019-10-11] MEDS: IPRATROPIUM BROMIDE (0.02%) 0.5MG/2.5ML NEB HHN SCH ×4 (01:55→20:49)
[2019-10-11] MEDS: BLOOD SUGAR DIAGNOSTIC STRIP TEST SCH ×4 (06:00→17:45)
[2019-10-11] MEDS: MIDAZOLAM HCL 50 MG in DEXTROSE 5% WATER 40 ML IV PRN (08:20)
[2019-10-11] MEDS: INSULIN LISPRO 100 UNITS/ML SUBCUT SCH ×5 (08:20→21:00)
[2019-10-11 08:58] LABS: BG CARBOXYHEMOGLOBIN 0.4 % (0.5-1.5); BG FRACTION INSPIRED OXYGEN 60; BG HCO3 ACT 19.2 mmol/L (22.0-26.0); BG METHEMOGLOBIN 0.1 % (0.0-1.5); BG OXYHEMOGLOBIN 98.5 % (94.0-97.0); BG PCO2 28.6 mmHg (35.0-45.0); BG PH 7.445 (7.350-7.450); BG PO2 201.7 mmHg (75.0-100.0); BG SAMPLE SITE RIGHT BRACHIAL; BG TIDAL VOLUME(mL) 500 mL; BG TOTAL HEMOGLOBIN 9.6 g/dL (12.0-18.0); BG VENT MODE VENT - A/C; BG VENT RATE 16 set
[2019-10-11] MEDS: FOLIC ACID/VITAMIN B COMP W-C TABLET PO SCH (09:09)
[2019-10-11 10:14] LABS: HEMOGLOBIN. 9.8 g/dL (14.0-18.0); MEAN CORPUSCULAR HEMOGLOBIN 27.1 pg (28.0-32.0); MEAN CORPUSCULAR VOLUME 85.8 fL (80.0-94.0); MEAN PLATELET VOLUME 12.4 fl (7.4-10.4); RED BLOOD CELL COUNT 3.62 mill/uL (4.7-6.1); RED CELL DISTRIBUTION WIDTH 20.4 % (11.6-14.6)
[2019-10-11 10:18] LABS: PLATELET 46 x1000/uL (130-400)
[2019-10-11 10:26] LABS: PHOSPHORUS 5.8 mg/dL (2.5-4.9)
[2019-10-11 10:35] LABS: NUCLEATED RED BLOOD CELLS 1 /100 WBC; PLATELET ESTIMATE MARKEDLY DECREASED
[2019-10-11] MEDS: VASOPRESSIN 10 UNIT in SODIUM CHLORIDE 0.9% 99.5 ML IV PRN ×4 (10:57→22:42)
[2019-10-11] MEDS: DOBUTAMINE HCL IN DEXTROSE 5 % 250 ML IV SCH (11:06)
[2019-10-11] MEDS ORDERED: CEFEPIME 1,000 MG in DEXTROSE 5% WATER 50 ML IV SCH (11:15)
[2019-10-11] MEDS ORDERED: EPINEPHRINE 4 MG in SODIUM CHLORIDE 0.9% 246 ML IV PRN (12:00)
[2019-10-11] MEDS ORDERED: BISACODYL 10MG SUPP PR SCH (12:00)
[2019-10-11] MEDS: NOREPINEPHRINE 32 MG in DEXT 5% WATER 468 ML IV PRN (12:01)
[2019-10-11] MEDS: PHENYLEPHRINE 80 MG in DEXT 5% WATER 492 ML IV PRN ×2 (12:01→19:04)
[2019-10-11] MEDS: CEFEPIME 1,000 MG in DEXTROSE 5% WATER 50 ML IV SCH (13:42)
[2019-10-11 14:17] LABS: BG BASE EXCESS -5.7 mmol/L (-2.0-2.0); BG CARBOXYHEMOGLOBIN 0.4 % (0.5-1.5); BG DEOXYHEMOGLOBIN 1.3 % (0.0-5.0); BG FRACTION INSPIRED OXYGEN 60; BG HCO3 ACT 17.5 mmol/L (22.0-26.0); BG METHEMOGLOBIN 0.3 % (0.0-1.5); BG OXYGEN SATURATION 98.7 % (92.0-98.5); BG PCO2 26.6 mmHg (35.0-45.0); BG PH 7.436 (7.350-7.450); BG PO2 146.3 mmHg (75.0-100.0); BG SAMPLE SITE RIGHT RADIAL; BG TIDAL VOLUME(mL) 600 mL; BG TOTAL HEMOGLOBIN 9.2 g/dL (12.0-18.0); BG VENT MODE VENT - A/C; BG VENT RATE 16 set
[2019-10-11] MEDS ORDERED: VANCOMYCIN 1500MG in DEXTROSE 5% WATER 250ML IV SCH (15:00)
[2019-10-11] MEDS: DEXT 5%/0.45% NACL 1000ML 1,000 ML IV SCH (17:52)
[2019-10-11] MEDS: METRONIDAZOLE 500 MG PREMIX 100 ML IV SCH (17:53)
[2019-10-11] MEDS ORDERED: AMIKACIN 500MG in SODIUM CHLORIDE 0.9% 100ML IV SCH (20:00)
[2019-10-12] VITALS (93 sets, daily range): BP systolic 83–134; BP diastolic 50–84
[2019-10-12] MEDS: BLOOD SUGAR DIAGNOSTIC STRIP TEST SCH ×4 (00:13→17:15)
[2019-10-12] MEDS: METRONIDAZOLE 500 MG PREMIX 100 ML IV SCH ×3 (02:08→17:15)
[2019-10-12] MEDS: IPRATROPIUM BROMIDE (0.02%) 0.5MG/2.5ML NEB HHN SCH ×4 (02:30→21:14)
[2019-10-12] MEDS: PHENYLEPHRINE 80 MG in DEXT 5% WATER 492 ML IV PRN ×3 (03:42→19:41)
[2019-10-12 05:47] LABS: HEMATOCRIT. 26.2 % (42.0-52.0); HEMOGLOBIN. 8.3 g/dL (14.0-18.0); MEAN CORPUSCULAR HEMOGLOBIN 26.9 pg (28.0-32.0); MEAN CORPUSCULAR VOLUME 84.6 fL (80.0-94.0); MEAN PLATELET VOLUME 13.8 fl (7.4-10.4); RED CELL DISTRIBUTION WIDTH 19.7 % (11.6-14.6)
[2019-10-12 05:56] LABS: CHLORIDE 95 mEq/L (98-107)
[2019-10-12 06:00] LABS: PLATELET 42 x1000/uL (130-400)
[2019-10-12] MEDS: NOREPINEPHRINE 32 MG in DEXT 5% WATER 468 ML IV PRN ×2 (07:48→17:20)
[2019-10-12 07:52] LABS: BG BASE EXCESS -8.2 mmol/L (-2.0-2.0); BG CARBOXYHEMOGLOBIN 0.5 % (0.5-1.5); BG DEOXYHEMOGLOBIN 1.1 % (0.0-5.0); BG FRACTION INSPIRED OXYGEN 60; BG HCO3 ACT 14.8 mmol/L (22.0-26.0); BG METHEMOGLOBIN 0.1 % (0.0-1.5); BG OXYGEN SATURATION 98.9 % (92.0-98.5); BG OXYHEMOGLOBIN 98.3 % (94.0-97.0); BG PH 7.427 (7.350-7.450); BG PO2 164.2 mmHg (75.0-100.0); BG SAMPLE SITE RIGHT BRACHIAL; BG TIDAL VOLUME(mL) 600 mL; BG VENT MODE VENT - A/C; BG VENT RATE 16 set
[2019-10-12] MEDS: INSULIN LISPRO 100 UNITS/ML SUBCUT SCH ×4 (08:00→21:00)
[2019-10-12] MEDS: FOLIC ACID/VITAMIN B COMP W-C TABLET PO SCH (09:44)
[2019-10-12] MEDS ORDERED: MAGNESIUM 2 G PREMIX 50 ML IV SCH (11:30)
[2019-10-12 11:40] LABS: NUCLEATED RED BLOOD CELLS 1 /100 WBC
[2019-10-12 11:41] LABS: PLATELET ESTIMATE MARKEDLY DECREASED
[2019-10-12] MEDS: DOBUTAMINE HCL IN DEXTROSE 5 % 250 ML IV SCH ×2 (11:59→19:45)
[2019-10-12] MEDS: DEXT 5%/0.45% NACL 1000ML 1,000 ML IV SCH (13:01)
[2019-10-12] MEDS: CEFEPIME 1,000 MG in DEXTROSE 5% WATER 50 ML IV SCH (16:14)
[2019-10-13] VITALS (101 sets, daily range): BP systolic 91–139; BP diastolic 60–93
[2019-10-13] MEDS: IPRATROPIUM BROMIDE (0.02%) 0.5MG/2.5ML NEB HHN SCH ×5 (00:52→20:58)
[2019-10-13] MEDS: PHENYLEPHRINE 80 MG in DEXT 5% WATER 492 ML IV PRN ×2 (02:51→09:15)
[2019-10-13] MEDS: METRONIDAZOLE 500 MG PREMIX 100 ML IV SCH ×2 (03:43→10:25)
[2019-10-13] MEDS: BLOOD SUGAR DIAGNOSTIC STRIP TEST SCH ×5 (05:12→23:55)
[2019-10-13] MEDS: INSULIN LISPRO 100 UNITS/ML SUBCUT SCH ×4 (05:12→21:00)
[2019-10-13] MEDS: DEXT 5%/0.45% NACL 1000ML 1,000 ML IV SCH (05:13)
[2019-10-13 08:01] LABS: CHLORIDE 95 mEq/L (98-107)
[2019-10-13 08:08] LABS: PHOSPHORUS 5.8 mg/dL (2.5-4.9)
[2019-10-13 08:16] LABS: BG BASE EXCESS -4.1 mmol/L (-2.0-2.0); BG DEOXYHEMOGLOBIN 0.8 % (0.0-5.0); BG FRACTION INSPIRED OXYGEN 50; BG HCO3 ACT 19.5 mmol/L (22.0-26.0); BG METHEMOGLOBIN 0.3 % (0.0-1.5); BG OXYGEN SATURATION 99.2 % (92.0-98.5); BG OXYHEMOGLOBIN 97.9 % (94.0-97.0); BG PCO2 29.5 mmHg (35.0-45.0); BG PH 7.437 (7.350-7.450); BG PO2 169.7 mmHg (75.0-100.0); BG SAMPLE SITE RIGHT RADIAL; BG TIDAL VOLUME(mL) 500 mL; BG TOTAL HEMOGLOBIN 8.2 g/dL (12.0-18.0); BG VENT MODE VENT - A/C; BG VENT RATE 16 set
[2019-10-13] MEDS ORDERED: MIDAZOLAM HCL 50 MG in SODIUM CHLORIDE 0.9% 40 ML IV PRN (08:39)
[2019-10-13] MEDS: PHENYLEPHRINE 80 MG in SODIUM CHLORIDE 0.9% 492 ML IV PRN ×2 (09:30→16:28)
[2019-10-13 09:39] LABS: BASOPHILS % 0.2 % (0.0-2.0); EOSINOPHILS % 0.1 % (0.0-5.0); HEMOGLOBIN. 8.3 g/dL (14.0-18.0); LYMPHOCYTES % 11.9 % (20.0-50.0); MEAN CORPUSCULAR VOLUME 84.5 fL (80.0-94.0); MEAN PLATELET VOLUME 11.1 fl (7.4-10.4); MONOCYTES % 1.6 % (2.0-8.0); NEUTROPHILS % 86.2 % (40.0-76.0); RED BLOOD CELL COUNT 3.07 mill/uL (4.7-6.1)
[2019-10-13 09:46] LABS: PLATELET 23 x1000/uL (130-400)
[2019-10-13] MEDS ORDERED: SODIUM BICARBONATE 5MEQ SYR 150 MEQ in DEXTROSE 5% WATER 1,000 ML IV SCH (10:00)
[2019-10-13] MEDS: NOREPINEPHRINE 32 MG in SODIUM CHLORIDE 0.9% 468 ML IV PRN (10:12)
[2019-10-13] MEDS: FOLIC ACID/VITAMIN B COMP W-C TABLET PO SCH (10:25)
[2019-10-13] MEDS: SODIUM BICARBONATE 150 MEQ in DEXTROSE 5% WATER 1,000 ML IV SCH (11:05)
[2019-10-13] MEDS ORDERED: VANCOMYCIN 1500MG in DEXTROSE 5% WATER 250ML IV NR (13:00)
[2019-10-13] MEDS: CEFEPIME 1,000 MG in DEXTROSE 5% WATER 50 ML IV SCH (14:50)
[2019-10-13] MEDS ORDERED: DIGOXIN 500MCG/2ML AMP IV SCH ×2 (15:20→18:00)
[2019-10-13] MEDS: MEROPENEM 1,000 MG in SODIUM CHLORIDE 0.9% 100 ML IV SCH (20:17)
[2019-10-14] VITALS (70 sets, daily range): BP systolic 75–131; BP diastolic 46–83
[2019-10-14] MEDS: PHENYLEPHRINE 80 MG in SODIUM CHLORIDE 0.9% 492 ML IV PRN ×3 (00:40→16:56)
[2019-10-14] MEDS: IPRATROPIUM BROMIDE (0.02%) 0.5MG/2.5ML NEB HHN SCH ×4 (01:22→20:53)
[2019-10-14] MEDS: BLOOD SUGAR DIAGNOSTIC STRIP TEST SCH ×3 (06:00→17:50)
[2019-10-14 07:53] LABS: HIV SCREEN 4G Non Reactive (Non Reactive)
[2019-10-14] MEDS: INSULIN LISPRO 100 UNITS/ML SUBCUT SCH ×4 (08:20→21:00)
[2019-10-14 08:45] LABS: BG BASE EXCESS 0.5 mmol/L (-2.0-2.0); BG CARBOXYHEMOGLOBIN 0.9 % (0.5-1.5); BG DEOXYHEMOGLOBIN 1.2 % (0.0-5.0); BG FRACTION INSPIRED OXYGEN 50; BG HCO3 ACT 23.8 mmol/L (22.0-26.0); BG METHEMOGLOBIN 0.3 % (0.0-1.5); BG OXYGEN SATURATION 98.8 % (92.0-98.5); BG OXYHEMOGLOBIN 97.6 % (94.0-97.0); BG PCO2 32.9 mmHg (35.0-45.0); BG PH 7.478 (7.350-7.450); BG PO2 141.3 mmHg (75.0-100.0); BG SAMPLE SITE RIGHT RADIAL; BG TIDAL VOLUME(mL) 500 mL; BG TOTAL HEMOGLOBIN 8.3 g/dL (12.0-18.0); BG VENT MODE VENT - A/C; BG VENT RATE 16 set
[2019-10-14 08:55] LABS: CHLORIDE 100 mEq/L (98-107)
[2019-10-14 09:10] LABS: PHOSPHORUS 5.2 mg/dL (2.5-4.9)
[2019-10-14] MEDS: FOLIC ACID/VITAMIN B COMP W-C TABLET PO SCH (09:53)
[2019-10-14] MEDS: MEROPENEM 1,000 MG in SODIUM CHLORIDE 0.9% 100 ML IV SCH ×2 (09:53→21:38)
[2019-10-14] MEDS: SODIUM BICARBONATE 150 MEQ in DEXTROSE 5% WATER 1,000 ML IV SCH (09:55)
[2019-10-14] MEDS: NOREPINEPHRINE 32 MG in SODIUM CHLORIDE 0.9% 468 ML IV PRN (10:29)
[2019-10-14] MEDS: DIGOXIN 500MCG/2ML AMP IV SCH ×2 (10:30→17:08)
[2019-10-14] MEDS: MORPHINE SULFATE 2 MG/ML CPJ (NOT FOR IM USE) IV PRN (12:57)
[2019-10-14 13:13] LABS: HEMATOCRIT. 23.9 % (42.0-52.0); HEMOGLOBIN. 7.6 g/dL (14.0-18.0); MEAN CORPUSCULAR HEMOGLOBIN 27.3 pg (28.0-32.0); MEAN CORPUSCULAR VOLUME 85.7 fL (80.0-94.0); RED BLOOD CELL COUNT 2.79 mill/uL (4.7-6.1)
[2019-10-14 13:20] LABS: PLATELET 33 x1000/uL (130-400)
[2019-10-14 16:54] LABS: PLATELET ESTIMATE MARKEDLY DECREASED
[2019-10-15] VITALS (132 sets, daily range): BP systolic 73–123; BP diastolic 36–81
[2019-10-15] MEDS: BLOOD SUGAR DIAGNOSTIC STRIP TEST SCH ×4 (00:14→18:00)
[2019-10-15] MEDS: PHENYLEPHRINE 80 MG in SODIUM CHLORIDE 0.9% 492 ML IV PRN ×3 (00:39→15:35)
[2019-10-15] MEDS: IPRATROPIUM BROMIDE (0.02%) 0.5MG/2.5ML NEB HHN SCH ×4 (02:07→20:13)
[2019-10-15 05:35] LABS: HEMATOCRIT. 23.4 % (42.0-52.0); HEMOGLOBIN. 7.6 g/dL (14.0-18.0); MEAN CORPUSCULAR HEMOGLOBIN 27.4 pg (28.0-32.0); MEAN CORPUSCULAR VOLUME 84.9 fL (80.0-94.0); MEAN PLATELET VOLUME 11.4 fl (7.4-10.4); RED BLOOD CELL COUNT 2.76 mill/uL (4.7-6.1); RED CELL DISTRIBUTION WIDTH 20.5 % (11.6-14.6)
[2019-10-15 05:55] LABS: PLATELET 20 x1000/uL (130-400)
[2019-10-15] MEDS: INSULIN LISPRO 100 UNITS/ML SUBCUT SCH ×2 (08:20→18:00)
[2019-10-15] MEDS: MEROPENEM 1,000 MG in SODIUM CHLORIDE 0.9% 100 ML IV SCH ×2 (08:21→20:52)
[2019-10-15] MEDS: FOLIC ACID/VITAMIN B COMP W-C TABLET PO SCH (08:22)
[2019-10-15 08:43] LABS: BG BASE EXCESS -0.9 mmol/L (-2.0-2.0); BG CARBOXYHEMOGLOBIN 1.2 % (0.5-1.5); BG DEOXYHEMOGLOBIN 1.8 % (0.0-5.0); BG FRACTION INSPIRED OXYGEN 35; BG HCO3 ACT 22.2 mmol/L (22.0-26.0); BG METHEMOGLOBIN 0.3 % (0.0-1.5); BG OXYGEN SATURATION 98.2 % (92.0-98.5); BG OXYHEMOGLOBIN 96.7 % (94.0-97.0); BG PH 7.487 (7.350-7.450); BG PO2 123.2 mmHg (75.0-100.0); BG SAMPLE SITE RIGHT RADIAL; BG TIDAL VOLUME(mL) 500 mL; BG TOTAL HEMOGLOBIN 7.5 g/dL (12.0-18.0); BG VENT MODE VENT - A/C; BG VENT RATE 16 set
[2019-10-15] MEDS: DEXTROSE 50% WATER 50ML SYRINGE IV PRN (08:48)
[2019-10-15 08:57] LABS: PLATELET ESTIMATE MARKEDLY DECREASED
[2019-10-15] MEDS: MORPHINE SULFATE 2 MG/ML CPJ (NOT FOR IM USE) IV PRN (11:11)
[2019-10-15] MEDS: SODIUM CHLORIDE 23.4% 154 MEQ in DEXT 10% WATER 1,000 ML IV SCH (13:14)
[2019-10-15] MEDS: DILTIAZEM HCL 125 MG in DEXT 5% WATER 100 ML IV PRN (13:26)
[2019-10-15] MEDS: LORAZEPAM 2MG/ML CPJ IV PRN (14:51)
[2019-10-15] MEDS ORDERED: VANCOMYCIN 1500MG in DEXTROSE 5% WATER 250ML IV NR (16:00)
[2019-10-15] MEDS: DIGOXIN 500MCG/2ML AMP IV SCH (18:26)
[2019-10-16] VITALS (91 sets, daily range): BP systolic 74–127; BP diastolic 40–76
[2019-10-16] MEDS: PHENYLEPHRINE 80 MG in SODIUM CHLORIDE 0.9% 492 ML IV PRN ×4 (00:03→23:49)
[2019-10-16] MEDS: BLOOD SUGAR DIAGNOSTIC STRIP TEST SCH ×5 (00:22→23:50)
[2019-10-16] MEDS: IPRATROPIUM BROMIDE (0.02%) 0.5MG/2.5ML NEB HHN SCH ×4 (02:10→20:28)
[2019-10-16] MEDS ORDERED: NOREPINEPHRINE 16 MG in SODIUM CHLORIDE 0.9% 234 ML IV PRN (05:30)
[2019-10-16 05:33] LABS: CHLORIDE 107 mEq/L (98-107)
[2019-10-16 05:39] LABS: HEMATOCRIT. 22.3 % (42.0-52.0); HEMOGLOBIN. 7.1 g/dL (14.0-18.0); MEAN CORPUSCULAR HEMOGLOBIN 27.6 pg (28.0-32.0); MEAN CORPUSCULAR VOLUME 86.5 fL (80.0-94.0); MEAN PLATELET VOLUME 11.2 fl (7.4-10.4); RED BLOOD CELL COUNT 2.57 mill/uL (4.7-6.1); RED CELL DISTRIBUTION WIDTH 21.1 % (11.6-14.6)
[2019-10-16] MEDS: INSULIN LISPRO 100 UNITS/ML SUBCUT SCH ×4 (06:00→18:00)
[2019-10-16 06:16] LABS: PLATELET 20 x1000/uL (130-400)
[2019-10-16] MEDS: DILTIAZEM HCL 125 MG in DEXT 5% WATER 100 ML IV PRN (07:04)
[2019-10-16 07:49] LABS: BG BASE EXCESS 0.2 mmol/L (-2.0-2.0); BG CARBOXYHEMOGLOBIN 1.6 % (0.5-1.5); BG DEOXYHEMOGLOBIN 2.2 % (0.0-5.0); BG FRACTION INSPIRED OXYGEN 35; BG METHEMOGLOBIN 0.2 % (0.0-1.5); BG OXYGEN SATURATION 97.8 % (92.0-98.5); BG PCO2 34.5 mmHg (35.0-45.0); BG PO2 108.9 mmHg (75.0-100.0); BG SAMPLE SITE RIGHT BRACHIAL; BG TIDAL VOLUME(mL) 500 mL; BG TOTAL HEMOGLOBIN 6.9 g/dL (12.0-18.0); BG VENT MODE VENT - A/C; BG VENT RATE 14 set
[2019-10-16 08:00] LABS: NUCLEATED RED BLOOD CELLS 1 /100 WBC; PLATELET ESTIMATE MARKEDLY DECREASED
[2019-10-16] MEDS: MEROPENEM 1,000 MG in SODIUM CHLORIDE 0.9% 100 ML IV SCH ×2 (09:21→21:15)
[2019-10-16] MEDS: FOLIC ACID/VITAMIN B COMP W-C TABLET PO SCH (09:22)
[2019-10-16] MEDS ORDERED: NOREPINEPHRINE 16 MG in DEXT 5% WATER 234 ML IV PRN (09:30)
[2019-10-16] MEDS: SODIUM CHLORIDE 23.4% 154 MEQ in DEXT 10% WATER 1,000 ML IV SCH (17:01)
[2019-10-16] MEDS: DIGOXIN 500MCG/2ML AMP IV SCH (18:00)
[2019-10-17] VITALS (55 sets, daily range): BP systolic 91–121; BP diastolic 43–78
[2019-10-17] MEDS: NOREPINEPHRINE 16 MG in DEXTROSE 5% WATER 250 ML IV PRN (00:21)
[2019-10-17] MEDS: IPRATROPIUM BROMIDE (0.02%) 0.5MG/2.5ML NEB HHN SCH ×4 (04:26→20:47)
[2019-10-17 05:33] LABS: PHOSPHORUS 5.3 mg/dL (2.5-4.9)
[2019-10-17 05:40] LABS: HEMATOCRIT. 22.4 % (42.0-52.0); HEMOGLOBIN. 7.1 g/dL (14.0-18.0); MEAN CORPUSCULAR HEMOGLOBIN 27.4 pg (28.0-32.0); MEAN CORPUSCULAR VOLUME 86.9 fL (80.0-94.0); MEAN PLATELET VOLUME 11.2 fl (7.4-10.4); RED BLOOD CELL COUNT 2.57 mill/uL (4.7-6.1); RED CELL DISTRIBUTION WIDTH 20.9 % (11.6-14.6)
[2019-10-17 05:51] LABS: DIGOXIN 2.3 ng/mL (0.9-2.0)
[2019-10-17] MEDS: INSULIN LISPRO 100 UNITS/ML SUBCUT SCH ×4 (06:00→17:22)
[2019-10-17] MEDS: BLOOD SUGAR DIAGNOSTIC STRIP TEST SCH ×3 (06:03→17:21)
[2019-10-17 07:57] LABS: BG BASE EXCESS -4.7 mmol/L (-2.0-2.0); BG DEOXYHEMOGLOBIN 4.5 % (0.0-5.0); BG FRACTION INSPIRED OXYGEN 35; BG HCO3 ACT 19.7 mmol/L (22.0-26.0); BG METHEMOGLOBIN 0.4 % (0.0-1.5); BG OXYGEN SATURATION 95.4 % (92.0-98.5); BG OXYHEMOGLOBIN 94.1 % (94.0-97.0); BG PCO2 33.1 mmHg (35.0-45.0); BG PH 7.393 (7.350-7.450); BG PO2 85.4 mmHg (75.0-100.0); BG SAMPLE SITE RIGHT BRACHIAL; BG TIDAL VOLUME(mL) 500 mL; BG TOTAL HEMOGLOBIN 6.9 g/dL (12.0-18.0); BG VENT MODE VENT - A/C; BG VENT RATE 14 set
[2019-10-17 08:16] LABS: PLATELET ESTIMATE MARKEDLY DECREASED
[2019-10-17 08:31] LABS: PLATELET 18 x1000/uL (130-400)
[2019-10-17] MEDS: MEROPENEM 1,000 MG in SODIUM CHLORIDE 0.9% 100 ML IV SCH ×2 (09:35→20:48)
[2019-10-17] MEDS: FOLIC ACID/VITAMIN B COMP W-C TABLET PO SCH (09:36)
[2019-10-17] MEDS: SODIUM CHLORIDE 23.4% 154 MEQ in DEXT 10% WATER 1,000 ML IV SCH (13:56)
[2019-10-17] MEDS ORDERED: VANCOMYCIN 1250MG in DEXTROSE 5% WATER 250ML IV NR (21:00)
[2019-10-17] MEDS: PHENYLEPHRINE 80 MG in SODIUM CHLORIDE 0.9% 492 ML IV PRN (23:07)
[2019-10-18] VITALS (56 sets, daily range): BP systolic 63–136; BP diastolic 19–91
[2019-10-18] MEDS: BLOOD SUGAR DIAGNOSTIC STRIP TEST SCH ×4 (00:08→18:48)
[2019-10-18] MEDS: NOREPINEPHRINE 16 MG in DEXTROSE 5% WATER 250 ML IV PRN (01:05)
[2019-10-18] MEDS: IPRATROPIUM BROMIDE (0.02%) 0.5MG/2.5ML NEB HHN SCH ×4 (01:34→21:09)
[2019-10-18 05:56] LABS: BASOPHILS % 0.4 % (0.0-2.0); EOSINOPHILS % 0.1 % (0.0-5.0); HEMATOCRIT. 25.7 % (42.0-52.0); HEMOGLOBIN. 7.9 g/dL (14.0-18.0); LYMPHOCYTES % 7.1 % (20.0-50.0); MEAN CORPUSCULAR HEMOGLOBIN 27.4 pg (28.0-32.0); MEAN CORPUSCULAR VOLUME 89.4 fL (80.0-94.0); MEAN PLATELET VOLUME 11.4 fl (7.4-10.4); MONOCYTES % 4.1 % (2.0-8.0); NEUTROPHILS % 88.3 % (40.0-76.0); RED BLOOD CELL COUNT 2.88 mill/uL (4.7-6.1); RED CELL DISTRIBUTION WIDTH 20.6 % (11.6-14.6)
[2019-10-18] MEDS: INSULIN LISPRO 100 UNITS/ML SUBCUT SCH ×4 (06:00→18:00)
[2019-10-18 06:29] LABS: PLATELET 20 x1000/uL (130-400)
[2019-10-18] MEDS: PHENYLEPHRINE 80 MG in SODIUM CHLORIDE 0.9% 492 ML IV PRN (07:38)
[2019-10-18] MEDS: MEROPENEM 1,000 MG in SODIUM CHLORIDE 0.9% 100 ML IV SCH ×2 (09:00→20:24)
[2019-10-18] MEDS: FOLIC ACID/VITAMIN B COMP W-C TABLET PO SCH (09:54)
[2019-10-18] MEDS: SODIUM CHLORIDE 23.4% 154 MEQ in DEXT 10% WATER 1,000 ML IV SCH (15:54)
[2019-10-18] MEDS: DIPHENHYDRAMINE 50MG/ML VIAL IV PRN (19:52)
[2019-10-18] MEDS: MORPHINE SULFATE 2 MG/ML CPJ (NOT FOR IM USE) IV PRN (19:52)
[2019-10-18] MEDS: LORAZEPAM 2MG/ML CPJ IV PRN (22:25)
[2019-10-19] VITALS (99 sets, daily range): BP systolic 66–118; BP diastolic 37–77
[2019-10-19] MEDS: PHENYLEPHRINE 80 MG in SODIUM CHLORIDE 0.9% 492 ML IV PRN ×4 (01:17→19:41)
[2019-10-19] MEDS: IPRATROPIUM BROMIDE (0.02%) 0.5MG/2.5ML NEB HHN SCH ×4 (01:49→20:55)
[2019-10-19 04:42] LABS: BASOPHILS % 0.4 % (0.0-2.0); EOSINOPHILS % 0.3 % (0.0-5.0); HEMATOCRIT. 25.2 % (42.0-52.0); HEMOGLOBIN. 7.7 g/dL (14.0-18.0); LYMPHOCYTES % 7.9 % (20.0-50.0); MEAN CORPUSCULAR HEMOGLOBIN 27.4 pg (28.0-32.0); MEAN CORPUSCULAR VOLUME 90.2 fL (80.0-94.0); MEAN PLATELET VOLUME 11.5 fl (7.4-10.4); MONOCYTES % 4.7 % (2.0-8.0); NEUTROPHILS % 86.7 % (40.0-76.0); RED CELL DISTRIBUTION WIDTH 21.9 % (11.6-14.6)
[2019-10-19 04:46] LABS: CHLORIDE 108 mEq/L (98-107)
[2019-10-19 04:53] LABS: PHOSPHORUS 5.5 mg/dL (2.5-4.9)
[2019-10-19 05:06] LABS: PLATELET 18 x1000/uL (130-400)
[2019-10-19] MEDS: INSULIN LISPRO 100 UNITS/ML SUBCUT SCH ×4 (06:00→17:46)
[2019-10-19] MEDS: NOREPINEPHRINE 16 MG in DEXTROSE 5% WATER 250 ML IV PRN ×2 (06:14→13:09)
[2019-10-19] MEDS: BLOOD SUGAR DIAGNOSTIC STRIP TEST SCH ×4 (06:15→17:46)
[2019-10-19] MEDS: SODIUM CHLORIDE 23.4% 154 MEQ in DEXT 10% WATER 1,000 ML IV SCH (06:15)
[2019-10-19] MEDS: MEROPENEM 1,000 MG in SODIUM CHLORIDE 0.9% 100 ML IV SCH ×2 (08:50→20:05)
[2019-10-19 09:15] LABS: BG BASE EXCESS -4.5 mmol/L (-2.0-2.0); BG CARBOXYHEMOGLOBIN 1.4 % (0.5-1.5); BG DEOXYHEMOGLOBIN 1.1 % (0.0-5.0); BG FRACTION INSPIRED OXYGEN 35; BG HCO3 ACT 19.3 mmol/L (22.0-26.0); BG OXYGEN SATURATION 98.9 % (92.0-98.5); BG OXYHEMOGLOBIN 97.5 % (94.0-97.0); BG PCO2 30.5 mmHg (35.0-45.0); BG PO2 149.3 mmHg (75.0-100.0); BG SAMPLE SITE RIGHT RADIAL; BG TIDAL VOLUME(mL) 500 mL; BG TOTAL HEMOGLOBIN 7.6 g/dL (12.0-18.0); BG VENT MODE VENT - A/C; BG VENT RATE 14 set
[2019-10-20] VITALS (60 sets, daily range): BP systolic 80–132; BP diastolic 40–83
[2019-10-20] MEDS: BLOOD SUGAR DIAGNOSTIC STRIP TEST SCH ×4 (00:14→18:00)
[2019-10-20] MEDS: LORAZEPAM 2MG/ML CPJ IV PRN (00:37)
[2019-10-20] MEDS: IPRATROPIUM BROMIDE (0.02%) 0.5MG/2.5ML NEB HHN SCH ×4 (02:37→20:30)
[2019-10-20] MEDS: PHENYLEPHRINE 80 MG in SODIUM CHLORIDE 0.9% 492 ML IV PRN ×2 (04:25→10:44)
[2019-10-20 05:57] LABS: BASOPHILS % 0.2 % (0.0-2.0); EOSINOPHILS % 0.3 % (0.0-5.0); HEMATOCRIT. 22.6 % (42.0-52.0); LYMPHOCYTES % 8.5 % (20.0-50.0); MEAN CORPUSCULAR HEMOGLOBIN 27.7 pg (28.0-32.0); MEAN CORPUSCULAR VOLUME 90.6 fL (80.0-94.0); MEAN PLATELET VOLUME 11.4 fl (7.4-10.4); RED CELL DISTRIBUTION WIDTH 22.3 % (11.6-14.6)
[2019-10-20] MEDS: INSULIN LISPRO 100 UNITS/ML SUBCUT SCH ×4 (06:00→18:00)
[2019-10-20 06:14] LABS: HEMOGLOBIN. 6.9 g/dL (14.0-18.0); PLATELET 16 x1000/uL (130-400)
[2019-10-20] MEDS: SODIUM CHLORIDE 23.4% 154 MEQ in DEXT 10% WATER 1,000 ML IV SCH (06:59)
[2019-10-20] MEDS: MEROPENEM 1,000 MG in SODIUM CHLORIDE 0.9% 100 ML IV SCH ×2 (08:54→23:41)
[2019-10-20 10:15] LABS: BG CARBOXYHEMOGLOBIN 1.1 % (0.5-1.5); BG DEOXYHEMOGLOBIN 2.9 % (0.0-5.0); BG FRACTION INSPIRED OXYGEN 35; BG HCO3 ACT 19.3 mmol/L (22.0-26.0); BG METHEMOGLOBIN 0.4 % (0.0-1.5); BG OXYGEN SATURATION 97.1 % (92.0-98.5); BG OXYHEMOGLOBIN 95.6 % (94.0-97.0); BG PCO2 32.2 mmHg (35.0-45.0); BG PH 7.395 (7.350-7.450); BG PO2 97.9 mmHg (75.0-100.0); BG SAMPLE SITE RIGHT RADIAL; BG TIDAL VOLUME(mL) 500 mL; BG TOTAL HEMOGLOBIN 7.5 g/dL (12.0-18.0); BG VENT MODE VENT - A/C; BG VENT RATE 12 set
[2019-10-20] MEDS ORDERED: LIDOCAINE HCL 1% 20ML VIAL (Pyxis) INJ ONE (13:57)
[2019-10-20] MEDS ORDERED: SODIUM BICARBONATE 4% (2.4MEQ) 5ML VIAL IV ONE (13:58)
[2019-10-20] MEDS: DEXTROSE 50% WATER 50ML SYRINGE IV PRN (13:59)
[2019-10-20] MEDS ORDERED: ROCURONIUM BROMIDE 10MG/ML VIAL 5ML IV ONE ×2 (19:55→21:00)
[2019-10-20] MEDS ORDERED: MIDAZOLAM HCL 2 MG/2 ML VIAL ONE ×3 (19:58→21:17)
[2019-10-20] MEDS ORDERED: ALBUMIN HUMAN 12.5G/250ML (5%) IV ONE (20:36)
[2019-10-20] MEDS ORDERED: PHENYLEPHRINE HCL 10 MG/ML 1ML (IV VIAL) IV ONE (20:37)
[2019-10-20] MEDS ORDERED: SODIUM BICARBONATE 8.4% 1 MEQ/ML 50ML SYR IV ONE (20:46)
[2019-10-20] MEDS ORDERED: DEXAMETHASONE 4MG/ML 1ML VIAL ONE (21:21)
[2019-10-20] MEDS ORDERED: SODIUM CHLORIDE 0.9% 10ML VIAL ONE (21:33)
[2019-10-20 23:21] LABS: HEMATOCRIT. 32.9 % (42.0-52.0); HEMOGLOBIN. 10.6 g/dL (14.0-18.0); MEAN CORPUSCULAR HEMOGLOBIN 28.9 pg (28.0-32.0); MEAN CORPUSCULAR VOLUME 89.6 fL (80.0-94.0); MEAN PLATELET VOLUME 9.4 fl (7.4-10.4); PLATELET 62 x1000/uL (130-400); RED BLOOD CELL COUNT 3.68 mill/uL (4.7-6.1)
[2019-10-21] VITALS (58 sets, daily range): BP systolic 85–126; BP diastolic 43–85
[2019-10-21] MEDS: IPRATROPIUM BROMIDE (0.02%) 0.5MG/2.5ML NEB HHN SCH ×4 (00:48→20:05)
[2019-10-21 05:57] LABS: PHOSPHORUS 7.4 mg/dL (2.5-4.9)
[2019-10-21] MEDS: INSULIN LISPRO 100 UNITS/ML SUBCUT SCH ×4 (06:00→18:00)
[2019-10-21 06:15] LABS: HEMATOCRIT. 33.6 % (42.0-52.0); MEAN CORPUSCULAR VOLUME 88.7 fL (80.0-94.0); MEAN PLATELET VOLUME 10.8 fl (7.4-10.4); RED BLOOD CELL COUNT 3.79 mill/uL (4.7-6.1); RED CELL DISTRIBUTION WIDTH 17.8 % (11.6-14.6)
[2019-10-21] MEDS: BLOOD SUGAR DIAGNOSTIC STRIP TEST SCH ×4 (06:47→18:02)
[2019-10-21 07:08] LABS: PLATELET 34 x1000/uL (130-400)
[2019-10-21] MEDS: PHENYLEPHRINE 80 MG in SODIUM CHLORIDE 0.9% 492 ML IV PRN ×2 (09:26→18:32)
[2019-10-21] MEDS: NOREPINEPHRINE 16 MG in DEXTROSE 5% WATER 250 ML IV PRN ×2 (09:26→18:32)
[2019-10-21 09:47] LABS: PLATELET ESTIMATE DECREASED
[2019-10-21 09:51] LABS: PLATELET ESTIMATE DECREASED
[2019-10-21] MEDS ORDERED: MEROPENEM 1,000 MG in SODIUM CHLORIDE 0.9% 100 ML IV SCH (10:30)
[2019-10-21 11:37] LABS: BG BASE EXCESS -7.7 mmol/L (-2.0-2.0); BG CARBOXYHEMOGLOBIN 0.8 % (0.5-1.5); BG DEOXYHEMOGLOBIN 4.8 % (0.0-5.0); BG FRACTION INSPIRED OXYGEN 35; BG HCO3 ACT 16.5 mmol/L (22.0-26.0); BG METHEMOGLOBIN 0.3 % (0.0-1.5); BG OXYGEN SATURATION 95.1 % (92.0-98.5); BG OXYHEMOGLOBIN 94.1 % (94.0-97.0); BG PH 7.359 (7.350-7.450); BG PO2 79.1 mmHg (75.0-100.0); BG SAMPLE SITE RIGHT RADIAL; BG TIDAL VOLUME(mL) 500 mL; BG TOTAL HEMOGLOBIN 11.9 g/dL (12.0-18.0); BG VENT MODE VENT - A/C; BG VENT RATE 12 set
[2019-10-21] MEDS: MEROPENEM 500MG in NORMAL SALINE 50ML IV SCH (12:00)
[2019-10-21] MEDS: MORPHINE SULFATE 2 MG/ML CPJ (NOT FOR IM USE) IV PRN ×4 (16:40→18:02)
[2019-10-21] MEDS: SODIUM CHLORIDE 23.4% 154 MEQ in DEXT 10% WATER 1,000 ML IV SCH (22:00)
[2019-10-22] VITALS (101 sets, daily range): BP systolic 67–157; BP diastolic 41–113
[2019-10-22] MEDS: BLOOD SUGAR DIAGNOSTIC STRIP TEST SCH ×4 (00:19→17:17)
[2019-10-22] MEDS: MEROPENEM 500MG in NORMAL SALINE 50ML IV SCH ×2 (00:19→10:58)
[2019-10-22] MEDS: IPRATROPIUM BROMIDE (0.02%) 0.5MG/2.5ML NEB HHN SCH ×4 (01:47→20:32)
[2019-10-22] MEDS: MORPHINE SULFATE 2 MG/ML CPJ (NOT FOR IM USE) IV PRN ×3 (04:27→22:11)
[2019-10-22] MEDS: LORAZEPAM 2MG/ML CPJ IV PRN ×3 (04:27→22:11)
[2019-10-22] MEDS: INSULIN LISPRO 100 UNITS/ML SUBCUT SCH ×4 (06:00→17:17)
[2019-10-22 06:48] LABS: HEMOGLOBIN. 9.6 g/dL (14.0-18.0); MEAN CORPUSCULAR HEMOGLOBIN 28.7 pg (28.0-32.0); MEAN CORPUSCULAR VOLUME 89.5 fL (80.0-94.0); MEAN PLATELET VOLUME 12.6 fl (7.4-10.4); RED BLOOD CELL COUNT 3.35 mill/uL (4.7-6.1); RED CELL DISTRIBUTION WIDTH 18.2 % (11.6-14.6)
[2019-10-22] MEDS: PHENYLEPHRINE 80 MG in SODIUM CHLORIDE 0.9% 492 ML IV PRN ×2 (06:49→17:42)
[2019-10-22] MEDS: NOREPINEPHRINE 16 MG in DEXTROSE 5% WATER 250 ML IV PRN (06:51)
[2019-10-22 06:58] LABS: PLATELET 27 x1000/uL (130-400)
[2019-10-22 07:43] LABS: BG BASE EXCESS -8.4 mmol/L (-2.0-2.0); BG CARBOXYHEMOGLOBIN 0.1 % (0.5-1.5); BG DEOXYHEMOGLOBIN 2.2 % (0.0-5.0); BG FRACTION INSPIRED OXYGEN 35; BG HCO3 ACT 16.9 mmol/L (22.0-26.0); BG METHEMOGLOBIN 0.3 % (0.0-1.5); BG OXYGEN SATURATION 97.8 % (92.0-98.5); BG OXYHEMOGLOBIN 97.4 % (94.0-97.0); BG PH 7.314 (7.350-7.450); BG PO2 120.6 mmHg (75.0-100.0); BG SAMPLE SITE RIGHT RADIAL; BG TIDAL VOLUME(mL) 500 mL; BG TOTAL HEMOGLOBIN 10.5 g/dL (12.0-18.0); BG VENT MODE VENT - A/C; BG VENT RATE 12 set
[2019-10-22] MEDS: PANTOPRAZOLE SODIUM 40 MG/VIAL IV SCH (10:58)
[2019-10-22 13:17] LABS: PLATELET ESTIMATE MARKEDLY DECREASED
[2019-10-22 17:51] LABS: INR 1.5
[2019-10-23] VITALS (93 sets, daily range): BP systolic 58–150; BP diastolic 23–106
[2019-10-23] MEDS: SODIUM CHLORIDE 23.4% 154 MEQ in DEXT 10% WATER 1,000 ML IV SCH (01:02)
[2019-10-23] MEDS: MEROPENEM 500MG in NORMAL SALINE 50ML IV SCH ×2 (01:58→11:22)
[2019-10-23] MEDS: DEXTROSE 50% WATER 50ML SYRINGE IV PRN ×3 (02:09→17:05)
[2019-10-23] MEDS: IPRATROPIUM BROMIDE (0.02%) 0.5MG/2.5ML NEB HHN SCH ×4 (02:58→20:01)
[2019-10-23] MEDS: PHENYLEPHRINE 80 MG in SODIUM CHLORIDE 0.9% 492 ML IV PRN ×3 (03:49→23:07)
[2019-10-23 05:45] LABS: HEMATOCRIT. 29.6 % (42.0-52.0); HEMOGLOBIN. 9.7 g/dL (14.0-18.0); MEAN CORPUSCULAR HEMOGLOBIN 29.4 pg (28.0-32.0); MEAN CORPUSCULAR VOLUME 90.1 fL (80.0-94.0); MEAN PLATELET VOLUME 10.2 fl (7.4-10.4); RED BLOOD CELL COUNT 3.29 mill/uL (4.7-6.1); RED CELL DISTRIBUTION WIDTH 18.9 % (11.6-14.6)
[2019-10-23 05:49] LABS: CHLORIDE 109 mEq/L (98-107)
[2019-10-23 05:54] LABS: PHOSPHORUS 5.7 mg/dL (2.5-4.9)
[2019-10-23 05:57] LABS: PLATELET 19 x1000/uL (130-400)
[2019-10-23] MEDS: INSULIN LISPRO 100 UNITS/ML SUBCUT SCH ×4 (06:00→17:09)
[2019-10-23] MEDS: BLOOD SUGAR DIAGNOSTIC STRIP TEST SCH ×4 (06:39→17:10)
[2019-10-23] MEDS: NOREPINEPHRINE 16 MG in DEXTROSE 5% WATER 250 ML IV PRN (07:12)
[2019-10-23] MEDS: LORAZEPAM 2MG/ML CPJ IV PRN ×2 (08:07→14:17)
[2019-10-23] MEDS: PANTOPRAZOLE SODIUM 40 MG/VIAL IV SCH (08:07)
[2019-10-23 09:31] LABS: BG BASE EXCESS -6.9 mmol/L (-2.0-2.0); BG CARBOXYHEMOGLOBIN 0.3 % (0.5-1.5); BG DEOXYHEMOGLOBIN 3.4 % (0.0-5.0); BG FRACTION INSPIRED OXYGEN 35; BG HCO3 ACT 17.7 mmol/L (22.0-26.0); BG METHEMOGLOBIN 0.2 % (0.0-1.5); BG OXYGEN SATURATION 96.6 % (92.0-98.5); BG OXYHEMOGLOBIN 96.1 % (94.0-97.0); BG PO2 93.7 mmHg (75.0-100.0); BG SAMPLE SITE RIGHT RADIAL; BG TIDAL VOLUME(mL) 500 mL; BG TOTAL HEMOGLOBIN 10.1 g/dL (12.0-18.0); BG VENT MODE VENT - A/C; BG VENT RATE 12 set
[2019-10-23] MEDS: MORPHINE SULFATE 2 MG/ML CPJ (NOT FOR IM USE) IV PRN ×2 (09:31→17:25)
[2019-10-23 10:04] LABS: PLATELET ESTIMATE MARKEDLY DECREASED
[2019-10-24] VITALS (58 sets, daily range): BP systolic 91–156; BP diastolic 44–108
[2019-10-24] MEDS: BLOOD SUGAR DIAGNOSTIC STRIP TEST SCH ×2 (00:15→06:00)
[2019-10-24] MEDS: MEROPENEM 500MG in NORMAL SALINE 50ML IV SCH ×2 (00:16→11:43)
[2019-10-24] MEDS: DEXTROSE 50% WATER 50ML SYRINGE IV PRN (00:28)
[2019-10-24] MEDS: SODIUM CHLORIDE 23.4% 154 MEQ in DEXT 10% WATER 1,000 ML IV SCH (01:36)
[2019-10-24] MEDS: IPRATROPIUM BROMIDE (0.02%) 0.5MG/2.5ML NEB HHN SCH ×2 (02:16→08:26)
[2019-10-24] MEDS: INSULIN LISPRO 100 UNITS/ML SUBCUT SCH ×2 (06:00)
[2019-10-24 07:50] LABS: HEMATOCRIT. 26.7 % (42.0-52.0); HEMOGLOBIN. 8.5 g/dL (14.0-18.0); MEAN CORPUSCULAR HEMOGLOBIN 29.1 pg (28.0-32.0); MEAN CORPUSCULAR VOLUME 92.1 fL (80.0-94.0); MEAN PLATELET VOLUME 10.8 fl (7.4-10.4)
[2019-10-24] MEDS: PHENYLEPHRINE 80 MG in SODIUM CHLORIDE 0.9% 492 ML IV PRN ×2 (07:54→08:10)
[2019-10-24 07:55] LABS: PLATELET 15 x1000/uL (130-400)
[2019-10-24 08:28] LABS: CHLORIDE 113 mEq/L (98-107)
[2019-10-24 09:18] LABS: PLATELET ESTIMATE MARKEDLY DECREASED
[2019-10-24] MEDS: PANTOPRAZOLE SODIUM 40 MG/VIAL IV SCH (10:00)
[2019-10-24] MEDS ORDERED: IPRATROPIUM/ALBUTEROL 0.5-3(2.5)MG/3ML NEB HHN PRN (10:30)
[2019-10-24] MEDS ORDERED: HALOPERIDOL LACTATE 5MG/ML VIAL IM PRN (10:30)
[2019-10-24] MEDS ORDERED: MORPHINE SULFATE 250 MG in DEXT 5% WATER 240 ML IV PRN (10:30)
[2019-10-24] MEDS ORDERED: LORAZEPAM 2MG/ML CPJ IV PRN (10:30)
[2019-10-24] MEDS ORDERED: DOXYCYCLINE 100 MG in DEXT 5% WATER 100 ML IV SCH (15:00)
[2019-10-24] MEDS ORDERED: FAT EMULSIONS 500 ML IV SCH (21:00)
[2019-10-24] MEDS ORDERED: TOTAL PARENTERAL NUTRITION IV SCH (21:00)
[2019-10-27] MEDS ORDERED: PHYTONADIONE 10MG/ML AMP SUBCUT SCH (09:00)
== END 2019-10-25 | disposition expired | DRG 710 ==
LOC: ER 19:12 → CVICU 22:48 → EDBEDREQ 22:52 → EDBEDREQSVC 22:52 → EDBEDREQTM 22:52 → EDBEDREQSVC 23:54 → ENRESERV 09-18 01:39 → 3WST 09-24 21:40 → 6WST 09-28 12:30 → CVICU 10-10 16:23
PROVIDERS: ADMIT Internal Medicine; ATTEND Internal Medicine
PROC: 30233R1 Transfusion of Nonautologous Platelets into Peripheral Vein, Percutaneous Approach (ICD-10-PCS; 2019-09-19)
PROC: 05HY33Z Insertion of Infusion Device into Upper Vein, Percutaneous Approach (ICD-10-PCS; 2019-09-19)
PROC: B54NZZZ Ultrasonography of Left Upper Extremity Veins (ICD-10-PCS; 2019-09-19)
PROC: 5A1D70Z Performance of Urinary Filtration, Intermittent, Less than 6 Hours Per Day (ICD-10-PCS; 2019-09-24)
PROC: 06HY33Z Insertion of Infusion Device into Lower Vein, Percutaneous Approach (ICD-10-PCS; 2019-09-24)
PROC: B54BZZZ Ultrasonography of Right Lower Extremity Veins (ICD-10-PCS; 2019-09-24)
PROC: 02HV33Z Insertion of Infusion Device into Superior Vena Cava, Percutaneous Approach (ICD-10-PCS; 2019-09-25)
PROC: B548ZZA Ultrasonography of Superior Vena Cava, Guidance (ICD-10-PCS; 2019-09-25)
PROC: 5A1D70Z Performance of Urinary Filtration, Intermittent, Less than 6 Hours Per Day (ICD-10-PCS; 2019-09-26)
PROC: 5A1D70Z Performance of Urinary Filtration, Intermittent, Less than 6 Hours Per Day (ICD-10-PCS; 2019-09-29)
PROC: 5A1D70Z Performance of Urinary Filtration, Intermittent, Less than 6 Hours Per Day (ICD-10-PCS; 2019-10-01)
PROC: 5A1D70Z Performance of Urinary Filtration, Intermittent, Less than 6 Hours Per Day (ICD-10-PCS; 2019-10-03)
PROC: 0JH63XZ Insertion of Tunneled Vascular Access Device into Chest Subcutaneous Tissue and Fascia, Percutaneous Approach (ICD-10-PCS; 2019-10-03)
PROC: 02HV33Z Insertion of Infusion Device into Superior Vena Cava, Percutaneous Approach (ICD-10-PCS; 2019-10-03)
PROC: B5181ZA Fluoroscopy of Superior Vena Cava using Low Osmolar Contrast, Guidance (ICD-10-PCS; 2019-10-03)
PROC: B548ZZA Ultrasonography of Superior Vena Cava, Guidance (ICD-10-PCS; 2019-10-03)
PROC: 0W9G30Z Drainage of Peritoneal Cavity with Drainage Device, Percutaneous Approach (ICD-10-PCS; 2019-10-03)
PROC: 5A1D70Z Performance of Urinary Filtration, Intermittent, Less than 6 Hours Per Day (ICD-10-PCS; 2019-10-05)
PROC: 30233N1 Transfusion of Nonautologous Red Blood Cells into Peripheral Vein, Percutaneous Approach (ICD-10-PCS; 2019-10-06)
PROC: 5A1D70Z Performance of Urinary Filtration, Intermittent, Less than 6 Hours Per Day (ICD-10-PCS; 2019-10-06)
PROC: 5A1D70Z Performance of Urinary Filtration, Intermittent, Less than 6 Hours Per Day (ICD-10-PCS; 2019-10-08)
PROC: 5A1955Z Respiratory Ventilation, Greater than 96 Consecutive Hours (ICD-10-PCS; principal; 2019-10-10)
PROC: 0BH17EZ Insertion of Endotracheal Airway into Trachea, Via Natural or Artificial Opening (ICD-10-PCS; 2019-10-10)
PROC: 5A1D70Z Performance of Urinary Filtration, Intermittent, Less than 6 Hours Per Day (ICD-10-PCS; 2019-10-10)
PROC: 5A1D70Z Performance of Urinary Filtration, Intermittent, Less than 6 Hours Per Day (ICD-10-PCS; 2019-10-13)
PROC: 5A1D70Z Performance of Urinary Filtration, Intermittent, Less than 6 Hours Per Day (ICD-10-PCS; 2019-10-16)
PROC: 5A1D70Z Performance of Urinary Filtration, Intermittent, Less than 6 Hours Per Day (ICD-10-PCS; 2019-10-20)
PROC: 0D1B0Z4 Bypass Ileum to Cutaneous, Open Approach (ICD-10-PCS; 2019-10-21)
PROC: 0DTF0ZZ Resection of Right Large Intestine, Open Approach (ICD-10-PCS; 2019-10-21)
PROC: 5A1D70Z Performance of Urinary Filtration, Intermittent, Less than 6 Hours Per Day (ICD-10-PCS; 2019-10-22)
PROC: 5A1D70Z Performance of Urinary Filtration, Intermittent, Less than 6 Hours Per Day (ICD-10-PCS; 2019-10-23)
DX: A41.51 Sepsis due to Escherichia coli [E. coli] (principal); J96.01 Acute respiratory failure with hypoxia; K55.049 Acute infarction of large intestine, extent unspecified; K72.00 Acute and subacute hepatic failure without coma; R65.21 Severe sepsis with septic shock; E43 Unspecified severe protein-calorie malnutrition; J15.0 Pneumonia due to Klebsiella pneumoniae; K63.1 Perforation of intestine (nontraumatic); L89.159 Pressure ulcer of sacral region, unspecified stage; G93.41 Metabolic encephalopathy; N18.6 End stage renal disease; N17.9 Acute kidney failure, unspecified; K56.7 Ileus, unspecified; D70.3 Neutropenia due to infection; E11.42 Type 2 diabetes mellitus with diabetic polyneuropathy; E11.649 Type 2 diabetes mellitus with hypoglycemia without coma; I13.2 Hypertensive heart and chronic kidney disease with heart failure and with stage 5 chronic kidney disease, or end stage renal disease; E87.2 Acidosis; I50.23 Acute on chronic systolic (congestive) heart failure; I27.20 Pulmonary hypertension, unspecified; I42.0 Dilated cardiomyopathy; F15.129 Other stimulant abuse with intoxication, unspecified; E87.6 Hypokalemia; E87.1 Hypo-osmolality and hyponatremia; I48.19 Other persistent atrial fibrillation; K65.8 Other peritonitis; B19.20 Unspecified viral hepatitis C without hepatic coma; D63.8 Anemia in other chronic diseases classified elsewhere; D68.59 Other primary thrombophilia; E11.22 Type 2 diabetes mellitus with diabetic chronic kidney disease; E83.39 Other disorders of phosphorus metabolism; F17.210 Nicotine dependence, cigarettes, uncomplicated; I48.92 Unspecified atrial flutter; J44.0 Chronic obstructive pulmonary disease with (acute) lower respiratory infection; K42.9 Umbilical hernia without obstruction or gangrene; K40.90 Unilateral inguinal hernia, without obstruction or gangrene, not specified as recurrent; K66.0 Peritoneal adhesions (postprocedural) (postinfection); K74.60 Unspecified cirrhosis of liver; R74.0 Nonspecific elevation of levels of transaminase and lactic acid dehydrogenase [LDH]; D69.59 Other secondary thrombocytopenia; L03.115 Cellulitis of right lower limb; L03.116 Cellulitis of left lower limb; R18.8 Other ascites; Z66 Do not resuscitate; Z51.5 Encounter for palliative care; Z59.0 Homelessness; Z82.49 Family history of ischemic heart disease and other diseases of the circulatory system; Z91.14 Patient's other noncompliance with medication regimen; Z91.19 Patient's noncompliance with other medical treatment and regimen; Z99.2 Dependence on renal dialysis; Z79.899 Other long term (current) drug therapy; Z71.6 Tobacco abuse counseling; Z71.51 Drug abuse counseling and surveillance of drug abuser; Z68.26 Body mass index [BMI] 26.0-26.9, adult
CPT/HCPCS: 10030; 36415; 36556; 36558; 36589; 36600; 71045; 73700; 74018; 74176; 76604; 76700; 76937; 77001; 80048; 80053; 80076; 80150; 80162; 80202; 80305; 80320; 81003; 82140; 82248; 82270; 82330; 82375; 82550; 82570; 82805; 82962; 83036; 83540; 83550; 83605; 83735; 83880; 84100; 84134; 84145; 84300; 84443; 84478; 84484; 85014; 85018; 85025; 85027; 85049; 85384; 85651; 86141; 86705; 86706; 86709; 86803; 86850; 86900; 86920; 86945; 87070; 87075; 87077; 87186; 87340; 87389; 88307; 88309; 93005; 93306; 93923; 93970; 94003; 94640; 97110; 97162; 97167; 97530; 97535; 99285; A6261; C1725; C1729; C1750; C1752; C1769; C1887; C9113; J0278; J0690; J0692; J1100; J1160; J1200; J1250; J1442; J1610; J1630; J1644; J1815; J1940; J2020; J2060; J2185; J2250; J2270; J2354; J2370; J2405; J2543; J2920; J3010; J3370; J3475; J3490; J7030; J7040; J7042; J7050; J7060; J7070; J7131; P9016; P9034; P9041; P9047; A4315; G0480